=== PATIENT | male | born 1975 | race African-American/Black ===

== ENCOUNTER 2017-06-26 10:42 | Emergency (ER) | payer MEDICAID ==
[~2017-06-26] VITALS: Ht 175.3 cm; Wt 84.0 kg
[~2017-06-26 10:42] MED LIST: ALBU18HF2 IH; ALBU6.7H INH; AMLO2.5T45 PO; ASPI-1159 PO; ATOR80TA; CARV12.545 PO; CLOP75TA33 PO; DOCU-150 PO; FAMO20TA8 PO; HYDR-4009 PO; ISOS20TA8 PO; LOSA25TA12 PO; METO-539 PO; NICO1PAT15 TP; NITR0.4T49 SL; PANT40TA4 PO; PRAS10TA6 PO; RANO500T3 PO; TIOT18CA3 INH; WARF5TAB73 PO
[2017-06-26] MEDS ORDERED: ASPIRIN 81MG TABLET PO ONE (13:30)
[2017-06-26 14:38] LABS: BASOPHILS % 0.6 % (0.0-2.0); EOSINOPHILS % 0.5 % (0.0-5.0); HEMATOCRIT. 44.1 % (42.0-52.0); HEMOGLOBIN. 14.5 g/dL (14.0-18.0); LYMPHOCYTES % 26.5 % (20.0-50.0); MEAN CORPUSCULAR HEMOGLOBIN 30.9 pg (28.0-32.0); MEAN CORPUSCULAR VOLUME 93.7 fL (80.0-94.0); MEAN PLATELET VOLUME 9.2 fl (7.4-10.4); MONOCYTES % 10.7 % (2.0-8.0); NEUTROPHILS % 61.7 % (40.0-76.0); PLATELET 249 x1000/uL (130-400); RED CELL DISTRIBUTION WIDTH 15.8 % (11.6-14.6)
[2017-06-26 14:54] LABS: CHLORIDE 105 mEq/L (98-107); TROPONIN I < 0.02 ng/mL (0.00-0.04)
[2017-06-26 15:21] LABS: INR 1.1; PROTHROMBIN TIME 11.5 sec (9.4-11.6)
[2017-06-26 15:55] VITALS: BP 136/81
== END 2017-06-26 17:57 | disposition left against medical advice (07) ==
LOC: ER 11:32 → EDBEDREQ 15:49 → EDBEDREQTM 15:49 → ER 17:57 → CANBEDREQ 18:39
DX: R07.9 Chest pain, unspecified (principal); R11.2 Nausea with vomiting, unspecified; R06.9 Unspecified abnormalities of breathing; I11.0 Hypertensive heart disease with heart failure; I50.9 Heart failure, unspecified; J45.909 Unspecified asthma, uncomplicated; I25.10 Atherosclerotic heart disease of native coronary artery without angina pectoris; G40.909 Epilepsy, unspecified, not intractable, without status epilepticus; F17.200 Nicotine dependence, unspecified, uncomplicated; E78.00 Pure hypercholesterolemia, unspecified; E11.9 Type 2 diabetes mellitus without complications; F12.10 Cannabis abuse, uncomplicated; Z79.01 Long term (current) use of anticoagulants; Z79.82 Long term (current) use of aspirin; Z88.0 Allergy status to penicillin; Z95.5 Presence of coronary angioplasty implant and graft; Z91.018 Allergy to other foods
CPT/HCPCS: 36415; 71045; 80053; 83880; 84484; 85025; 85610; 93005; 99285

== ENCOUNTER 2017-11-03 06:21 | Emergency (ER) | payer MEDICAID ==
[~2017-11-03 06:21] MED LIST changes: +WARF-53 PO; -WARF5TAB73 PO
== END 2017-11-03 07:33 | disposition left against medical advice (07) ==
LOC: ER 07:20
DX: R07.9 Chest pain, unspecified (principal); Z53.21 Procedure and treatment not carried out due to patient leaving prior to being seen by health care provider

== ENCOUNTER 2017-11-05 14:36 | Inpatient (IN) | payer MEDICAID ==
[~2017-11-05] VITALS: Ht 175.3 cm; Wt 83.5 kg
[2017-11-05] MEDS ORDERED: ASPIRIN 81MG TABLET PO STA (14:58)
[2017-11-05] MEDS ORDERED: ONDANSETRON HCL 4MG/2ML VIAL IV STA (14:58)
[2017-11-05] MEDS ORDERED: MORPHINE SULFATE 4 MG/ML CPJ (NOT FOR IM USE) IV STA (14:58)
[2017-11-05] MEDS ORDERED: IPRATROPIUM/ALBUTEROL 0.5-3(2.5)MG/3ML NEB HHN ONE (15:00)
[2017-11-05] MEDS ORDERED: LEVOFLOXACIN 500MG TABLET PO ONE (15:00)
[2017-11-05] MEDS ORDERED: PREDNISONE 20MG TABLET PO ONE (15:00)
[2017-11-05 15:19] LABS: BASOPHILS % 0.7 % (0.0-2.0); EOSINOPHILS % 0.3 % (0.0-5.0); HEMATOCRIT. 44.6 % (42.0-52.0); HEMOGLOBIN. 15.1 g/dL (14.0-18.0); MEAN CORPUSCULAR HEMOGLOBIN 31.3 pg (28.0-32.0); MEAN CORPUSCULAR VOLUME 92.6 fL (80.0-94.0); MEAN PLATELET VOLUME 9.4 fl (7.4-10.4); PLATELET 204 x1000/uL (130-400); RED BLOOD CELL COUNT 4.81 mill/uL (4.7-6.1); RED CELL DISTRIBUTION WIDTH 16.8 % (11.6-14.6)
[2017-11-05 15:20] LABS: CHLORIDE 105 mEq/L (98-107)
[2017-11-05 15:25] LABS: D-DIMER 0.22 mg/L FEU (<0.50); ETHANOL BLOOD < 10 mg/dL; PARTIAL THROMBOPLASTIN TIME 31.9 sec (23.4-31.0)
[2017-11-05 15:30] LABS: PROTHROMBIN TIME 31.4 sec (9.4-11.6)
[2017-11-05 15:50] LABS: CLARITY URINE CLEAR (CLEAR); COLOR URINE DARK YELLOW (YELLOW); KETONES URINE 1+ (NEGATIVE); LEUKOCYTE ESTERASE URINE TRACE (NEGATIVE); NITRITE URINE NEGATIVE (NEGATIVE); OCCULT BLOOD URINE NEGATIVE (NEGATIVE); PH URINE 5.5 (4.5-8.0); PROTEIN URINE 1+ (NEGATIVE); SPECIFIC GRAVITY URINE 1.033 (1.005-1.030)
[2017-11-05 16:02] LABS: *COCAINE SCREEN URINE NEGATIVE (NEGATIVE); METHADONE URINE SCREEN NEGATIVE (NEGATIVE)
[2017-11-05 16:03] LABS: OPIATES URINE SCREEN PRESUMTIVE POSITIVE (NEGATIVE); PHENCYCLIDINE URINE SCREEN NEGATIVE (NEGATIVE)
[2017-11-05 16:06] LABS: *AMPHETAMINES SCREEN URINE NEGATIVE (NEGATIVE); *BARBITURATES SCREEN URINE NEGATIVE (NEGATIVE); *BENZODIAZEPINES SCREEN URINE NEGATIVE (NEGATIVE); CANNABINOID URINE SCREEN PRESUMTIVE POSITIVE (NEGATIVE)
[2017-11-05 19:03] VITALS: BP 124/77
[2017-11-05] MEDS ORDERED: IPRATROPIUM/ALBUTEROL 0.5-3(2.5)MG/3ML NEB INH PRN (19:15)
[2017-11-05] MEDS ORDERED: MAGNESIUM/ALUMINUM HYDROXIDE/SIMETHICONE 30ML UDC PO PRN (19:15)
[2017-11-05] MEDS ORDERED: LORAZEPAM 2MG/ML CPJ IV PRN (19:15)
[2017-11-05] MEDS ORDERED: CLONIDINE 0.1MG TABLET PO PRN (19:15)
[2017-11-05] MEDS ORDERED: HYDROCODONE/ACETAMINOPHEN 5/325MG TABLET PO PRN (19:15)
[2017-11-05] MEDS ORDERED: ACETAMINOPHEN 325MG TABLET PO PRN (19:15)
[2017-11-05] MEDS ORDERED: GUAIFENESIN 200MG/10ML SUGAR FREE UDC PO PRN (19:15)
[2017-11-05] MEDS ORDERED: DOCUSATE SODIUM 100MG CAPSULE PO PRN (19:15)
[2017-11-05 19:51] VITALS: BP 123/74
[2017-11-05 20:00] VITALS: BP 123/74
[2017-11-05] MEDS: ONDANSETRON HCL 4MG/2ML VIAL IV PRN (20:15)
[2017-11-05] MEDS: MORPHINE SULFATE 4 MG/ML CPJ (NOT FOR IM USE) IV PRN (20:42)
[2017-11-05] MEDS ORDERED: NA PHOS,M-B/NA PHOS,DI-BA ENEMA 118ML PR PRN (21:00)
[2017-11-06] VITALS: BP 116/60
[2017-11-06 00:23] LABS: CHLORIDE 105 mEq/L (98-107)
[2017-11-06] MEDS: MORPHINE SULFATE 4 MG/ML CPJ (NOT FOR IM USE) IV PRN ×6 (01:00→22:43)
[2017-11-06] MEDS ORDERED: FURO20TA4 PO (03:24)
[2017-11-06] MEDS ORDERED: LEVE1000 MT (03:24)
[2017-11-06] MEDS ORDERED: DILT30TA38 PO (03:24)
[2017-11-06 04:00] VITALS: BP 115/64
[2017-11-06] MEDS: ONDANSETRON HCL 4MG/2ML VIAL IV PRN ×3 (06:36→20:41)
[2017-11-06 07:34] LABS: BASOPHILS % 0.5 % (0.0-2.0); EOSINOPHILS % 0.1 % (0.0-5.0); HEMATOCRIT. 42.4 % (42.0-52.0); HEMOGLOBIN. 14.3 g/dL (14.0-18.0); LYMPHOCYTES % 20.8 % (20.0-50.0); MEAN CORPUSCULAR HEMOGLOBIN 31.2 pg (28.0-32.0); MEAN CORPUSCULAR VOLUME 92.6 fL (80.0-94.0); MEAN PLATELET VOLUME 9.9 fl (7.4-10.4); NEUTROPHILS % 69.6 % (40.0-76.0); PLATELET 186 x1000/uL (130-400); RED BLOOD CELL COUNT 4.57 mill/uL (4.7-6.1); RED CELL DISTRIBUTION WIDTH 16.8 % (11.6-14.6)
[2017-11-06 07:49] LABS: CHLORIDE 107 mEq/L (98-107)
[2017-11-06 08:00] VITALS: BP 106/62
[2017-11-06 08:07] LABS: LDL CHOLESTEROL 51 mg/dL (5-100)
[2017-11-06 08:08] LABS: HDL CHOLESTEROL 48 mg/dL (40-59); T4 FREE 1.02 ng/dL (0.76-1.46)
[2017-11-06] MEDS: AMLODIPINE 5MG TABLET PO SCH ×2 (10:00→20:50)
[2017-11-06] MEDS: METOPROLOL TARTRATE 25MG TABLET PO SCH ×2 (10:15→20:50)
[2017-11-06] MEDS: ISOSORBIDE MONONITRATE 30MG TABLET SR 24HR PO SCH (10:15)
[2017-11-06] MEDS: CLOPIDOGREL 75MG TABLET PO SCH (11:00)
[2017-11-06] MEDS: ASPIRIN 81MG EC TABLET PO SCH (11:00)
[2017-11-06 12:00] VITALS: BP 109/65
[2017-11-06 12:19] LABS: INR 3.1; PROTHROMBIN TIME 31.7 sec (9.4-11.6)
[2017-11-06 16:00] VITALS: BP 105/54
[2017-11-06] MEDS ORDERED: BENZONATATE 100MG CAPSULE PO PRN (17:15)
[2017-11-06] MEDS ORDERED: AZITHROMYCIN 500 MG TABLET PO NR (17:15)
[2017-11-06] MEDS ORDERED: WARFARIN SODIUM 5MG TABLET PO SCH (18:30)
[2017-11-06 20:00] VITALS: BP 109/73
[2017-11-06] MEDS: FAMOTIDINE 20MG/2ML VIAL IV SCH (20:42)
[2017-11-06] MEDS ORDERED: ATORVASTATIN CALCIUM 40MG TABLET PO SCH (21:00)
[2017-11-06] MEDS: IPRATROPIUM/ALBUTEROL 0.5-3(2.5)MG/3ML NEB HHN SCH (21:04)
[2017-11-07] VITALS (7 sets, daily range): BP systolic 100–118; BP diastolic 60–77
[2017-11-07] MEDS: IPRATROPIUM/ALBUTEROL 0.5-3(2.5)MG/3ML NEB HHN SCH ×2 (01:23→09:28)
[2017-11-07] MEDS: ONDANSETRON HCL 4MG/2ML VIAL IV PRN ×2 (03:14→08:22)
[2017-11-07] MEDS: MORPHINE SULFATE 4 MG/ML CPJ (NOT FOR IM USE) IV PRN (03:22)
[2017-11-07] MEDS: AMLODIPINE 5MG TABLET PO SCH (08:22)
[2017-11-07] MEDS: FAMOTIDINE 20MG/2ML VIAL IV SCH (08:22)
[2017-11-07] MEDS: ISOSORBIDE MONONITRATE 30MG TABLET SR 24HR PO SCH (08:23)
[2017-11-07] MEDS: ASPIRIN 81MG EC TABLET PO SCH (08:24)
[2017-11-07] MEDS: METOPROLOL TARTRATE 25MG TABLET PO SCH (08:24)
[2017-11-07] MEDS: CLOPIDOGREL 75MG TABLET PO SCH (08:24)
[2017-11-07] MEDS ORDERED: AZITHROMYCIN 500 MG TABLET PO SCH (09:00)
[2017-11-07] MEDS ORDERED: MONTELUKAST SODIUM 10MG TABLET PO SCH (17:00)
== END 2017-11-07 10:40 | disposition home or self-care (01) | DRG 133 ==
LOC: EDBEDREQ 16:17 → ER 16:31 → ENRESERV 16:55 → 6WST 18:10
PROVIDERS: ADMIT Internal Medicine; ATTEND Internal Medicine
DX: J96.00 Acute respiratory failure, unspecified whether with hypoxia or hypercapnia (principal); D68.9 Coagulation defect, unspecified; I50.9 Heart failure, unspecified; J45.901 Unspecified asthma with (acute) exacerbation; K21.9 Gastro-esophageal reflux disease without esophagitis; I10 Essential (primary) hypertension; E78.5 Hyperlipidemia, unspecified; E05.90 Thyrotoxicosis, unspecified without thyrotoxic crisis or storm; Z72.0 Tobacco use; J06.9 Acute upper respiratory infection, unspecified; M85.08 Fibrous dysplasia (monostotic), other site; I25.10 Atherosclerotic heart disease of native coronary artery without angina pectoris; G40.909 Epilepsy, unspecified, not intractable, without status epilepticus
CPT/HCPCS: 36415; 71045; 80048; 80053; 80061; 80305; 81003; 82962; 83690; 83880; 84439; 84443; 84484; 85025; 85379; 85610; 85730; 93005; 94640; 96374; 96375; 99285; 99406; G0482; J2270; J2405; J3490; J7512; J7620

== ENCOUNTER 2018-03-23 06:12 | Emergency (ER) | payer MEDICAID ==
[~2018-03-23] VITALS: Ht 175.3 cm; Wt 86.3 kg
[~2018-03-23 06:12] MED LIST changes: -ALBU18HF2 IH; -ALBU6.7H INH; -ATOR80TA; -CARV12.545 PO; +CLOP75TA16 PO; -CLOP75TA33 PO; +DILT30TA38 PO; -DOCU-150 PO; +HYDR-4009 MT; -HYDR-4009 PO; -ISOS20TA8 PO; +LACT10SO7 PO; +LEVE1000 MT; +LIP40 PO; -LOSA25TA12 PO; -METO-539 PO; +NEPVIT PO; -NICO1PAT15 TP; -NITR0.4T49 SL; -PANT40TA4 PO; -PRAS10TA6 PO; -RANO500T3 PO; -WARF-53 PO; +WARF7.5T22 MT
[2018-03-23] MEDS ORDERED: HYDROCODONE/ACETAMINOPHEN 5/325MG TABLET PO STA (09:49)
[2018-03-23 10:11] LABS: INR 1.2; PROTHROMBIN TIME 11.8 sec (9.1-11.1)
[2018-03-23 10:15] LABS: BASOPHILS % 0.5 % (0.0-2.0); EOSINOPHILS % 0.4 % (0.0-5.0); HEMATOCRIT. 41.5 % (42.0-52.0); HEMOGLOBIN. 13.8 g/dL (14.0-18.0); LYMPHOCYTES % 28.6 % (20.0-50.0); MEAN CORPUSCULAR HEMOGLOBIN 31.2 pg (28.0-32.0); MEAN CORPUSCULAR VOLUME 93.5 fL (80.0-94.0); MEAN PLATELET VOLUME 9.3 fl (7.4-10.4); MONOCYTES % 9.2 % (2.0-8.0); NEUTROPHILS % 61.3 % (40.0-76.0); PLATELET 237 x1000/uL (130-400); RED BLOOD CELL COUNT 4.44 mill/uL (4.7-6.1); RED CELL DISTRIBUTION WIDTH 16.8 % (11.6-14.6)
[2018-03-23 10:16] LABS: CHLORIDE 107 mEq/L (98-107)
[2018-03-23] MEDS ORDERED: ONDANSETRON 4MG/5ML UDC PO ONE (10:30)
[2018-03-23 10:35] LABS: CLARITY URINE CLEAR (CLEAR); COLOR URINE YELLOW (YELLOW); KETONES URINE NEGATIVE (NEGATIVE); LEUKOCYTE ESTERASE URINE NEGATIVE (NEGATIVE); NITRITE URINE NEGATIVE (NEGATIVE); OCCULT BLOOD URINE NEGATIVE (NEGATIVE); PROTEIN URINE NEGATIVE (NEGATIVE); SPECIFIC GRAVITY URINE 1.025 (1.005-1.030); UROBILINOGEN URINE 0.2 E.U./dL (0.2-1.0)
[2018-03-23 10:56] LABS: *AMPHETAMINES SCREEN URINE NEGATIVE (NEGATIVE); *BENZODIAZEPINES SCREEN URINE NEGATIVE (NEGATIVE); *COCAINE SCREEN URINE NEGATIVE (NEGATIVE); CANNABINOID URINE SCREEN PRESUMTIVE POSITIVE (NEGATIVE); METHADONE URINE SCREEN NEGATIVE (NEGATIVE); OPIATES URINE SCREEN NEGATIVE (NEGATIVE)
[2018-03-23 11:05] LABS: *BARBITURATES SCREEN URINE NEGATIVE (NEGATIVE); PHENCYCLIDINE URINE SCREEN NEGATIVE (NEGATIVE)
[2018-03-23] MEDS ORDERED: ONDANSETRON HCL 4MG/2ML INJ IV PRN (11:45)
[2018-03-23] MEDS ORDERED: HYDROCODONE/ACETAMINOPHEN 5/325MG TABLET PO PRN (11:45)
[2018-03-23 12:21] LABS: CREATINE KINASE 95 IU/L (39-308); CREATINE KINASE MB FRACTION < 1.0 ng/mL (0.5-3.6)
[2018-03-23] MEDS ORDERED: CARVEDILOL 3.125 MG TABLET PO SCH (12:45)
[2018-03-23] MEDS: MORPHINE SULFATE 4 MG/ML CPJ (NOT FOR IM USE) IV PRN ×2 (14:04→18:20)
[2018-03-23] MEDS ORDERED: ENOXAPARIN 80MG/0.8ML SYR SUBCUT SCH (17:00)
[2018-03-23] MEDS ORDERED: IPRATROPIUM/ALBUTEROL 0.5-3(2.5)MG/3ML NEB HHN PRN (17:15)
[2018-03-23] MEDS ORDERED: NICOTINE 14MG PATCH TD SCH (17:15)
[2018-03-23] MEDS ORDERED: BUDESONIDE 0.5MG/2ML NEB HHN SCH (17:15)
[2018-03-23] MEDS ORDERED: WARFARIN SODIUM 7.5MG TABLET PO SCH (18:00)
[2018-03-23 20:55] VITALS: BP 110/62
[2018-03-23] MEDS ORDERED: AMLODIPINE 2.5MG TABLET PO SCH (21:00)
[2018-03-24] MEDS ORDERED: CLOPIDOGREL 75MG TABLET PO SCH (09:00)
== END 2018-03-23 20:58 | disposition left against medical advice (07) ==
LOC: ER 06:12 → CANRESERV 19:19 → ENRESERV 19:19 → ER 20:58 → CANBEDREQ 21:07
DX: R07.89 Other chest pain (principal); R06.02 Shortness of breath; M79.602 Pain in left arm; I25.10 Atherosclerotic heart disease of native coronary artery without angina pectoris; I11.0 Hypertensive heart disease with heart failure; I50.22 Chronic systolic (congestive) heart failure; Z95.5 Presence of coronary angioplasty implant and graft; I25.2 Old myocardial infarction; E78.5 Hyperlipidemia, unspecified; Z91.19 Patient's noncompliance with other medical treatment and regimen; F17.210 Nicotine dependence, cigarettes, uncomplicated; F12.90 Cannabis use, unspecified, uncomplicated; G40.909 Epilepsy, unspecified, not intractable, without status epilepticus; J45.909 Unspecified asthma, uncomplicated; Z79.01 Long term (current) use of anticoagulants; Z79.82 Long term (current) use of aspirin; Z79.899 Other long term (current) drug therapy
CPT/HCPCS: 36415; 71045; 80053; 80305; 81003; 82550; 82553; 84484; 85025; 85610; 93005; 96374; 96375; 99285; J2270; J2405; Q0162

== ENCOUNTER 2018-04-09 10:35 | Emergency (ER) | payer MEDICAID | END 2018-04-09 11:11 | disposition left against medical advice (07) | LOC: ER 10:50 | DX: Z53.21 Procedure and treatment not carried out due to patient leaving prior to being seen by health care provider (principal) ==

== ENCOUNTER 2018-04-10 08:21 | Inpatient (IN) | payer MEDICAID ==
[~2018-04-10] VITALS: Ht 175.3 cm; Wt 93.0 kg
[2018-04-10] MEDS ORDERED: MORPHINE SULFATE 4 MG/ML CPJ (NOT FOR IM USE) IV STA (09:35)
[2018-04-10] MEDS ORDERED: ONDANSETRON HCL 4MG/2ML INJ IV STA (09:35)
[2018-04-10] MEDS ORDERED: FUROSEMIDE 40MG/4ML VIAL IV ONE (09:45)
[2018-04-10] MEDS ORDERED: NITROGLYCERIN OINT 1GM/INCH UDPKT TD ONE (09:45)
[2018-04-10] MEDS ORDERED: ASPIRIN 81MG TABLET PO ONE (09:45)
[2018-04-10 09:47] LABS: CHLORIDE 102 mEq/L (98-107)
[2018-04-10 09:49] LABS: BASOPHILS % 0.4 % (0.0-2.0); HEMATOCRIT. 41.8 % (42.0-52.0); HEMOGLOBIN. 14.1 g/dL (14.0-18.0); INR 2.2; LYMPHOCYTES % 15.6 % (20.0-50.0); MEAN CORPUSCULAR HEMOGLOBIN 31.9 pg (28.0-32.0); MEAN CORPUSCULAR VOLUME 94.3 fL (80.0-94.0); MEAN PLATELET VOLUME 9.4 fl (7.4-10.4); MONOCYTES % 7.6 % (2.0-8.0); NEUTROPHILS % 76.4 % (40.0-76.0); PARTIAL THROMBOPLASTIN TIME 30.7 sec (23.4-31.0); PLATELET 222 x1000/uL (130-400); PROTHROMBIN TIME 21.7 sec (9.1-11.1); RED BLOOD CELL COUNT 4.43 mill/uL (4.7-6.1); RED CELL DISTRIBUTION WIDTH 17.6 % (11.6-14.6)
[2018-04-10 09:54] LABS: ETHANOL BLOOD 58 mg/dL
[2018-04-10] MEDS: ONDANSETRON HCL 4MG/2ML INJ IV PRN ×2 (16:43→21:39)
[2018-04-10] MEDS: MORPHINE SULFATE 4 MG/ML CPJ (NOT FOR IM USE) IV PRN ×2 (16:43→20:52)
[2018-04-10] MEDS ORDERED: ACETAMINOPHEN 325MG TABLET PO PRN (17:00)
[2018-04-10] MEDS ORDERED: CLONIDINE 0.1MG TABLET PO PRN (17:00)
[2018-04-10 17:50] VITALS: BP 127/78
[2018-04-10] MEDS ORDERED: WARFARIN SODIUM 7.5MG TABLET PO SCH (18:00)
[2018-04-10 20:00] VITALS: BP 150/74
[2018-04-10 20:52] LABS: CREATINE KINASE MB FRACTION 1.7 ng/mL (0.5-3.6)
[2018-04-11] VITALS: BP 131/83
[2018-04-11] MEDS ORDERED: METO-396 MT (00:20)
[2018-04-11] MEDS: MORPHINE SULFATE 4 MG/ML CPJ (NOT FOR IM USE) IV PRN ×5 (01:04→22:06)
[2018-04-11 04:00] VITALS: BP 132/85
[2018-04-11] MEDS: ONDANSETRON HCL 4MG/2ML INJ IV PRN ×3 (06:37→22:06)
[2018-04-11 08:00] VITALS: BP 116/78
[2018-04-11] MEDS: NICOTINE 7MG PATCH TD SCH (08:50)
[2018-04-11 11:01] LABS: INR 2.7; PROTHROMBIN TIME 26.3 sec (9.1-11.1)
[2018-04-11 11:04] LABS: BASOPHILS % 0.5 % (0.0-2.0); EOSINOPHILS % 0.5 % (0.0-5.0); HEMATOCRIT. 44.4 % (42.0-52.0); HEMOGLOBIN. 14.9 g/dL (14.0-18.0); LYMPHOCYTES % 25.9 % (20.0-50.0); MEAN CORPUSCULAR HEMOGLOBIN 31.4 pg (28.0-32.0); MEAN CORPUSCULAR VOLUME 93.9 fL (80.0-94.0); MONOCYTES % 12.3 % (2.0-8.0); NEUTROPHILS % 60.8 % (40.0-76.0); RED BLOOD CELL COUNT 4.73 mill/uL (4.7-6.1); RED CELL DISTRIBUTION WIDTH 17.2 % (11.6-14.6)
[2018-04-11 11:38] LABS: CHLORIDE 101 mEq/L (98-107)
[2018-04-11 12:00] VITALS: BP 117/72
[2018-04-11 16:00] VITALS: BP 139/86
[2018-04-11] MEDS ORDERED: WARFARIN SODIUM 3MG TABLET PO SCH (18:00)
[2018-04-11 20:00] VITALS: BP 134/77
[2018-04-11] MEDS: LEVETIRACETAM 500MG TABLET PO SCH (21:11)
[2018-04-11] MEDS: ATORVASTATIN CALCIUM 40MG TABLET PO SCH (21:11)
[2018-04-11] MEDS: FAMOTIDINE 20MG TABLET PO SCH (21:11)
[2018-04-11] MEDS: LACTULOSE 20G/30ML UDC PO SCH (21:11)
[2018-04-11] MEDS: DILTIAZEM HCL 30MG TABLET PO SCH (21:15)
[2018-04-12] VITALS (7 sets, daily range): BP systolic 108–135; BP diastolic 64–87
[2018-04-12] MEDS: MORPHINE SULFATE 4 MG/ML CPJ (NOT FOR IM USE) IV PRN ×4 (02:35→23:22)
[2018-04-12] MEDS: LACTULOSE 20G/30ML UDC PO SCH ×3 (06:00→22:00)
[2018-04-12 06:57] LABS: INR 2.7; PROTHROMBIN TIME 26.8 sec (9.1-11.1)
[2018-04-12 07:05] LABS: BASOPHILS % 0.7 % (0.0-2.0); HEMATOCRIT. 41.6 % (42.0-52.0); HEMOGLOBIN. 14.2 g/dL (14.0-18.0); MEAN CORPUSCULAR HEMOGLOBIN 31.6 pg (28.0-32.0); MEAN CORPUSCULAR VOLUME 92.8 fL (80.0-94.0); MEAN PLATELET VOLUME 9.6 fl (7.4-10.4); MONOCYTES % 12.9 % (2.0-8.0); NEUTROPHILS % 51.4 % (40.0-76.0); PLATELET 216 x1000/uL (130-400); RED BLOOD CELL COUNT 4.48 mill/uL (4.7-6.1); RED CELL DISTRIBUTION WIDTH 17.1 % (11.6-14.6)
[2018-04-12 07:53] LABS: CHLORIDE 105 mEq/L (98-107)
[2018-04-12] MEDS: ONDANSETRON HCL 4MG/2ML INJ IV PRN ×2 (08:12→23:21)
[2018-04-12] MEDS: LEVETIRACETAM 500MG TABLET PO SCH ×2 (08:13→21:35)
[2018-04-12] MEDS: CLOPIDOGREL 75MG TABLET PO SCH (08:13)
[2018-04-12] MEDS: FOLIC ACID/VITAMIN B COMP W-C TABLET PO SCH (08:13)
[2018-04-12] MEDS: ASPIRIN 81MG TABLET PO SCH (08:13)
[2018-04-12] MEDS: DILTIAZEM HCL 30MG TABLET PO SCH ×2 (08:14→21:36)
[2018-04-12] MEDS: AMLODIPINE 2.5MG TABLET PO SCH (08:27)
[2018-04-12] MEDS: NICOTINE 21MG PATCH TD SCH (08:47)
[2018-04-12] MEDS: NICOTINE 7MG PATCH TD SCH (08:48)
[2018-04-12] MEDS ORDERED: WARFARIN SODIUM 7.5MG TABLET PO SCH (09:00)
[2018-04-12] MEDS: HYDROCODONE/ACETAMINOPHEN 5/325MG TABLET PO PRN ×2 (17:08→21:38)
[2018-04-12] MEDS ORDERED: WARFARIN SODIUM 3MG TABLET PO NR (18:00)
[2018-04-12] MEDS: FAMOTIDINE 20MG TABLET PO SCH (21:36)
[2018-04-12] MEDS: ATORVASTATIN CALCIUM 40MG TABLET PO SCH (21:46)
[2018-04-13 00:28] VITALS: BP 115/69
[2018-04-13] MEDS: HYDROCODONE/ACETAMINOPHEN 5/325MG TABLET PO PRN ×3 (03:45→12:33)
[2018-04-13 04:00] VITALS: BP 130/72
[2018-04-13 04:05] LABS: CLARITY URINE CLEAR (CLEAR); COLOR URINE YELLOW (YELLOW); KETONES URINE NEGATIVE (NEGATIVE); LEUKOCYTE ESTERASE URINE NEGATIVE (NEGATIVE); NITRITE URINE NEGATIVE (NEGATIVE); OCCULT BLOOD URINE NEGATIVE (NEGATIVE); PROTEIN URINE NEGATIVE (NEGATIVE); SPECIFIC GRAVITY URINE 1.026 (1.005-1.030)
[2018-04-13 04:38] LABS: *AMPHETAMINES SCREEN URINE NEGATIVE (NEGATIVE); *BARBITURATES SCREEN URINE NEGATIVE (NEGATIVE); *BENZODIAZEPINES SCREEN URINE NEGATIVE (NEGATIVE); CANNABINOID URINE SCREEN PRESUMTIVE POSITIVE (NEGATIVE); OPIATES URINE SCREEN PRESUMTIVE POSITIVE (NEGATIVE); PHENCYCLIDINE URINE SCREEN NEGATIVE (NEGATIVE)
[2018-04-13 04:39] LABS: *COCAINE SCREEN URINE NEGATIVE (NEGATIVE); METHADONE URINE SCREEN NEGATIVE (NEGATIVE)
[2018-04-13] MEDS: LACTULOSE 20G/30ML UDC PO SCH (05:19)
[2018-04-13] MEDS: MORPHINE SULFATE 4 MG/ML CPJ (NOT FOR IM USE) IV PRN ×2 (05:34→09:50)
[2018-04-13] MEDS: ONDANSETRON HCL 4MG/2ML INJ IV PRN ×3 (05:38→12:33)
[2018-04-13] MEDS: LEVETIRACETAM 500MG TABLET PO SCH (08:36)
[2018-04-13] MEDS: DILTIAZEM HCL 30MG TABLET PO SCH (08:36)
[2018-04-13] MEDS: FOLIC ACID/VITAMIN B COMP W-C TABLET PO SCH (08:36)
[2018-04-13] MEDS: CLOPIDOGREL 75MG TABLET PO SCH (08:36)
[2018-04-13] MEDS: ASPIRIN 81MG TABLET PO SCH (08:37)
[2018-04-13] MEDS: NICOTINE 21MG PATCH TD SCH (09:00)
[2018-04-13] MEDS: NICOTINE 7MG PATCH TD SCH (09:00)
[2018-04-13 09:23] VITALS: BP 112/70
[2018-04-13] MEDS: AMLODIPINE 2.5MG TABLET PO SCH (09:58)
[2018-04-13 12:50] VITALS: BP 127/79
[2018-04-13 15:01] VITALS: BP 112/70
== END 2018-04-13 15:25 | disposition home or self-care (01) | DRG 198 ==
LOC: ER 08:47 → 6WST 10:17 → EDBEDREQ 10:19 → ENRESERV 16:21
PROVIDERS: ADMIT Internal Medicine; ATTEND Internal Medicine
DX: R07.89 Other chest pain (principal); I25.10 Atherosclerotic heart disease of native coronary artery without angina pectoris; D68.9 Coagulation defect, unspecified; I11.0 Hypertensive heart disease with heart failure; I50.22 Chronic systolic (congestive) heart failure; Z95.5 Presence of coronary angioplasty implant and graft; J45.909 Unspecified asthma, uncomplicated; I25.5 Ischemic cardiomyopathy; G40.909 Epilepsy, unspecified, not intractable, without status epilepticus; F17.210 Nicotine dependence, cigarettes, uncomplicated; F17.200 Nicotine dependence, unspecified, uncomplicated; E78.5 Hyperlipidemia, unspecified; F10.129 Alcohol abuse with intoxication, unspecified; F12.90 Cannabis use, unspecified, uncomplicated; G89.4 Chronic pain syndrome; I25.2 Old myocardial infarction; Z79.01 Long term (current) use of anticoagulants; Z82.49 Family history of ischemic heart disease and other diseases of the circulatory system; Z88.8 Allergy status to other drugs, medicaments and biological substances; Z71.6 Tobacco abuse counseling
CPT/HCPCS: 36415; 71045; 80048; 80305; 82550; 82553; 83880; 84484; 86850; 86900; 93005; 93306; 96374; 96375; 99291; C1893; G0482; J1940; J2270; J2405

== ENCOUNTER 2018-04-27 08:31 | Inpatient (IN) | payer MEDICAID ==
[~2018-04-27] VITALS: Ht 175.3 cm; Wt 99.8 kg
[~2018-04-27 08:31] MED LIST changes: +METO-396 MT; -WARF7.5T22 MT
[2018-04-27 10:28] LABS: CHLORIDE 109 mEq/L (98-107)
[2018-04-27] MEDS ORDERED: MORPHINE SULFATE 4 MG/ML CPJ (NOT FOR IM USE) IV ONE (10:30)
[2018-04-27 10:31] LABS: BASOPHILS % 0.4 % (0.0-2.0); EOSINOPHILS % 0.1 % (0.0-5.0); HEMATOCRIT. 39.6 % (42.0-52.0); HEMOGLOBIN. 13.3 g/dL (14.0-18.0); LYMPHOCYTES % 26.1 % (20.0-50.0); MEAN CORPUSCULAR HEMOGLOBIN 31.5 pg (28.0-32.0); MEAN CORPUSCULAR VOLUME 94.2 fL (80.0-94.0); MEAN PLATELET VOLUME 9.4 fl (7.4-10.4); MONOCYTES % 6.8 % (2.0-8.0); NEUTROPHILS % 66.6 % (40.0-76.0); PLATELET 195 x1000/uL (130-400); RED BLOOD CELL COUNT 4.21 mill/uL (4.7-6.1); RED CELL DISTRIBUTION WIDTH 17.8 % (11.6-14.6)
[2018-04-27] MEDS ORDERED: MORPHINE SULFATE 10 MG/ML CPJ IV ONE (11:00)
[2018-04-27] MEDS ORDERED: ONDANSETRON HCL 4MG/2ML INJ IV ONE (11:00)
[2018-04-27] MEDS ORDERED: ONDANSETRON HCL 4MG/2ML INJ ONE (11:03)
[2018-04-27] MEDS ORDERED: DOCUSATE SODIUM 100MG CAPSULE PO PRN (12:30)
[2018-04-27] MEDS ORDERED: CLONIDINE 0.1MG TABLET PO PRN (12:30)
[2018-04-27] MEDS ORDERED: IPRATROPIUM/ALBUTEROL 0.5-3(2.5)MG/3ML NEB INH PRN (12:30)
[2018-04-27] MEDS ORDERED: ACETAMINOPHEN 325MG TABLET PO PRN (12:30)
[2018-04-27] MEDS ORDERED: LORAZEPAM 2MG/ML CPJ IV PRN ×2 (12:30→18:15)
[2018-04-27] MEDS ORDERED: ONDANSETRON HCL 4MG/2ML INJ IV PRN (12:30)
[2018-04-27] MEDS ORDERED: MAGNESIUM/ALUMINUM HYDROXIDE/SIMETHICONE 30ML UDC PO PRN (12:30)
[2018-04-27] MEDS ORDERED: GUAIFENESIN 200MG/10ML SUGAR FREE UDC PO PRN (12:30)
[2018-04-27 12:50] LABS: COLOR URINE YELLOW (YELLOW); KETONES URINE NEGATIVE (NEGATIVE); LEUKOCYTE ESTERASE URINE NEGATIVE (NEGATIVE); NITRITE URINE NEGATIVE (NEGATIVE); OCCULT BLOOD URINE NEGATIVE (NEGATIVE); PROTEIN URINE 1+ (NEGATIVE); SPECIFIC GRAVITY URINE 1.025 (1.005-1.030); UROBILINOGEN URINE 0.2 E.U./dL (0.2-1.0)
[2018-04-27 12:52] LABS: PARTIAL THROMBOPLASTIN TIME 25.4 sec (23.4-31.0); PROTHROMBIN TIME 10.2 sec (9.1-11.1)
[2018-04-27 12:55] LABS: CLARITY URINE CLEAR (CLEAR)
[2018-04-27] MEDS: HYDROCODONE/ACETAMINOPHEN 5/325MG TABLET PO PRN (13:21)
[2018-04-27 14:34] LABS: *AMPHETAMINES SCREEN URINE NEGATIVE (NEGATIVE); *BARBITURATES SCREEN URINE NEGATIVE (NEGATIVE); *BENZODIAZEPINES SCREEN URINE NEGATIVE (NEGATIVE); *COCAINE SCREEN URINE NEGATIVE (NEGATIVE); OPIATES URINE SCREEN NEGATIVE (NEGATIVE)
[2018-04-27 14:36] LABS: CANNABINOID URINE SCREEN PRESUMTIVE POSITIVE (NEGATIVE); METHADONE URINE SCREEN NEGATIVE (NEGATIVE); PHENCYCLIDINE URINE SCREEN NEGATIVE (NEGATIVE)
[2018-04-27 19:39] LABS: CHLORIDE 108 mEq/L (98-107)
[2018-04-27 19:50] LABS: CREATINE KINASE 138 IU/L (39-308)
[2018-04-27 19:51] LABS: CREATINE KINASE MB FRACTION 1.2 ng/mL (0.5-3.6)
[2018-04-27 23:49] LABS: CREATINE KINASE 135 IU/L (39-308); CREATINE KINASE MB FRACTION 1.3 ng/mL (0.5-3.6)
[2018-04-28] MEDS: HYDROCODONE/ACETAMINOPHEN 5/325MG TABLET PO PRN ×3 (02:24→08:32)
[2018-04-28 04:00] VITALS: BP 114/62
[2018-04-28] MEDS ORDERED: PANTOPRAZOLE 40MG DR TABLET PO SCH ×2 (04:16→07:40)
[2018-04-28 05:11] VITALS: BP_SYST 100; BP_SYST 123; BP_DIAS 65; BP_DIAS 78
[2018-04-28 08:27] LABS: BASOPHILS % 0.4 % (0.0-2.0); EOSINOPHILS % 0.4 % (0.0-5.0); LYMPHOCYTES % 14.7 % (20.0-50.0); MEAN CORPUSCULAR HEMOGLOBIN 31.5 pg (28.0-32.0); MEAN CORPUSCULAR VOLUME 94.2 fL (80.0-94.0); MEAN PLATELET VOLUME 9.6 fl (7.4-10.4); MONOCYTES % 8.3 % (2.0-8.0); NEUTROPHILS % 76.2 % (40.0-76.0); PLATELET 188 x1000/uL (130-400); RED BLOOD CELL COUNT 4.13 mill/uL (4.7-6.1)
[2018-04-28] MEDS ORDERED: HYDROCODONE/ACETAMINOPHEN 10/325MG TABLET PO PRN (08:45)
[2018-04-28] MEDS ORDERED: METOPROLOL TARTRATE 25MG TABLET PO SCH (09:00)
[2018-04-28] MEDS ORDERED: ASPIRIN 81MG EC TABLET PO SCH (09:00)
[2018-04-28] MEDS ORDERED: ENOXAPARIN 40MG/0.4ML SYR SUBCUT SCH (09:00)
[2018-04-28] MEDS ORDERED: CLOPIDOGREL 75MG TABLET PO SCH (09:00)
[2018-04-28] MEDS ORDERED: ATORVASTATIN CALCIUM 40MG TABLET PO SCH (21:00)
== END 2018-04-28 09:11 | disposition left against medical advice (07) | DRG 203 ==
LOC: ER 08:47 → 7WST 11:38 → EDBEDREQTM 11:40 → EDBEDREQ 11:40 → ENRESERV 04-28 00:14
PROVIDERS: ADMIT Internal Medicine; ATTEND Internal Medicine
DX: M94.0 Chondrocostal junction syndrome [Tietze] (principal); I11.0 Hypertensive heart disease with heart failure; I50.9 Heart failure, unspecified; I25.10 Atherosclerotic heart disease of native coronary artery without angina pectoris; E78.5 Hyperlipidemia, unspecified; G40.909 Epilepsy, unspecified, not intractable, without status epilepticus; I25.5 Ischemic cardiomyopathy; J44.9 Chronic obstructive pulmonary disease, unspecified; M95.4 Acquired deformity of chest and rib; F19.10 Other psychoactive substance abuse, uncomplicated; F17.210 Nicotine dependence, cigarettes, uncomplicated; Z53.21 Procedure and treatment not carried out due to patient leaving prior to being seen by health care provider; Z91.19 Patient's noncompliance with other medical treatment and regimen; Z88.8 Allergy status to other drugs, medicaments and biological substances; Z91.018 Allergy to other foods; Z79.899 Other long term (current) drug therapy; Z82.49 Family history of ischemic heart disease and other diseases of the circulatory system
CPT/HCPCS: 36415; 71045; 80048; 80061; 80305; 82550; 82553; 83735; 83880; 84443; 84484; 93005; 93970; 96374; 96375; 96376; 99285; J2060; J2270; J2405

== ENCOUNTER 2018-05-14 16:53 | Inpatient (IN) | payer MEDICAID ==
[~2018-05-14] VITALS: Ht 175.3 cm; Wt 88.9 kg
[2018-05-14] MEDS ORDERED: ONDANSETRON HCL 4MG/2ML INJ IV STA (18:11)
[2018-05-14] MEDS ORDERED: MORPHINE SULFATE 4 MG/ML CPJ (NOT FOR IM USE) IV STA (18:11)
[2018-05-14] MEDS ORDERED: FUROSEMIDE 40MG/4ML VIAL IV ONE (18:15)
[2018-05-14] MEDS ORDERED: ASPIRIN 81MG TABLET PO ONE (18:15)
[2018-05-14] MEDS ORDERED: HYDROCODONE/ACETAMINOPHEN 10/325MG TABLET PO ONE (18:45)
[2018-05-14 20:16] LABS: BASOPHILS % 0.9 % (0.0-2.0); EOSINOPHILS % 1.5 % (0.0-5.0); HEMATOCRIT. 43.8 % (42.0-52.0); HEMOGLOBIN. 14.4 g/dL (14.0-18.0); LYMPHOCYTES % 42.3 % (20.0-50.0); MEAN CORPUSCULAR HEMOGLOBIN 31.4 pg (28.0-32.0); MEAN CORPUSCULAR VOLUME 95.2 fL (80.0-94.0); MEAN PLATELET VOLUME 9.6 fl (7.4-10.4); MONOCYTES % 13.6 % (2.0-8.0); NEUTROPHILS % 41.7 % (40.0-76.0); PLATELET 198 x1000/uL (130-400); RED CELL DISTRIBUTION WIDTH 17.2 % (11.6-14.6)
[2018-05-14 20:20] LABS: CHLORIDE 110 mEq/L (98-107)
[2018-05-14 20:23] LABS: PARTIAL THROMBOPLASTIN TIME 25.2 sec (23.4-31.0); PROTHROMBIN TIME 10.3 sec (9.1-11.1)
[2018-05-14] MEDS ORDERED: POTASSIUM CHLORIDE 20MEQ TABLET SR PO ONE (21:00)
[2018-05-15] VITALS: BP 106/54
[2018-05-15 01:00] VITALS: BP 142/70
[2018-05-15] MEDS: MORPHINE SULFATE 10MG/5ML ORAL SOLN UDC PO PRN ×2 (02:48→08:28)
[2018-05-15] MEDS: NITROGLYCERIN OINT 1GM/INCH UDPKT TD SCH ×4 (07:17→21:47)
[2018-05-15 08:00] VITALS: BP 128/90
[2018-05-15] MEDS: LEVETIRACETAM 500MG/5ML CUP PO SCH ×2 (08:31→21:41)
[2018-05-15] MEDS: ASPIRIN 325MG EC TABLET PO SCH (08:31)
[2018-05-15] MEDS ORDERED: WARF7.5T48 PO (08:39)
[2018-05-15] MEDS ORDERED: AM500 PO (08:42)
[2018-05-15] MEDS: METOPROLOL TARTRATE 50MG TABLET PO SCH ×2 (08:44→21:42)
[2018-05-15 08:45] LABS: HEMATOCRIT 42.8 % (42.0-52.0); HEMOGLOBIN 14.4 g/dL (14.0-18.0); MEAN CORPUSCULAR HEMOGLOBIN 31.8 pg (28.0-32.0); MEAN CORPUSCULAR VOLUME 94.4 fL (80.0-94.0); PLATELET 215 x1000/uL (130-400); RED BLOOD CELL COUNT 4.53 mill/uL (4.7-6.1); RED CELL DISTRIBUTION WIDTH 17.9 % (11.6-14.6)
[2018-05-15 08:56] LABS: LDL CHOLESTEROL 67 mg/dL (5-100)
[2018-05-15 08:58] LABS: HDL CHOLESTEROL 45 mg/dL (40-59)
[2018-05-15 12:00] VITALS: BP 110/68
[2018-05-15] MEDS ORDERED: POTASSIUM CHLORIDE 20MEQ TABLET SR PO NR (12:43)
[2018-05-15] MEDS: CLOPIDOGREL 75MG TABLET PO SCH (13:03)
[2018-05-15] MEDS: HYDROMORPHONE HCL/PF 2MG/ML CPJ IV PRN ×2 (13:03→19:12)
[2018-05-15 16:00] VITALS: BP 123/81
[2018-05-15] MEDS ORDERED: CLONIDINE 0.1MG TABLET PO PRN (16:00)
[2018-05-15] MEDS ORDERED: CLONIDINE 0.2MG TABLET PO PRN (16:00)
[2018-05-15] MEDS: ONDANSETRON HCL 4MG/2ML INJ IV PRN (19:12)
[2018-05-15 20:00] VITALS: BP 136/83
[2018-05-15] MEDS: ATORVASTATIN CALCIUM 40MG TABLET PO SCH (21:41)
[2018-05-15] MEDS: FAMOTIDINE 20MG TABLET PO SCH (21:41)
[2018-05-15] MEDS: AMLODIPINE 2.5MG TABLET PO SCH (21:42)
[2018-05-15] MEDS: DILTIAZEM HCL 30MG TABLET PO SCH (21:42)
[2018-05-16] VITALS: BP 107/66
[2018-05-16] MEDS: ONDANSETRON HCL 4MG/2ML INJ IV PRN ×4 (02:26→21:23)
[2018-05-16] MEDS: HYDROMORPHONE HCL/PF 2MG/ML CPJ IV PRN ×4 (02:29→20:52)
[2018-05-16 03:02] LABS: *AMPHETAMINES SCREEN URINE NEGATIVE (NEGATIVE); *BARBITURATES SCREEN URINE NEGATIVE (NEGATIVE); *BENZODIAZEPINES SCREEN URINE NEGATIVE (NEGATIVE); *COCAINE SCREEN URINE NEGATIVE (NEGATIVE); METHADONE URINE SCREEN NEGATIVE (NEGATIVE); OPIATES URINE SCREEN PRESUMTIVE POSITIVE (NEGATIVE)
[2018-05-16 03:03] LABS: CANNABINOID URINE SCREEN PRESUMTIVE POSITIVE (NEGATIVE); PHENCYCLIDINE URINE SCREEN NEGATIVE (NEGATIVE)
[2018-05-16 04:00] VITALS: BP 104/70
[2018-05-16] MEDS: NITROGLYCERIN OINT 1GM/INCH UDPKT TD SCH ×3 (05:46→20:52)
[2018-05-16 06:38] LABS: BASOPHILS % 0.6 % (0.0-2.0); EOSINOPHILS % 1.7 % (0.0-5.0); HEMATOCRIT. 40.9 % (42.0-52.0); HEMOGLOBIN. 13.7 g/dL (14.0-18.0); LYMPHOCYTES % 32.7 % (20.0-50.0); MEAN CORPUSCULAR HEMOGLOBIN 31.7 pg (28.0-32.0); MEAN CORPUSCULAR VOLUME 94.7 fL (80.0-94.0); MEAN PLATELET VOLUME 9.3 fl (7.4-10.4); MONOCYTES % 13.8 % (2.0-8.0); NEUTROPHILS % 51.2 % (40.0-76.0); PLATELET 206 x1000/uL (130-400); RED BLOOD CELL COUNT 4.32 mill/uL (4.7-6.1); RED CELL DISTRIBUTION WIDTH 17.5 % (11.6-14.6)
[2018-05-16 06:46] LABS: CHLORIDE 107 mEq/L (98-107)
[2018-05-16 07:07] LABS: LDL CHOLESTEROL 69 mg/dL (5-100)
[2018-05-16 07:08] LABS: CREATINE KINASE 84 IU/L (39-308)
[2018-05-16 07:09] LABS: CREATINE KINASE MB FRACTION < 1.0 ng/mL (0.5-3.6); HDL CHOLESTEROL 43 mg/dL (40-59)
[2018-05-16 08:00] VITALS: BP 127/78
[2018-05-16] MEDS: CLOPIDOGREL 75MG TABLET PO SCH (08:31)
[2018-05-16] MEDS: LEVETIRACETAM 500MG/5ML CUP PO SCH ×2 (08:31→20:50)
[2018-05-16] MEDS: FOLIC ACID/VITAMIN B COMP W-C TABLET PO SCH (08:31)
[2018-05-16] MEDS: ASPIRIN 325MG EC TABLET PO SCH (08:31)
[2018-05-16] MEDS: METOPROLOL TARTRATE 50MG TABLET PO SCH ×2 (09:37→20:51)
[2018-05-16] MEDS: DILTIAZEM HCL 30MG TABLET PO SCH ×2 (09:37→20:51)
[2018-05-16] MEDS: AMLODIPINE 2.5MG TABLET PO SCH ×2 (09:37→20:51)
[2018-05-16 12:01] VITALS: BP 115/77
[2018-05-16 15:33] VITALS: BP 122/74
[2018-05-16] MEDS ORDERED: ENOXAPARIN 100MG/ML SYR SUBCUT NR (15:45)
[2018-05-16] MEDS ORDERED: ENOXAPARIN 100MG/ML SYR SUBCUT SCH (18:00)
[2018-05-16 20:00] VITALS: BP 126/80
[2018-05-16] MEDS: ATORVASTATIN CALCIUM 40MG TABLET PO SCH (20:50)
[2018-05-16] MEDS: ENOXAPARIN 100MG/ML SYR SUBCUT SCH (20:50)
[2018-05-16] MEDS: FAMOTIDINE 20MG TABLET PO SCH (20:51)
[2018-05-17] VITALS: BP 103/57
[2018-05-17] MEDS: ONDANSETRON HCL 4MG/2ML INJ IV PRN ×4 (03:12→20:56)
[2018-05-17] MEDS: HYDROMORPHONE HCL/PF 2MG/ML CPJ IV PRN ×5 (03:12→21:03)
[2018-05-17 04:00] VITALS: BP 107/73
[2018-05-17] MEDS ORDERED: ENOXAPARIN 100MG/ML SYR SUBCUT SCH (05:00)
[2018-05-17] MEDS: NITROGLYCERIN OINT 1GM/INCH UDPKT TD SCH (06:25)
[2018-05-17 08:00] VITALS: BP 102/58
[2018-05-17] MEDS: FOLIC ACID/VITAMIN B COMP W-C TABLET PO SCH (08:30)
[2018-05-17] MEDS: ASPIRIN 325MG EC TABLET PO SCH (08:30)
[2018-05-17] MEDS: CLOPIDOGREL 75MG TABLET PO SCH (08:30)
[2018-05-17] MEDS: LEVETIRACETAM 500MG/5ML CUP PO SCH ×2 (08:30→20:54)
[2018-05-17] MEDS: ENOXAPARIN 100MG/ML SYR SUBCUT SCH ×2 (08:32→20:56)
[2018-05-17] MEDS: DILTIAZEM HCL 30MG TABLET PO SCH ×2 (08:34→20:57)
[2018-05-17] MEDS: METOPROLOL TARTRATE 50MG TABLET PO SCH ×2 (08:34→20:57)
[2018-05-17] MEDS: AMLODIPINE 2.5MG TABLET PO SCH ×2 (08:35→20:56)
[2018-05-17 12:00] VITALS: BP 124/81
[2018-05-17] MEDS ORDERED: BISACODYL 10MG SUPP PR PRN (13:45)
[2018-05-17] MEDS ORDERED: METOCLOPRAMIDE HCL 10MG/2ML VIAL IV PRN (13:45)
[2018-05-17 16:00] VITALS: BP 121/84
[2018-05-17 20:00] VITALS: BP 115/66
[2018-05-17] MEDS: ATORVASTATIN CALCIUM 40MG TABLET PO SCH (20:56)
[2018-05-17] MEDS: FAMOTIDINE 20MG TABLET PO SCH (20:56)
[2018-05-17] MEDS ORDERED: LACTULOSE 20G/30ML UDC PO PRN (21:00)
[2018-05-18] VITALS (13 sets, daily range): BP systolic 95–127; BP diastolic 49–73
[2018-05-18] MEDS: HYDROMORPHONE HCL/PF 2MG/ML CPJ IV PRN ×3 (01:38→11:22)
[2018-05-18] MEDS ORDERED: SODIUM CHLORIDE 0.45% 1,000 ML IV SCH (06:00)
[2018-05-18] MEDS: ONDANSETRON HCL 4MG/2ML INJ IV PRN (06:31)
[2018-05-18 07:30] LABS: BASOPHILS % 1.1 % (0.0-2.0); EOSINOPHILS % 1.9 % (0.0-5.0); HEMATOCRIT. 42.7 % (42.0-52.0); HEMOGLOBIN. 14.1 g/dL (14.0-18.0); LYMPHOCYTES % 37.5 % (20.0-50.0); MEAN CORPUSCULAR HEMOGLOBIN 31.6 pg (28.0-32.0); MEAN CORPUSCULAR VOLUME 95.4 fL (80.0-94.0); MEAN PLATELET VOLUME 9.7 fl (7.4-10.4); MONOCYTES % 9.9 % (2.0-8.0); NEUTROPHILS % 49.6 % (40.0-76.0); PLATELET 216 x1000/uL (130-400); RED BLOOD CELL COUNT 4.48 mill/uL (4.7-6.1); RED CELL DISTRIBUTION WIDTH 17.4 % (11.6-14.6)
[2018-05-18 07:48] LABS: CHLORIDE 108 mEq/L (98-107)
[2018-05-18] MEDS: FOLIC ACID/VITAMIN B COMP W-C TABLET PO SCH (09:00)
[2018-05-18] MEDS: METOPROLOL TARTRATE 50MG TABLET PO SCH (09:00)
[2018-05-18] MEDS: CLOPIDOGREL 75MG TABLET PO SCH (09:00)
[2018-05-18] MEDS: AMLODIPINE 2.5MG TABLET PO SCH (09:00)
[2018-05-18] MEDS: LEVETIRACETAM 500MG/5ML CUP PO SCH (09:00)
[2018-05-18] MEDS: DILTIAZEM HCL 30MG TABLET PO SCH (09:00)
[2018-05-18] MEDS ORDERED: LIDOCAINE HCL/PF 1% 10 MG/ML 5ML VIAL ONE (09:07)
[2018-05-18] MEDS ORDERED: IODIXANOL 320MG/ML 100 ML BOTTLE IV ONE (09:07)
[2018-05-18] MEDS: ASPIRIN 325MG EC TABLET PO SCH (09:14)
[2018-05-18] MEDS ORDERED: MIDAZOLAM HCL 2 MG/2 ML VIAL ONE (09:53)
[2018-05-18] MEDS ORDERED: FENTANYL CITRATE/PF 50MCG/ML 2ML VIAL ONE (09:53)
[2018-05-18] MEDS ORDERED: DIPHENHYDRAMINE 50MG/ML VIAL ONE (09:54)
[2018-05-18] MEDS ORDERED: ONDANSETRON HCL 4MG/2ML INJ IV PRN (10:30)
[2018-05-18] MEDS ORDERED: ACETAMINOPHEN 325MG TABLET PO PRN (10:30)
[2018-05-18] MEDS ORDERED: MORPHINE SULFATE 10 MG/ML CPJ IV PRN (10:30)
[2018-05-18] MEDS ORDERED: ATROPINE SULFATE 1MG/10ML SYR IV PRN (10:30)
[2018-05-18] MEDS ORDERED: SODIUM CHLORIDE 0.45% 1,000 ML IV ONE (11:00)
[2018-05-18] MEDS ORDERED: ISOSORBIDE MONONITRATE 30MG TABLET SR 24HR PO SCH (11:00)
[2018-05-18] MEDS ORDERED: HEPARIN SODIUM 1,000 UNIT/1ML VIAL IV ONE (14:54)
[2018-05-18] MEDS ORDERED: NITROGLYCERIN 50MCG/ML 10ML VIAL (CATH LAB) IV ONE (16:16)
[2018-05-18] MEDS ORDERED: NICARDIPINE 100MCG/ML 10ML VIAL (CATH LAB) IV ONE (16:16)
[2018-05-18] MEDS ORDERED: RANOLAZINE 500 MG TAB.SR.12H PO SCH (21:00)
== END 2018-05-18 18:10 | disposition home or self-care (01) | DRG 191 ==
LOC: EDBEDREQ 18:20 → ER 20:38 → 5WST 21:44 → EDBEDREQ 21:52 → EDBEDREQTM 21:52 → ENRESERV 22:47 → 3WST 05-18 10:52
PROVIDERS: ADMIT Internal Medicine; ATTEND Internal Medicine
PROC: 4A023N7 Measurement of Cardiac Sampling and Pressure, Left Heart, Percutaneous Approach (ICD-10-PCS; principal; 2018-05-18)
PROC: B2111ZZ Fluoroscopy of Multiple Coronary Arteries using Low Osmolar Contrast (ICD-10-PCS; 2018-05-18)
PROC: B2151ZZ Fluoroscopy of Left Heart using Low Osmolar Contrast (ICD-10-PCS; 2018-05-18)
DX: I25.10 Atherosclerotic heart disease of native coronary artery without angina pectoris (principal); I11.0 Hypertensive heart disease with heart failure; E87.1 Hypo-osmolality and hyponatremia; I25.82 Chronic total occlusion of coronary artery; I50.9 Heart failure, unspecified; E78.00 Pure hypercholesterolemia, unspecified; E87.6 Hypokalemia; I25.5 Ischemic cardiomyopathy; E78.5 Hyperlipidemia, unspecified; F12.90 Cannabis use, unspecified, uncomplicated; F17.200 Nicotine dependence, unspecified, uncomplicated; G40.909 Epilepsy, unspecified, not intractable, without status epilepticus; F10.10 Alcohol abuse, uncomplicated; J45.909 Unspecified asthma, uncomplicated; Z79.01 Long term (current) use of anticoagulants; Z82.49 Family history of ischemic heart disease and other diseases of the circulatory system; I25.2 Old myocardial infarction; Z91.14 Patient's other noncompliance with medication regimen; Z91.19 Patient's noncompliance with other medical treatment and regimen; Z95.5 Presence of coronary angioplasty implant and graft; Z88.1 Allergy status to other antibiotic agents; Z88.8 Allergy status to other drugs, medicaments and biological substances; Z79.82 Long term (current) use of aspirin; Z79.1 Long term (current) use of non-steroidal anti-inflammatories (NSAID); Z79.899 Other long term (current) drug therapy
CPT/HCPCS: 36415; 71045; 80061; 80305; 82550; 82553; 83735; 83880; 84443; 84484; 85027; 85379; 93005; 93458; 93970; 96374; 99285; C1769; C1887; C1893; J1170; J1200; J1644; J1650; J1940; J2250; J2270; J2405; J2765; J3010; J3490; Q9967

== ENCOUNTER 2018-06-21 20:42 | Emergency (ER) | payer MEDICAID ==
[~2018-06-21] VITALS: Ht 175.3 cm; Wt 92.2 kg
[~2018-06-21 20:42] MED LIST changes: -DILT30TA38 PO; -LACT10SO7 PO; -NEPVIT PO
[2018-06-21] MEDS ORDERED: KETOROLAC 60MG/2ML VIAL IM STA (23:21)
[2018-06-22 00:03] LABS: BASOPHILS % 0.9 % (0.0-2.0); EOSINOPHILS % 0.6 % (0.0-5.0); HEMATOCRIT. 42.3 % (42.0-52.0); HEMOGLOBIN. 14.2 g/dL (14.0-18.0); LYMPHOCYTES % 38.6 % (20.0-50.0); MEAN CORPUSCULAR HEMOGLOBIN 31.6 pg (28.0-32.0); MEAN CORPUSCULAR VOLUME 94.2 fL (80.0-94.0); MEAN PLATELET VOLUME 8.9 fl (7.4-10.4); NEUTROPHILS % 52.9 % (40.0-76.0); PLATELET 245 x1000/uL (130-400); RED BLOOD CELL COUNT 4.49 mill/uL (4.7-6.1); RED CELL DISTRIBUTION WIDTH 16.8 % (11.6-14.6)
[2018-06-22 00:08] LABS: CHLORIDE 112 mEq/L (98-107)
[2018-06-22 04:01] VITALS: BP 108/59
== END 2018-06-22 04:05 | disposition home or self-care (01) ==
LOC: ER 20:42
DX: R07.89 Other chest pain (principal); I11.0 Hypertensive heart disease with heart failure; E11.9 Type 2 diabetes mellitus without complications; E78.00 Pure hypercholesterolemia, unspecified; G40.909 Epilepsy, unspecified, not intractable, without status epilepticus; I25.2 Old myocardial infarction; J45.909 Unspecified asthma, uncomplicated; I50.9 Heart failure, unspecified; F12.10 Cannabis abuse, uncomplicated; R00.0 Tachycardia, unspecified; Z95.5 Presence of coronary angioplasty implant and graft; Z88.8 Allergy status to other drugs, medicaments and biological substances; Z88.1 Allergy status to other antibiotic agents; Z91.018 Allergy to other foods; Z79.82 Long term (current) use of aspirin; F17.210 Nicotine dependence, cigarettes, uncomplicated
CPT/HCPCS: 36415; 71045; 80053; 83690; 84484; 85025; 93005; 96372; 99284; J1885

== ENCOUNTER 2018-08-12 22:57 | Emergency (ER) | payer MEDICAID ==
[~2018-08-12] VITALS: Ht 175.3 cm; Wt 98.0 kg
[2018-08-13] MEDS ORDERED: ASPIRIN 81MG TABLET PO ONE (01:45)
[2018-08-13] MEDS ORDERED: ONDANSETRON 4MG ODT PO ONE (01:45)
[2018-08-13 01:50] LABS: BASOPHILS % 0.5 % (0.0-2.0); EOSINOPHILS % 0.4 % (0.0-5.0); HEMATOCRIT. 44.2 % (42.0-52.0); HEMOGLOBIN. 14.7 g/dL (14.0-18.0); LYMPHOCYTES % 25.1 % (20.0-50.0); MEAN CORPUSCULAR HEMOGLOBIN 31.5 pg (28.0-32.0); MEAN CORPUSCULAR VOLUME 94.9 fL (80.0-94.0); MEAN PLATELET VOLUME 8.8 fl (7.4-10.4); MONOCYTES % 7.3 % (2.0-8.0); NEUTROPHILS % 66.7 % (40.0-76.0); PLATELET 232 x1000/uL (130-400); RED BLOOD CELL COUNT 4.66 mill/uL (4.7-6.1); RED CELL DISTRIBUTION WIDTH 16.4 % (11.6-14.6)
[2018-08-13 01:54] LABS: CHLORIDE 112 mEq/L (98-107)
[2018-08-13 01:57] LABS: PARTIAL THROMBOPLASTIN TIME 27.1 sec (23.4-31.0)
[2018-08-13 01:58] LABS: ETHANOL BLOOD 293 mg/dL
[2018-08-13 07:30] VITALS: BP 96/49
== END 2018-08-13 08:06 | disposition left against medical advice (07) ==
LOC: ER 22:57
DX: R07.89 Other chest pain (principal); F10.229 Alcohol dependence with intoxication, unspecified; I11.0 Hypertensive heart disease with heart failure; I50.9 Heart failure, unspecified; I25.10 Atherosclerotic heart disease of native coronary artery without angina pectoris; F12.10 Cannabis abuse, uncomplicated; F17.210 Nicotine dependence, cigarettes, uncomplicated; Y90.8 Blood alcohol level of 240 mg/100 ml or more; Z98.61 Coronary angioplasty status; Z91.018 Allergy to other foods; Z88.8 Allergy status to other drugs, medicaments and biological substances
CPT/HCPCS: 36415; 71045; 80053; 80320; 83690; 83880; 84484; 85025; 85610; 85730; 93005; 99284; Q0162; G0480

== ENCOUNTER 2018-09-06 22:12 | Inpatient (IN) | payer MEDICAID ==
[~2018-09-06] VITALS: Ht 175.3 cm; Wt 95.3 kg
[2018-09-07] MEDS ORDERED: ONDANSETRON HCL 4MG/2ML INJ IV STA (02:54)
[2018-09-07] MEDS ORDERED: MORPHINE SULFATE 4 MG/ML CPJ (NOT FOR IM USE) IV STA (02:54)
[2018-09-07] MEDS ORDERED: NITROGLYCERIN OINT 1GM/INCH UDPKT TD ONE (03:00)
[2018-09-07 03:13] LABS: BASOPHILS % 0.7 % (0.0-2.0); EOSINOPHILS % 0.7 % (0.0-5.0); HEMATOCRIT. 42.5 % (42.0-52.0); HEMOGLOBIN. 14.2 g/dL (14.0-18.0); MEAN CORPUSCULAR HEMOGLOBIN 31.8 pg (28.0-32.0); MEAN CORPUSCULAR VOLUME 95.1 fL (80.0-94.0); MEAN PLATELET VOLUME 8.7 fl (7.4-10.4); MONOCYTES % 10.2 % (2.0-8.0); NEUTROPHILS % 59.4 % (40.0-76.0); PLATELET 242 x1000/uL (130-400); RED BLOOD CELL COUNT 4.46 mill/uL (4.7-6.1); RED CELL DISTRIBUTION WIDTH 16.9 % (11.6-14.6)
[2018-09-07 03:18] LABS: CHLORIDE 114 mEq/L (98-107)
[2018-09-07] MEDS ORDERED: CLONIDINE 0.1MG TABLET PO PRN (08:45)
[2018-09-07] MEDS ORDERED: DOCUSATE SODIUM 100MG CAPSULE PO PRN (08:45)
[2018-09-07] MEDS ORDERED: HYDROCODONE/ACETAMINOPHEN 5/325MG TABLET PO PRN (08:45)
[2018-09-07] MEDS ORDERED: ACETAMINOPHEN 325MG TABLET PO PRN (08:45)
[2018-09-07] MEDS ORDERED: DIPHENHYDRAMINE 50MG/ML VIAL IV PRN (08:45)
[2018-09-07] MEDS ORDERED: MAGNESIUM/ALUMINUM HYDROXIDE/SIMETHICONE 30ML UDC PO PRN (08:45)
[2018-09-07] MEDS ORDERED: GUAIFENESIN 200MG/10ML SUGAR FREE UDC PO PRN (08:45)
[2018-09-07] MEDS ORDERED: IPRATROPIUM/ALBUTEROL 0.5-3(2.5)MG/3ML NEB INH PRN (08:45)
[2018-09-07 09:15] VITALS: BP 126/78
[2018-09-07 09:23] LABS: PHOSPHORUS 3.3 mg/dL (2.5-4.9)
[2018-09-07] MEDS ORDERED: ENOXAPARIN 30MG/0.3ML SYR SUBCUT SCH (10:00)
[2018-09-07] MEDS: AMLODIPINE 2.5MG TABLET PO SCH ×2 (11:15→16:21)
[2018-09-07] MEDS ORDERED: PANT40TA4 MT (11:36)
[2018-09-07] MEDS ORDERED: RIVA20TA MT (11:36)
[2018-09-07] MEDS ORDERED: FURO20TA4 MT (11:36)
[2018-09-07] MEDS ORDERED: RANO500T3 MT (11:36)
[2018-09-07] MEDS ORDERED: CLON-457 MT (11:36)
[2018-09-07] MEDS ORDERED: NICO-645 TP (11:36)
[2018-09-07] MEDS ORDERED: NITR0.4T49 SL (11:36)
[2018-09-07 11:50] VITALS: BP 115/75
[2018-09-07] MEDS: LEVETIRACETAM 500MG TABLET PO SCH ×2 (11:50→20:24)
[2018-09-07] MEDS: CLOPIDOGREL 75MG TABLET PO SCH (11:50)
[2018-09-07] MEDS: ASPIRIN 81MG EC TABLET PO SCH (11:50)
[2018-09-07] MEDS: MORPHINE SULFATE 4 MG/ML CPJ (NOT FOR IM USE) IV PRN ×4 (11:51→23:40)
[2018-09-07] MEDS: ONDANSETRON HCL 4MG/2ML INJ IV PRN ×2 (12:00→20:24)
[2018-09-07 12:01] VITALS: BP 115/75
[2018-09-07 16:00] VITALS: BP 111/63
[2018-09-07] MEDS ORDERED: RIVAROXABAN 10 MG TABLET PO SCH (17:00)
[2018-09-07 18:03] LABS: CREATINE KINASE 211 IU/L (39-308)
[2018-09-07 18:04] LABS: CREATINE KINASE MB FRACTION 1.5 ng/mL (0.5-3.6)
[2018-09-07 18:22] LABS: HEPATITIS B SURFACE ANTIGEN NEGATIVE
[2018-09-07 19:44] LABS: CLARITY URINE CLEAR (CLEAR); COLOR URINE YELLOW (YELLOW); KETONES URINE TRACE (NEGATIVE); LEUKOCYTE ESTERASE URINE NEGATIVE (NEGATIVE); NITRITE URINE NEGATIVE (NEGATIVE); OCCULT BLOOD URINE NEGATIVE (NEGATIVE); PH URINE 6.5 (4.5-8.0); PROTEIN URINE NEGATIVE (NEGATIVE); SPECIFIC GRAVITY URINE 1.027 (1.005-1.030)
[2018-09-07 19:51] LABS: HEPATITIS A AB IGM Equiv (NEGATIVE)
[2018-09-07 20:00] VITALS: BP 117/76
[2018-09-07 20:11] LABS: *AMPHETAMINES SCREEN URINE NEGATIVE (NEGATIVE); *BARBITURATES SCREEN URINE NEGATIVE (NEGATIVE); *BENZODIAZEPINES SCREEN URINE NEGATIVE (NEGATIVE); *COCAINE SCREEN URINE NEGATIVE (NEGATIVE); METHADONE URINE SCREEN NEGATIVE (NEGATIVE)
[2018-09-07 20:12] LABS: CANNABINOID URINE SCREEN PRESUMTIVE POSITIVE (NEGATIVE); OPIATES URINE SCREEN PRESUMTIVE POSITIVE (NEGATIVE); PHENCYCLIDINE URINE SCREEN NEGATIVE (NEGATIVE)
[2018-09-07] MEDS: METOPROLOL TARTRATE 25MG TABLET PO SCH (20:24)
[2018-09-08] VITALS: BP 122/79
[2018-09-08 04:00] VITALS: BP 110/73
[2018-09-08] MEDS: ONDANSETRON HCL 4MG/2ML INJ IV PRN (04:06)
[2018-09-08] MEDS: MORPHINE SULFATE 4 MG/ML CPJ (NOT FOR IM USE) IV PRN ×3 (04:06→12:11)
[2018-09-08 06:10] LABS: BASOPHILS % 0.7 % (0.0-2.0); EOSINOPHILS % 1.5 % (0.0-5.0); HEMOGLOBIN. 13.7 g/dL (14.0-18.0); LYMPHOCYTES % 36.3 % (20.0-50.0); MEAN CORPUSCULAR HEMOGLOBIN 31.9 pg (28.0-32.0); MEAN CORPUSCULAR VOLUME 95.1 fL (80.0-94.0); MEAN PLATELET VOLUME 8.7 fl (7.4-10.4); MONOCYTES % 11.9 % (2.0-8.0); NEUTROPHILS % 49.6 % (40.0-76.0); PLATELET 243 x1000/uL (130-400); RED BLOOD CELL COUNT 4.31 mill/uL (4.7-6.1); RED CELL DISTRIBUTION WIDTH 16.4 % (11.6-14.6)
[2018-09-08 08:00] VITALS: BP 110/64
[2018-09-08] MEDS: ASPIRIN 81MG EC TABLET PO SCH (08:11)
[2018-09-08] MEDS: AMLODIPINE 2.5MG TABLET PO SCH (08:11)
[2018-09-08] MEDS: CLOPIDOGREL 75MG TABLET PO SCH (08:11)
[2018-09-08] MEDS: METOPROLOL TARTRATE 25MG TABLET PO SCH (08:12)
[2018-09-08] MEDS: LEVETIRACETAM 500MG TABLET PO SCH (08:12)
[2018-09-08 08:27] LABS: CHLORIDE 112 mEq/L (98-107)
[2018-09-08 08:57] LABS: LDL CHOLESTEROL 69 mg/dL (5-100)
[2018-09-08 08:59] LABS: HDL CHOLESTEROL 42 mg/dL (40-59)
[2018-09-08 12:00] VITALS: BP 110/57
[2018-09-08] MEDS ORDERED: FUROSEMIDE 20MG TABLET PO SCH (12:00)
[2018-09-08 16:00] VITALS: BP 108/62
[2018-09-08 16:06] VITALS: BP 110/57
[2018-09-08] MEDS ORDERED: RANOLAZINE 500 MG TAB.SR.12H PO SCH (21:00)
[2018-09-08] MEDS ORDERED: FAMOTIDINE 20MG TABLET PO SCH (21:00)
[2018-09-08] MEDS ORDERED: ATORVASTATIN CALCIUM 40MG TABLET PO SCH (21:00)
[2018-09-09 04:13] LABS: HIV SCREEN 4G Non Reactive (Non Reactive)
== END 2018-09-08 16:50 | disposition home or self-care (01) | DRG 198 ==
LOC: ER 22:12 → 8WST 09-07 05:41 → EDBEDREQTM 09-07 05:44 → EDBEDREQ 09-07 05:44 → ENRESERV 09-07 08:05 → 8WST 09-07 09:56
PROVIDERS: ADMIT Internal Medicine; ATTEND Internal Medicine
DX: R07.89 Other chest pain (principal); I25.10 Atherosclerotic heart disease of native coronary artery without angina pectoris; I11.0 Hypertensive heart disease with heart failure; I50.20 Unspecified systolic (congestive) heart failure; E83.51 Hypocalcemia; E78.00 Pure hypercholesterolemia, unspecified; G40.909 Epilepsy, unspecified, not intractable, without status epilepticus; E78.5 Hyperlipidemia, unspecified; E83.52 Hypercalcemia; F12.90 Cannabis use, unspecified, uncomplicated; F17.210 Nicotine dependence, cigarettes, uncomplicated; J45.909 Unspecified asthma, uncomplicated; Z79.01 Long term (current) use of anticoagulants; Z82.49 Family history of ischemic heart disease and other diseases of the circulatory system; Z95.5 Presence of coronary angioplasty implant and graft; Z79.899 Other long term (current) drug therapy; Z79.82 Long term (current) use of aspirin; Z88.8 Allergy status to other drugs, medicaments and biological substances; Z87.81 Personal history of (healed) traumatic fracture
CPT/HCPCS: 36415; 71045; 80048; 80061; 80305; 82550; 82553; 83735; 83880; 84100; 84443; 84484; 85379; 86705; 86709; 86803; 87340; 87389; 93005; 93306; 93970; 96374; 96375; 97162; 97165; 99285; J1650; J2270; J2405

== ENCOUNTER 2018-09-24 23:19 | Emergency (ER) | payer MEDICAID ==
[~2018-09-24] VITALS: Ht 175.3 cm; Wt 93.0 kg
[~2018-09-24 23:19] MED LIST changes: +CLON-457 MT; +FURO20TA4 MT; +NICO-645 TP; +NITR0.4T49 SL; +PANT40TA4 MT; +RANO500T3 MT
[2018-09-25 01:08] LABS: BASOPHILS % 0.4 % (0.0-2.0); EOSINOPHILS % 0.4 % (0.0-5.0); HEMATOCRIT. 42.1 % (42.0-52.0); HEMOGLOBIN. 14.1 g/dL (14.0-18.0); LYMPHOCYTES % 24.7 % (20.0-50.0); MEAN CORPUSCULAR HEMOGLOBIN 32.1 pg (28.0-32.0); MEAN CORPUSCULAR VOLUME 95.6 fL (80.0-94.0); MEAN PLATELET VOLUME 9.5 fl (7.4-10.4); MONOCYTES % 9.4 % (2.0-8.0); NEUTROPHILS % 65.1 % (40.0-76.0); PLATELET 222 x1000/uL (130-400); RED CELL DISTRIBUTION WIDTH 16.3 % (11.6-14.6)
[2018-09-25 01:11] LABS: CHLORIDE 108 mEq/L (98-107)
[2018-09-25] MEDS ORDERED: LEVETIRACETAM 100MG/ML ORAL SYR PO ONE (04:15)
[2018-09-25] MEDS ORDERED: LEVETIRACETAM 500MG TABLET PO SCH (04:30)
[2018-09-25 05:35] VITALS: BP 97/56
== END 2018-09-25 06:00 | disposition home or self-care (01) ==
LOC: ER 23:19
DX: R07.89 Other chest pain (principal); J44.9 Chronic obstructive pulmonary disease, unspecified; R56.9 Unspecified convulsions; I50.9 Heart failure, unspecified; I25.10 Atherosclerotic heart disease of native coronary artery without angina pectoris; F12.10 Cannabis abuse, uncomplicated; F17.200 Nicotine dependence, unspecified, uncomplicated; Z95.5 Presence of coronary angioplasty implant and graft; Z79.899 Other long term (current) drug therapy; Z88.0 Allergy status to penicillin; Z88.8 Allergy status to other drugs, medicaments and biological substances
CPT/HCPCS: 36415; 71045; 83880; 84484; 93005; 99284

== ENCOUNTER 2018-10-16 22:17 | Emergency (ER) | payer MEDICAID ==
[~2018-10-16] VITALS: Ht 175.3 cm; Wt 96.0 kg
[2018-10-16 22:18] VITALS: BP 139/83
== END 2018-10-17 01:16 | disposition left against medical advice (07) ==
LOC: ER 22:17
DX: Z53.21 Procedure and treatment not carried out due to patient leaving prior to being seen by health care provider (principal)
CPT/HCPCS: 93005

== ENCOUNTER 2018-10-23 06:09 | Emergency (ER) | payer MEDICAID ==
[~2018-10-23] VITALS: Ht 175.3 cm; Wt 91.0 kg
[~2018-10-23 06:09] MED LIST changes: -ASPI-1159 PO; +ASPI-1393 PO; -CLOP75TA16 PO; +CLOP75TA4 PO
[2018-10-23] MEDS ORDERED: NITROGLYCERIN 0.4MG TABLET SL SL PRN (07:15)
[2018-10-23] MEDS ORDERED: ASPIRIN 81MG TABLET PO ONE (07:15)
[2018-10-23 07:27] LABS: BASOPHILS % 0.6 % (0.0-2.0); EOSINOPHILS % 0.2 % (0.0-5.0); HEMATOCRIT. 42.6 % (42.0-52.0); HEMOGLOBIN. 14.2 g/dL (14.0-18.0); LYMPHOCYTES % 16.8 % (20.0-50.0); MEAN CORPUSCULAR HEMOGLOBIN 32.2 pg (28.0-32.0); MEAN CORPUSCULAR VOLUME 96.2 fL (80.0-94.0); MEAN PLATELET VOLUME 8.9 fl (7.4-10.4); MONOCYTES % 6.6 % (2.0-8.0); NEUTROPHILS % 75.8 % (40.0-76.0); PLATELET 192 x1000/uL (130-400); RED BLOOD CELL COUNT 4.42 mill/uL (4.7-6.1); RED CELL DISTRIBUTION WIDTH 16.7 % (11.6-14.6)
[2018-10-23 07:34] LABS: CHLORIDE 111 mEq/L (98-107)
[2018-10-23 07:35] LABS: PROTHROMBIN TIME 10.4 sec (9.6-11.0)
[2018-10-23 07:38] LABS: ETHANOL BLOOD 157 mg/dL
[2018-10-23] MEDS ORDERED: ONDANSETRON HCL 4MG/2ML INJ IV ONE (08:00)
[2018-10-23] MEDS ORDERED: KETOROLAC 15MG/ML VIAL IV ONE (08:00)
[2018-10-23 08:30] VITALS: BP 117/75
[2018-10-23] MEDS ORDERED: ACETAMINOPHEN WITH CODEINE 300/30MG TABLET PO ONE (08:45)
== END 2018-10-23 08:51 | disposition left against medical advice (07) ==
LOC: ER 06:09
DX: R07.89 Other chest pain (principal); J45.909 Unspecified asthma, uncomplicated; E78.00 Pure hypercholesterolemia, unspecified; I10 Essential (primary) hypertension; F12.10 Cannabis abuse, uncomplicated; F17.200 Nicotine dependence, unspecified, uncomplicated; Z79.899 Other long term (current) drug therapy; Z88.8 Allergy status to other drugs, medicaments and biological substances; Z91.018 Allergy to other foods
CPT/HCPCS: 36415; 71045; 80053; 80320; 83880; 84484; 85025; 85610; 93005; 96374; 96375; 99284; J1885; J2405; Z7610; G0480

== ENCOUNTER 2019-01-15 02:17 | Emergency (ER) | payer MEDICAID ==
[~2019-01-15] VITALS: Ht 175.3 cm; Wt 91.0 kg
[~2019-01-15 02:17] MED LIST changes: -AMLO2.5T45 PO; +ATOR80TA PO; -FAMO20TA8 PO; -HYDR-4009 MT; -LEVE1000 MT; +LEVE1000 PO; -LIP40 PO; +MECL-109 PO; +METO-385 PO; -METO-396 MT; -PANT40TA4 MT; +RIVA20TA PO
[2019-01-15] MEDS ORDERED: NITROGLYCERIN OINT 1GM/INCH UDPKT TD ONE (03:00)
[2019-01-15 04:00] LABS: CHLORIDE 116 mEq/L (98-107)
[2019-01-15 04:04] LABS: ETHANOL BLOOD 204 mg/dL
[2019-01-15 04:10] LABS: BASOPHILS % 1.1 % (0.0-2.0); HEMATOCRIT. 40.6 % (42.0-52.0); HEMOGLOBIN. 13.9 g/dL (14.0-18.0); LYMPHOCYTES % 34.3 % (20.0-50.0); MEAN CORPUSCULAR HEMOGLOBIN 32.5 pg (28.0-32.0); MEAN CORPUSCULAR VOLUME 94.9 fL (80.0-94.0); MEAN PLATELET VOLUME 9.3 fl (7.4-10.4); MONOCYTES % 7.6 % (2.0-8.0); PLATELET 200 x1000/uL (130-400); RED BLOOD CELL COUNT 4.28 mill/uL (4.7-6.1); RED CELL DISTRIBUTION WIDTH 16.1 % (11.6-14.6)
[2019-01-15] MEDS ORDERED: CLONIDINE 0.1MG TABLET PO PRN (06:15)
[2019-01-15] MEDS ORDERED: HYDROCODONE/ACETAMINOPHEN 5/325MG TABLET PO PRN (06:15)
[2019-01-15] MEDS ORDERED: ONDANSETRON HCL 4MG/2ML INJ IV PRN (06:15)
[2019-01-15] MEDS ORDERED: MAGNESIUM/ALUMINUM HYDROXIDE/SIMETHICONE 30ML UDC PO PRN (06:15)
[2019-01-15] MEDS ORDERED: ACETAMINOPHEN 325MG TABLET PO PRN (06:15)
[2019-01-15] MEDS ORDERED: MORPHINE SULFATE 2 MG/ML CPJ (NOT FOR IM USE) IV PRN (06:15)
[2019-01-15] MEDS ORDERED: GUAIFENESIN 200MG/10ML SUGAR FREE UDC PO PRN (06:15)
[2019-01-15 07:37] VITALS: BP 101/70
[2019-01-15] MEDS ORDERED: AMLODIPINE 10MG TABLET PO SCH (09:00)
[2019-01-15] MEDS ORDERED: RIVAROXABAN 10 MG TABLET PO SCH (17:00)
[2019-01-16] MEDS ORDERED: ALBU6.7H9 INH (01:20)
[2019-01-16] MEDS ORDERED: PANT40SU PO (01:20)
== END 2019-01-15 08:08 | disposition left against medical advice (07) ==
LOC: ER 02:17 → EDBEDREQ 04:57 → EDBEDREQTM 04:57 → SUPCPDRO 06:07 → ENRESERV 07:46 → CANRESERV 07:46 → CANBEDREQ 07:58 → ER 08:08
DX: R07.89 Other chest pain (principal); R06.02 Shortness of breath; R11.2 Nausea with vomiting, unspecified; F10.129 Alcohol abuse with intoxication, unspecified; Y90.7 Blood alcohol level of 200-239 mg/100 ml; J45.909 Unspecified asthma, uncomplicated; E78.00 Pure hypercholesterolemia, unspecified; I10 Essential (primary) hypertension; F17.200 Nicotine dependence, unspecified, uncomplicated; F12.10 Cannabis abuse, uncomplicated; Z98.890 Other specified postprocedural states; Z79.82 Long term (current) use of aspirin; Z79.899 Other long term (current) drug therapy; Z88.8 Allergy status to other drugs, medicaments and biological substances
CPT/HCPCS: 36415; 71045; 80320; 83880; 84484; 93005; 99284; G0480

== ENCOUNTER 2019-01-15 18:11 | Inpatient (IN) | payer MEDICAID ==
[~2019-01-15] VITALS: Ht 175.3 cm; Wt 95.3 kg
[2019-01-15] MEDS ORDERED: ASPIRIN 81MG TABLET PO ONE (20:45)
[2019-01-15] MEDS ORDERED: ACETAMINOPHEN 325MG TABLET PO ONE (20:45)
[2019-01-15] MEDS ORDERED: ONDANSETRON HCL 4MG/2ML INJ IV ONE (21:30)
[2019-01-15] MEDS ORDERED: MORPHINE SULFATE 4 MG/ML CPJ (NOT FOR IM USE) IV ONE (21:30)
[2019-01-15 23:35] LABS: BASOPHILS % 0.5 % (0.0-2.0); EOSINOPHILS % 0.1 % (0.0-5.0); HEMATOCRIT. 42.8 % (42.0-52.0); HEMOGLOBIN. 14.3 g/dL (14.0-18.0); LYMPHOCYTES % 17.1 % (20.0-50.0); MEAN CORPUSCULAR HEMOGLOBIN 31.9 pg (28.0-32.0); MEAN CORPUSCULAR VOLUME 95.2 fL (80.0-94.0); MEAN PLATELET VOLUME 8.8 fl (7.4-10.4); MONOCYTES % 5.5 % (2.0-8.0); NEUTROPHILS % 76.8 % (40.0-76.0); PLATELET 184 x1000/uL (130-400); RED CELL DISTRIBUTION WIDTH 15.6 % (11.6-14.6)
[2019-01-15 23:46] LABS: CHLORIDE 110 mEq/L (98-107)
[2019-01-16 00:30] VITALS: BP 138/81
[2019-01-16] MEDS ORDERED: ALBU6.7H9 INH (01:20)
[2019-01-16] MEDS ORDERED: PANT40SU PO (01:20)
[2019-01-16] MEDS ORDERED: CLONIDINE 0.1MG TABLET PO PRN (02:15)
[2019-01-16] MEDS: MORPHINE SULFATE 2 MG/ML CPJ (NOT FOR IM USE) IV PRN ×6 (02:32→22:41)
[2019-01-16] MEDS: ONDANSETRON HCL 4MG/2ML INJ IV PRN ×3 (02:53→18:56)
[2019-01-16 04:00] VITALS: BP 112/74
[2019-01-16] MEDS ORDERED: DIPHENHYDRAMINE 50MG/ML VIAL IV PRN (06:30)
[2019-01-16] MEDS ORDERED: DOCUSATE SODIUM 100MG CAPSULE PO PRN (06:30)
[2019-01-16] MEDS ORDERED: GUAIFENESIN 200MG/10ML SUGAR FREE UDC PO PRN (06:30)
[2019-01-16] MEDS ORDERED: IPRATROPIUM/ALBUTEROL 0.5-3(2.5)MG/3ML NEB HHN PRN (06:30)
[2019-01-16] MEDS ORDERED: NA PHOS,M-B/NA PHOS,DI-BA ENEMA 118ML PR PRN (06:30)
[2019-01-16] MEDS ORDERED: LORAZEPAM 2MG/ML CPJ IV PRN (06:30)
[2019-01-16] MEDS ORDERED: ACETAMINOPHEN 325MG TABLET PO PRN (06:30)
[2019-01-16] MEDS ORDERED: HYDROCODONE/ACETAMINOPHEN 10/325MG TABLET PO PRN (06:30)
[2019-01-16] MEDS ORDERED: MAGNESIUM/ALUMINUM HYDROXIDE/SIMETHICONE 30ML UDC PO PRN (06:30)
[2019-01-16 07:00] LABS: BASOPHILS % 0.7 % (0.0-2.0); EOSINOPHILS % 0.7 % (0.0-5.0); HEMATOCRIT. 40.8 % (42.0-52.0); LYMPHOCYTES % 27.2 % (20.0-50.0); MEAN CORPUSCULAR HEMOGLOBIN 32.5 pg (28.0-32.0); MEAN PLATELET VOLUME 9.2 fl (7.4-10.4); MONOCYTES % 9.2 % (2.0-8.0); NEUTROPHILS % 62.2 % (40.0-76.0); PLATELET 175 x1000/uL (130-400); RED CELL DISTRIBUTION WIDTH 15.6 % (11.6-14.6)
[2019-01-16 07:40] LABS: CHLORIDE 110 mEq/L (98-107)
[2019-01-16 07:55] LABS: CREATINE KINASE 150 IU/L (39-308)
[2019-01-16 07:57] LABS: CREATINE KINASE MB FRACTION < 1.0 ng/mL (0.5-3.6)
[2019-01-16] MEDS: ASPIRIN 81MG EC TABLET PO SCH (08:46)
[2019-01-16] MEDS: NICOTINE 14MG PATCH TD SCH (08:46)
[2019-01-16] MEDS: CLOPIDOGREL 75MG TABLET PO SCH (08:47)
[2019-01-16] MEDS ORDERED: ENOXAPARIN 40MG/0.4ML SYR SUBCUT SCH (09:00)
[2019-01-16] MEDS ORDERED: ENOXAPARIN 30MG/0.3ML SYR SUBCUT SCH (09:00)
[2019-01-16 12:00] VITALS: BP 139/88
[2019-01-16] MEDS: SODIUM CHLORIDE 0.9% INJ 3ML FLUSH IVF SCH ×2 (14:05→20:43)
[2019-01-16 16:00] VITALS: BP 134/86
[2019-01-16 16:29] LABS: CREATINE KINASE 157 IU/L (39-308)
[2019-01-16 16:30] LABS: CREATINE KINASE MB FRACTION 1.1 ng/mL (0.5-3.6)
[2019-01-16 20:00] VITALS: BP 136/90
[2019-01-16] MEDS: LEVETIRACETAM 500MG TABLET PO SCH (20:42)
[2019-01-16] MEDS ORDERED: ATORVASTATIN CALCIUM 40MG TABLET PO SCH (21:00)
[2019-01-17] VITALS: BP 134/78
[2019-01-17 04:00] VITALS: BP 135/88
[2019-01-17] MEDS: SODIUM CHLORIDE 0.9% INJ 3ML FLUSH IVF SCH (05:57)
[2019-01-17] MEDS: MORPHINE SULFATE 2 MG/ML CPJ (NOT FOR IM USE) IV PRN (05:57)
[2019-01-17] MEDS: ONDANSETRON HCL 4MG/2ML INJ IV PRN (05:57)
[2019-01-17 07:54] LABS: BASOPHILS % 0.7 % (0.0-2.0); EOSINOPHILS % 1.1 % (0.0-5.0); HEMATOCRIT. 42.2 % (42.0-52.0); HEMOGLOBIN. 14.2 g/dL (14.0-18.0); LYMPHOCYTES % 30.3 % (20.0-50.0); MEAN CORPUSCULAR HEMOGLOBIN 32.1 pg (28.0-32.0); MEAN CORPUSCULAR VOLUME 95.5 fL (80.0-94.0); MEAN PLATELET VOLUME 9.6 fl (7.4-10.4); MONOCYTES % 12.3 % (2.0-8.0); NEUTROPHILS % 55.6 % (40.0-76.0); PLATELET 184 x1000/uL (130-400); RED BLOOD CELL COUNT 4.41 mill/uL (4.7-6.1); RED CELL DISTRIBUTION WIDTH 15.7 % (11.6-14.6)
[2019-01-17 08:00] VITALS: BP 134/85
[2019-01-17 08:42] LABS: CHLORIDE 110 mEq/L (98-107)
[2019-01-17] MEDS: NICOTINE 14MG PATCH TD SCH (09:03)
[2019-01-17] MEDS: ASPIRIN 81MG EC TABLET PO SCH (09:03)
[2019-01-17] MEDS: CLOPIDOGREL 75MG TABLET PO SCH (09:03)
[2019-01-17] MEDS: LEVETIRACETAM 500MG TABLET PO SCH (09:03)
[2019-01-17 09:10] LABS: LDL CHOLESTEROL 67 mg/dL (5-100)
[2019-01-17 09:12] LABS: HDL CHOLESTEROL 42 mg/dL (40-59); T4 FREE 1.07 ng/dL (0.76-1.46)
[2019-01-17 09:40] VITALS: BP 134/85
[2019-03-25] MEDS ORDERED: ACET325T52 PO ×2 (12:52→12:53)
[2019-03-25] MEDS ORDERED: METO-411 PO (12:55)
[2019-03-25] MEDS ORDERED: LEVE1000 PO (12:56)
[2019-03-25] MEDS ORDERED: FLUT16SP15 BOTHNSTRLS (13:17)
[2019-03-25] MEDS ORDERED: NICO-682 TP (13:18)
[2019-03-25] MEDS ORDERED: NICO-786 TD (13:23)
== END 2019-01-17 10:23 | disposition home or self-care (01) | DRG 198 ==
LOC: ER 18:11 → 7WST 23:26 → EDBEDREQ 23:27 → EDBEDREQTM 23:27 → ENRESERV 23:38
PROVIDERS: ADMIT Internal Medicine; ATTEND Internal Medicine
DX: R07.9 Chest pain, unspecified (principal); I25.10 Atherosclerotic heart disease of native coronary artery without angina pectoris; R65.10 Systemic inflammatory response syndrome (SIRS) of non-infectious origin without acute organ dysfunction; F17.210 Nicotine dependence, cigarettes, uncomplicated; J45.909 Unspecified asthma, uncomplicated; I10 Essential (primary) hypertension; I25.5 Ischemic cardiomyopathy; E78.5 Hyperlipidemia, unspecified; G40.909 Epilepsy, unspecified, not intractable, without status epilepticus; I25.2 Old myocardial infarction; Z95.5 Presence of coronary angioplasty implant and graft; Z88.8 Allergy status to other drugs, medicaments and biological substances; Z91.018 Allergy to other foods; Z79.899 Other long term (current) drug therapy; Z79.02 Long term (current) use of antithrombotics/antiplatelets; Z79.82 Long term (current) use of aspirin; Z71.6 Tobacco abuse counseling
CPT/HCPCS: 36415; 71045; 80048; 80061; 82550; 82553; 83880; 84439; 84443; 84484; 93005; 96374; 99285; J2270; J2405

== ENCOUNTER 2019-02-13 19:01 | Inpatient (IN) | payer MEDICAID ==
[~2019-02-13] VITALS: Ht 170.2 cm; Wt 96.2 kg
[~2019-02-13 19:01] MED LIST changes: +ALBU6.7H9 INH; +PANT40SU PO
[2019-02-13] MEDS ORDERED: ASPIRIN 81MG TABLET PO ONE (20:30)
[2019-02-13 23:10] LABS: EOSINOPHILS % 0.7 % (0.0-5.0); HEMATOCRIT. 42.2 % (42.0-52.0); HEMOGLOBIN. 14.1 g/dL (14.0-18.0); LYMPHOCYTES % 29.9 % (20.0-50.0); MEAN CORPUSCULAR HEMOGLOBIN 32.3 pg (28.0-32.0); MEAN CORPUSCULAR VOLUME 96.6 fL (80.0-94.0); MEAN PLATELET VOLUME 8.8 fl (7.4-10.4); MONOCYTES % 8.9 % (2.0-8.0); NEUTROPHILS % 59.5 % (40.0-76.0); PLATELET 184 x1000/uL (130-400); RED BLOOD CELL COUNT 4.37 mill/uL (4.7-6.1); RED CELL DISTRIBUTION WIDTH 15.4 % (11.6-14.6)
[2019-02-14 00:31] LABS: CHLORIDE 117 mEq/L (98-107)
[2019-02-14] MEDS ORDERED: FUROSEMIDE 20MG/2ML VIAL IVP ONE (01:00)
[2019-02-14] MEDS ORDERED: CLONIDINE 0.1MG TABLET PO PRN (06:30)
[2019-02-14] MEDS ORDERED: IPRATROPIUM/ALBUTEROL 0.5-3(2.5)MG/3ML NEB HHN PRN (06:30)
[2019-02-14] MEDS ORDERED: ENOXAPARIN 40MG/0.4ML SYR SUBCUT SCH (06:30)
[2019-02-14] MEDS ORDERED: DOCUSATE SODIUM 100MG CAPSULE PO PRN (06:30)
[2019-02-14] MEDS ORDERED: GUAIFENESIN 200MG/10ML SUGAR FREE UDC PO PRN (06:30)
[2019-02-14] MEDS ORDERED: ACETAMINOPHEN 650MG SUPP PR PRN (06:30)
[2019-02-14] MEDS ORDERED: DIPHENHYDRAMINE 50MG/ML VIAL IV PRN (06:30)
[2019-02-14] MEDS ORDERED: MAGNESIUM/ALUMINUM HYDROXIDE/SIMETHICONE 30ML UDC PO PRN (06:30)
[2019-02-14] MEDS ORDERED: ACETAMINOPHEN 325MG TABLET PO PRN (06:30)
[2019-02-14] MEDS ORDERED: MEDICATION NOT ON FORMULARY EA (Metoprolol Succinate 50 MG) PO SCH (06:30)
[2019-02-14] MEDS ORDERED: NA PHOS,M-B/NA PHOS,DI-BA ENEMA 118ML PR PRN (06:30)
[2019-02-14] MEDS ORDERED: NITROGLYCERIN 0.4MG TABLET SL SL PRN (06:30)
[2019-02-14 06:48] LABS: CHLORIDE 113 mEq/L (98-107)
[2019-02-14 08:00] VITALS: BP 139/72
[2019-02-14] MEDS ORDERED: REGADENOSON 0.4 MG/5 ML IV ONE (08:45)
[2019-02-14] MEDS ORDERED: LEVETIRACETAM PO SCH (09:00)
[2019-02-14] MEDS ORDERED: ASPIRIN 81MG EC TABLET PO SCH (09:00)
[2019-02-14] MEDS ORDERED: FUROSEMIDE 20MG TABLET PO SCH (09:00)
[2019-02-14] MEDS: ENOXAPARIN 30MG/0.3ML SYR SUBCUT SCH ×2 (10:01→21:41)
[2019-02-14] MEDS: LEVETIRACETAM 250MG TABLET PO SCH ×2 (10:01→21:35)
[2019-02-14] MEDS: MORPHINE SULFATE 2 MG/ML CPJ (NOT FOR IM USE) IV PRN ×4 (10:01→23:15)
[2019-02-14] MEDS: ASPIRIN 81MG EC TABLET PO SCH (10:02)
[2019-02-14] MEDS: METOPROLOL TARTRATE 50MG TABLET PO SCH ×2 (10:02→21:36)
[2019-02-14] MEDS: FUROSEMIDE 40MG TABLET PO SCH (10:02)
[2019-02-14] MEDS: CLOPIDOGREL 75MG TABLET PO SCH (10:02)
[2019-02-14] MEDS: ONDANSETRON HCL 4MG/2ML INJ IV PRN ×2 (10:07→18:45)
[2019-02-14] MEDS: CARVEDILOL 3.125 MG TABLET PO SCH ×2 (10:37→21:37)
[2019-02-14] MEDS: RANOLAZINE 500 MG TAB.SR.12H PO SCH ×2 (12:26→21:36)
[2019-02-14 12:31] VITALS: BP 103/54
[2019-02-14] MEDS: NITROGLYCERIN OINT 1GM/INCH UDPKT TD SCH ×2 (14:00→21:47)
[2019-02-14] MEDS: SODIUM CHLORIDE 0.9% INJ 3ML FLUSH IVF SCH ×2 (15:32→21:46)
[2019-02-14 15:56] LABS: CREATINE KINASE 135 IU/L (39-308); CREATINE KINASE MB FRACTION 1.3 ng/mL (0.5-3.6)
[2019-02-14 16:15] VITALS: BP 160/62
[2019-02-14] MEDS: HYDROCODONE/ACETAMINOPHEN 5/325MG TABLET PO PRN ×2 (17:06→21:38)
[2019-02-14 19:50] LABS: CLARITY URINE CLEAR (CLEAR); COLOR URINE YELLOW (YELLOW); KETONES URINE TRACE (NEGATIVE); LEUKOCYTE ESTERASE URINE NEGATIVE (NEGATIVE); NITRITE URINE NEGATIVE (NEGATIVE); OCCULT BLOOD URINE NEGATIVE (NEGATIVE); PH URINE 6.5 (4.5-8.0); PROTEIN URINE NEGATIVE (NEGATIVE); SPECIFIC GRAVITY URINE 1.025 (1.005-1.030)
[2019-02-14 20:18] LABS: *AMPHETAMINES SCREEN URINE NEGATIVE (NEGATIVE); *BARBITURATES SCREEN URINE NEGATIVE (NEGATIVE); *BENZODIAZEPINES SCREEN URINE NEGATIVE (NEGATIVE); *COCAINE SCREEN URINE NEGATIVE (NEGATIVE); METHADONE URINE SCREEN NEGATIVE (NEGATIVE); OPIATES URINE SCREEN PRESUMTIVE POSITIVE (NEGATIVE)
[2019-02-14 20:19] LABS: CANNABINOID URINE SCREEN PRESUMTIVE POSITIVE (NEGATIVE); PHENCYCLIDINE URINE SCREEN NEGATIVE (NEGATIVE)
[2019-02-14] MEDS ORDERED: ATORVASTATIN CALCIUM 40MG TABLET PO SCH (21:00)
[2019-02-14] MEDS ORDERED: MEDICATION NOT ON FORMULARY EA (Atorvastatin Calcium (Lipitor) 80 MG) PO SCH (21:00)
[2019-02-14] MEDS ORDERED: RIVAROXABAN 20 MG TABLET PO SCH (21:00)
[2019-02-14] MEDS: LEVETIRACETAM 500MG TABLET PO SCH (21:35)
[2019-02-15 00:01] LABS: CREATINE KINASE 116 IU/L (39-308); CREATINE KINASE MB FRACTION < 1.0 ng/mL (0.5-3.6)
[2019-02-15] MEDS: MORPHINE SULFATE 2 MG/ML CPJ (NOT FOR IM USE) IV PRN ×4 (03:04→17:11)
[2019-02-15] MEDS: NITROGLYCERIN OINT 1GM/INCH UDPKT TD SCH (06:00)
[2019-02-15] MEDS: SODIUM CHLORIDE 0.9% INJ 3ML FLUSH IVF SCH ×2 (07:11→15:20)
[2019-02-15 07:40] LABS: CHLORIDE 110 mEq/L (98-107)
[2019-02-15 07:57] LABS: LDL CHOLESTEROL 61 mg/dL (5-100)
[2019-02-15 07:58] LABS: HDL CHOLESTEROL 39 mg/dL (40-59)
[2019-02-15 08:12] VITALS: BP 139/93
[2019-02-15 08:25] LABS: BASOPHILS % 0.2 % (0.0-2.0); EOSINOPHILS % 1.4 % (0.0-5.0); HEMATOCRIT. 41.6 % (42.0-52.0); LYMPHOCYTES % 40.2 % (20.0-50.0); MEAN CORPUSCULAR HEMOGLOBIN 32.3 pg (28.0-32.0); MEAN CORPUSCULAR VOLUME 96.1 fL (80.0-94.0); MEAN PLATELET VOLUME 10.4 fl (7.4-10.4); MONOCYTES % 13.1 % (2.0-8.0); NEUTROPHILS % 45.1 % (40.0-76.0); PLATELET 153 x1000/uL (130-400); RED BLOOD CELL COUNT 4.33 mill/uL (4.7-6.1); RED CELL DISTRIBUTION WIDTH 15.8 % (11.6-14.6)
[2019-02-15] MEDS: LEVETIRACETAM 250MG TABLET PO SCH (09:00)
[2019-02-15] MEDS ORDERED: REGADENOSON 0.4 MG/5 ML IV ONE (10:42)
[2019-02-15 12:07] VITALS: BP 168/97
[2019-02-15] MEDS: RANOLAZINE 500 MG TAB.SR.12H PO SCH (12:23)
[2019-02-15] MEDS: CLOPIDOGREL 75MG TABLET PO SCH (12:23)
[2019-02-15] MEDS: ASPIRIN 81MG EC TABLET PO SCH (12:23)
[2019-02-15] MEDS: FUROSEMIDE 40MG TABLET PO SCH (12:24)
[2019-02-15] MEDS: LEVETIRACETAM 500MG TABLET PO SCH (12:25)
[2019-02-15] MEDS: METOPROLOL TARTRATE 50MG TABLET PO SCH (12:26)
[2019-02-15] MEDS: CARVEDILOL 3.125 MG TABLET PO SCH (12:26)
[2019-02-15] MEDS: ENOXAPARIN 30MG/0.3ML SYR SUBCUT SCH (12:27)
[2019-02-15 16:24] VITALS: BP 138/93
[2019-02-15] MEDS: ONDANSETRON HCL 4MG/2ML INJ IV PRN (17:09)
[2019-02-15 17:11] VITALS: BP 138/93
[2019-02-15] MEDS ORDERED: CARVEDILOL 6.25 MG TABLET PO SCH (21:00)
[2019-03-25] MEDS ORDERED: ACET325T52 PO ×2 (12:52→12:53)
[2019-03-25] MEDS ORDERED: METO-411 PO (12:55)
[2019-03-25] MEDS ORDERED: LEVE1000 PO (12:56)
[2019-03-25] MEDS ORDERED: FLUT16SP15 BOTHNSTRLS (13:17)
[2019-03-25] MEDS ORDERED: NICO-682 TP (13:18)
[2019-03-25] MEDS ORDERED: NICO-786 TD (13:23)
== END 2019-02-15 19:20 | disposition home or self-care (01) | DRG 198 ==
LOC: ER 19:37 → EDBEDREQTM 02-14 00:55 → EDBEDREQ 02-14 00:55 → ENRESERV 02-14 07:05 → 7WST 02-14 08:40
PROVIDERS: ADMIT Family Medicine; ATTEND Family Medicine
DX: I25.110 Atherosclerotic heart disease of native coronary artery with unstable angina pectoris (principal); I11.0 Hypertensive heart disease with heart failure; E87.5 Hyperkalemia; I50.22 Chronic systolic (congestive) heart failure; I25.5 Ischemic cardiomyopathy; E78.5 Hyperlipidemia, unspecified; F17.200 Nicotine dependence, unspecified, uncomplicated; G44.40 Drug-induced headache, not elsewhere classified, not intractable; J44.9 Chronic obstructive pulmonary disease, unspecified; T46.3X5A Adverse effect of coronary vasodilators, initial encounter; Z79.02 Long term (current) use of antithrombotics/antiplatelets; Z79.82 Long term (current) use of aspirin; Z79.899 Other long term (current) drug therapy; Z71.6 Tobacco abuse counseling; Z95.5 Presence of coronary angioplasty implant and graft; Y92.89 Other specified places as the place of occurrence of the external cause; Z88.8 Allergy status to other drugs, medicaments and biological substances; Z91.018 Allergy to other foods
CPT/HCPCS: 36415; 71045; 78452; 80048; 80061; 80305; 81003; 82550; 82553; 83880; 84484; 93005; 93017; 93306; 99285; A9500; J1650; J1940; J2270; J2405; J2785

== ENCOUNTER 2019-03-01 20:22 | Inpatient (IN) | payer MEDICAID ==
[~2019-03-01] VITALS: Ht 175.3 cm; Wt 93.0 kg
[2019-03-01] MEDS ORDERED: ONDANSETRON HCL 4MG/2ML INJ IV STA (21:04)
[2019-03-01] MEDS ORDERED: MORPHINE SULFATE 4 MG/ML CPJ (NOT FOR IM USE) IV STA (21:04)
[2019-03-01] MEDS ORDERED: ASPIRIN 81MG TABLET PO ONE (21:15)
[2019-03-01 21:44] LABS: BASOPHILS % 0.7 % (0.0-2.0); EOSINOPHILS % 0.7 % (0.0-5.0); HEMATOCRIT. 41.8 % (42.0-52.0); HEMOGLOBIN. 14.2 g/dL (14.0-18.0); LYMPHOCYTES % 26.7 % (20.0-50.0); MEAN CORPUSCULAR HEMOGLOBIN 32.5 pg (28.0-32.0); MEAN CORPUSCULAR VOLUME 95.7 fL (80.0-94.0); MEAN PLATELET VOLUME 9.8 fl (7.4-10.4); MONOCYTES % 9.3 % (2.0-8.0); NEUTROPHILS % 62.6 % (40.0-76.0); PLATELET 183 x1000/uL (130-400); RED BLOOD CELL COUNT 4.36 mill/uL (4.7-6.1); RED CELL DISTRIBUTION WIDTH 15.8 % (11.6-14.6)
[2019-03-01 21:47] LABS: CHLORIDE 114 mEq/L (98-107)
[2019-03-01 21:49] LABS: PROTHROMBIN TIME 10.1 sec (9.6-11.0)
[2019-03-01 21:55] LABS: PARTIAL THROMBOPLASTIN TIME < 20.0 sec (23.4-31.0)
[2019-03-01] MEDS ORDERED: MAGNESIUM/ALUMINUM HYDROXIDE/SIMETHICONE 30ML UDC PO PRN (22:45)
[2019-03-01] MEDS ORDERED: ACETAMINOPHEN 325MG TABLET PO PRN (22:45)
[2019-03-01] MEDS ORDERED: GUAIFENESIN 200MG/10ML SUGAR FREE UDC PO PRN (22:45)
[2019-03-01] MEDS ORDERED: LORAZEPAM 2MG/ML CPJ IV PRN (22:45)
[2019-03-01] MEDS ORDERED: CLONIDINE 0.1MG TABLET PO PRN (22:45)
[2019-03-01] MEDS ORDERED: DOCUSATE SODIUM 100MG CAPSULE PO PRN (22:45)
[2019-03-02] VITALS (8 sets, daily range): BP systolic 102–140; BP diastolic 66–88
[2019-03-02] MEDS: MORPHINE SULFATE 2 MG/ML CPJ (NOT FOR IM USE) IV PRN ×4 (06:17→22:05)
[2019-03-02 06:34] LABS: CHLORIDE 113 mEq/L (98-107)
[2019-03-02 06:45] LABS: BASOPHILS % 0.5 % (0.0-2.0); EOSINOPHILS % 1.3 % (0.0-5.0); HEMATOCRIT. 39.1 % (42.0-52.0); HEMOGLOBIN. 13.3 g/dL (14.0-18.0); LYMPHOCYTES % 34.8 % (20.0-50.0); MEAN CORPUSCULAR HEMOGLOBIN 32.6 pg (28.0-32.0); MEAN PLATELET VOLUME 9.5 fl (7.4-10.4); MONOCYTES % 10.7 % (2.0-8.0); NEUTROPHILS % 52.7 % (40.0-76.0); PLATELET 198 x1000/uL (130-400); RED BLOOD CELL COUNT 4.07 mill/uL (4.7-6.1); RED CELL DISTRIBUTION WIDTH 15.8 % (11.6-14.6)
[2019-03-02] MEDS: ASPIRIN 81MG EC TABLET PO SCH (08:36)
[2019-03-02] MEDS: CARVEDILOL 6.25 MG TABLET PO SCH ×2 (08:36→21:47)
[2019-03-02] MEDS: CLOPIDOGREL 75MG TABLET PO SCH (08:36)
[2019-03-02] MEDS ORDERED: RANOLAZINE 500 MG TAB.SR.12H PO SCH (09:00)
[2019-03-02] MEDS: ONDANSETRON HCL 4MG/2ML INJ IV PRN ×2 (10:58→17:12)
[2019-03-02] MEDS ORDERED: RIVAROXABAN 10 MG TABLET PO SCH (17:00)
[2019-03-02] MEDS ORDERED: ATORVASTATIN CALCIUM 40MG TABLET PO SCH (21:00)
[2019-03-02] MEDS: LEVETIRACETAM 500MG/5ML CUP PO SCH (21:47)
[2019-03-02] MEDS: RANOLAZINE 500 MG TAB.SR.12H PO SCH (21:47)
[2019-03-03] VITALS: BP 117/79
[2019-03-03 03:59] LABS: *AMPHETAMINES SCREEN URINE NEGATIVE (NEGATIVE); *BARBITURATES SCREEN URINE NEGATIVE (NEGATIVE); *BENZODIAZEPINES SCREEN URINE NEGATIVE (NEGATIVE)
[2019-03-03 04:00] VITALS: BP 121/83
[2019-03-03 04:00] LABS: *COCAINE SCREEN URINE NEGATIVE (NEGATIVE); CANNABINOID URINE SCREEN PRESUMTIVE POSITIVE (NEGATIVE); OPIATES URINE SCREEN PRESUMTIVE POSITIVE (NEGATIVE); PHENCYCLIDINE URINE SCREEN NEGATIVE (NEGATIVE)
[2019-03-03 04:01] LABS: METHADONE URINE SCREEN NEGATIVE (NEGATIVE)
[2019-03-03 05:37] LABS: CHLORIDE 110 mEq/L (98-107)
[2019-03-03 05:45] LABS: LDL CHOLESTEROL 76 mg/dL (5-100)
[2019-03-03 05:47] LABS: CREATINE KINASE 84 IU/L (39-308); CREATINE KINASE MB FRACTION 1.1 ng/mL (0.5-3.6); HDL CHOLESTEROL 41 mg/dL (40-59)
[2019-03-03] MEDS: ONDANSETRON HCL 4MG/2ML INJ IV PRN ×2 (06:02→10:25)
[2019-03-03] MEDS: MORPHINE SULFATE 2 MG/ML CPJ (NOT FOR IM USE) IV PRN ×2 (06:02→10:20)
[2019-03-03 06:17] LABS: BASOPHILS % 0.7 % (0.0-2.0); EOSINOPHILS % 1.1 % (0.0-5.0); HEMATOCRIT. 42.1 % (42.0-52.0); HEMOGLOBIN. 14.1 g/dL (14.0-18.0); LYMPHOCYTES % 29.8 % (20.0-50.0); MEAN CORPUSCULAR HEMOGLOBIN 32.2 pg (28.0-32.0); MEAN CORPUSCULAR VOLUME 96.3 fL (80.0-94.0); MEAN PLATELET VOLUME 9.9 fl (7.4-10.4); MONOCYTES % 11.4 % (2.0-8.0); PLATELET 198 x1000/uL (130-400); RED BLOOD CELL COUNT 4.37 mill/uL (4.7-6.1)
[2019-03-03 08:00] VITALS: BP 140/89
[2019-03-03] MEDS: ASPIRIN 81MG EC TABLET PO SCH (08:48)
[2019-03-03] MEDS: LEVETIRACETAM 500MG/5ML CUP PO SCH (08:48)
[2019-03-03] MEDS: CARVEDILOL 6.25 MG TABLET PO SCH (08:48)
[2019-03-03] MEDS: CLOPIDOGREL 75MG TABLET PO SCH (08:49)
[2019-03-03] MEDS: RANOLAZINE 500 MG TAB.SR.12H PO SCH (08:49)
[2019-03-03 12:10] VITALS: BP 124/84
[2019-03-25] MEDS ORDERED: ACET325T52 PO ×2 (12:52→12:53)
[2019-03-25] MEDS ORDERED: METO-411 PO (12:55)
[2019-03-25] MEDS ORDERED: LEVE1000 PO (12:56)
[2019-03-25] MEDS ORDERED: FLUT16SP15 BOTHNSTRLS (13:17)
[2019-03-25] MEDS ORDERED: NICO-682 TP (13:18)
[2019-03-25] MEDS ORDERED: NICO-786 TD (13:23)
== END 2019-03-03 13:10 | disposition home or self-care (01) | DRG 198 ==
LOC: ER 20:22 → 8WST 22:29 → EDBEDREQTM 22:34 → EDBEDREQ 22:34 → ENRESERV 23:19 → 8WST 03-02 01:02
PROVIDERS: ADMIT Hospitalist; ATTEND Hospitalist
DX: I25.119 Atherosclerotic heart disease of native coronary artery with unspecified angina pectoris (principal); D68.69 Other thrombophilia; I25.82 Chronic total occlusion of coronary artery; I11.0 Hypertensive heart disease with heart failure; I50.9 Heart failure, unspecified; I51.3 Intracardiac thrombosis, not elsewhere classified; F17.200 Nicotine dependence, unspecified, uncomplicated; J44.9 Chronic obstructive pulmonary disease, unspecified; E78.00 Pure hypercholesterolemia, unspecified; G40.909 Epilepsy, unspecified, not intractable, without status epilepticus; F12.90 Cannabis use, unspecified, uncomplicated; J45.909 Unspecified asthma, uncomplicated; E78.1 Pure hyperglyceridemia; K21.9 Gastro-esophageal reflux disease without esophagitis; Z79.899 Other long term (current) drug therapy; Z88.8 Allergy status to other drugs, medicaments and biological substances; Z79.01 Long term (current) use of anticoagulants; Z95.5 Presence of coronary angioplasty implant and graft; I25.2 Old myocardial infarction; Z79.82 Long term (current) use of aspirin; Z71.6 Tobacco abuse counseling
CPT/HCPCS: 36415; 71045; 80061; 80305; 82550; 82553; 83735; 83880; 84484; 93005; 93306; 99285; C1893; J2270; J2405

== ENCOUNTER 2019-05-20 16:59 | Inpatient (IN) | payer MEDICAID ==
[~2019-05-20] VITALS: Ht 175.3 cm; Wt 95.7 kg
[~2019-05-20 16:59] MED LIST changes: -ALBU6.7H9 INH; -ASPI-1393 PO; +ASPI-1497 PO; -CLON-457 MT; +FLUT16SP15 BOTHNSTRLS; -MECL-109 PO; -METO-385 PO; +METO-396 PO; +METO-411 PO; -NICO-645 TP
[2019-05-20] MEDS ORDERED: METHYLPREDNISOLONE SOD SUCC 125 MG/2 ML VIAL IV STA (17:44)
[2019-05-20] MEDS ORDERED: MORPHINE SULFATE 4 MG/ML CPJ (NOT FOR IM USE) IV STA (17:44)
[2019-05-20] MEDS ORDERED: SODIUM CHLORIDE 0.9% 1,000 ML IV ONE (17:44)
[2019-05-20] MEDS ORDERED: ONDANSETRON HCL 4MG/2ML INJ IV STA (17:44)
[2019-05-20] MEDS ORDERED: ACETAMINOPHEN 325MG TABLET PO STA (17:44)
[2019-05-20 18:18] LABS: CLARITY URINE CLEAR (CLEAR); COLOR URINE DARK YELLOW (YELLOW); KETONES URINE 1+ (NEGATIVE); LEUKOCYTE ESTERASE URINE TRACE (NEGATIVE); NITRITE URINE NEGATIVE (NEGATIVE); OCCULT BLOOD URINE NEGATIVE (NEGATIVE); PROTEIN URINE 1+ (NEGATIVE); SPECIFIC GRAVITY URINE 1.031 (1.005-1.030)
[2019-05-20 18:22] LABS: BG BASE EXCESS -0.6 mmol/L (-2.0-2.0); BG CARBOXYHEMOGLOBIN 2.6 % (0.5-1.5); BG DEOXYHEMOGLOBIN 5.2 % (0.0-5.0); BG FRACTION INSPIRED OXYGEN 21; BG HCO3 ACT 22.6 mmol/L (22.0-26.0); BG METHEMOGLOBIN 0.3 % (0.0-1.5); BG OXYGEN SATURATION 94.6 % (92.0-98.5); BG OXYHEMOGLOBIN 91.9 % (94.0-97.0); BG PCO2 33.7 mmHg (35.0-45.0); BG PH 7.445 (7.350-7.450); BG PO2 68.6 mmHg (75.0-100.0); BG SAMPLE SITE RIGHT BRACHIAL; BG VENT MODE ROOM AIR
[2019-05-20 18:28] LABS: *AMPHETAMINES SCREEN URINE NEGATIVE (NEGATIVE); *BARBITURATES SCREEN URINE NEGATIVE (NEGATIVE); *BENZODIAZEPINES SCREEN URINE NEGATIVE (NEGATIVE); *COCAINE SCREEN URINE NEGATIVE (NEGATIVE); METHADONE URINE SCREEN NEGATIVE (NEGATIVE); OPIATES URINE SCREEN PRESUMTIVE POSITIVE (NEGATIVE)
[2019-05-20 18:29] LABS: CANNABINOID URINE SCREEN PRESUMTIVE POSITIVE (NEGATIVE); PHENCYCLIDINE URINE SCREEN NEGATIVE (NEGATIVE)
[2019-05-20 18:46] LABS: HEMATOCRIT. 47.6 % (42.0-52.0); HEMOGLOBIN. 16.2 g/dL (14.0-18.0); MEAN CORPUSCULAR VOLUME 93.8 fL (80.0-94.0); MEAN PLATELET VOLUME 9.2 fl (7.4-10.4); PLATELET 171 x1000/uL (130-400); RED BLOOD CELL COUNT 5.08 mill/uL (4.7-6.1); RED CELL DISTRIBUTION WIDTH 15.4 % (11.6-14.6)
[2019-05-20 18:52] LABS: CHLORIDE 102 mEq/L (98-107)
[2019-05-20 18:56] LABS: ETHANOL BLOOD < 10 mg/dL; INR 1.1; PARTIAL THROMBOPLASTIN TIME 29.7 sec (23.4-31.0); PROTHROMBIN TIME 10.8 sec (9.6-11.0)
[2019-05-20 19:43] LABS: PLATELET ESTIMATE NORMAL
[2019-05-20] MEDS ORDERED: IPRATROPIUM/ALBUTEROL 0.5-3(2.5)MG/3ML NEB HHN ONE (21:15)
[2019-05-20] MEDS ORDERED: LEVOFLOXACIN 500MG PREMIX 100 ML IV ONE (21:15)
[2019-05-20] MEDS ORDERED: KETOROLAC 30MG/ML VIAL IV ONE (21:15)
[2019-05-20] MEDS ORDERED: MORPHINE SULFATE 4 MG/ML CPJ (NOT FOR IM USE) IV ONE (22:45)
[2019-05-20] MEDS ORDERED: ONDANSETRON HCL 4MG/2ML INJ IV ONE (22:45)
[2019-05-21] VITALS (7 sets, daily range): BP systolic 100–146; BP diastolic 61–90
[2019-05-21] MEDS: IPRATROPIUM/ALBUTEROL 0.5-3(2.5)MG/3ML NEB HHN SCH ×3 (01:00→20:52)
[2019-05-21] MEDS ORDERED: HYDROCODONE/ACETAMINOPHEN 10/325MG TABLET PO PRN (01:00)
[2019-05-21] MEDS ORDERED: CLONIDINE 0.1MG TABLET PO PRN (01:15)
[2019-05-21] MEDS ORDERED: NITROGLYCERIN 0.4MG TABLET SL SL PRN (01:15)
[2019-05-21] MEDS ORDERED: FURO40TA5 PO (01:15)
[2019-05-21] MEDS ORDERED: METO-396 PO (01:18)
[2019-05-21] MEDS ORDERED: NICO-645 TP (01:23)
[2019-05-21] MEDS ORDERED: CLON0.1T PO (01:29)
[2019-05-21] MEDS ORDERED: PANT40TA4 PO (01:33)
[2019-05-21] MEDS ORDERED: IPRATROPIUM/ALBUTEROL 0.5-3(2.5)MG/3ML NEB HHN PRN (01:45)
[2019-05-21] MEDS ORDERED: POTASSIUM CHLORIDE 20MEQ TABLET SR PO SCH (01:49)
[2019-05-21] MEDS: MORPHINE SULFATE 2 MG/ML CPJ (NOT FOR IM USE) IV PRN ×8 (02:07→23:25)
[2019-05-21] MEDS: ONDANSETRON HCL 4MG/2ML INJ IV PRN ×2 (02:25→23:23)
[2019-05-21] MEDS: PANTOPRAZOLE 40MG DR TABLET PO SCH (08:36)
[2019-05-21] MEDS: IPRATROPIUM BROMIDE (0.02%) 0.5MG/2.5ML NEB HHN SCH ×2 (08:40→11:53)
[2019-05-21] MEDS ORDERED: MEDICATION NOT ON FORMULARY EA (Metoprolol Succinate 25 MG) PO SCH (09:00)
[2019-05-21] MEDS ORDERED: FUROSEMIDE 40MG TABLET PO SCH (09:00)
[2019-05-21] MEDS ORDERED: MEDICATION NOT ON FORMULARY EA (Levetiracetam (Keppra) 1,000 MG) PO SCH (09:00)
[2019-05-21] MEDS ORDERED: MEDICATION NOT ON FORMULARY EA (Tiotropium Bromide (Spiriva) 1 CAP) INH SCH (09:00)
[2019-05-21] MEDS ORDERED: NICOTINE 14 MG TP SCH (09:00)
[2019-05-21 09:31] LABS: HEMATOCRIT. 46.8 % (42.0-52.0); HEMOGLOBIN. 15.9 g/dL (14.0-18.0); MEAN CORPUSCULAR VOLUME 94.3 fL (80.0-94.0); MEAN PLATELET VOLUME 9.2 fl (7.4-10.4); PLATELET 166 x1000/uL (130-400); RED BLOOD CELL COUNT 4.96 mill/uL (4.7-6.1)
[2019-05-21 09:51] LABS: CHLORIDE 108 mEq/L (98-107)
[2019-05-21] MEDS: ASPIRIN 81MG EC TABLET PO SCH (10:30)
[2019-05-21] MEDS: LEVETIRACETAM 500MG TABLET PO SCH ×2 (10:30→19:09)
[2019-05-21] MEDS: METOPROLOL TARTRATE 25MG TABLET PO SCH ×2 (10:31→21:04)
[2019-05-21] MEDS: CLOPIDOGREL 75MG TABLET PO SCH (10:31)
[2019-05-21] MEDS: NICOTINE 14MG PATCH TOP SCH (10:32)
[2019-05-21] MEDS ORDERED: IPRATROPIUM/ALBUTEROL 0.5-3(2.5)MG/3ML NEB HHN SCH (12:00)
[2019-05-21] MEDS ORDERED: METHYLPREDNISOLONE SOD SUCC 40 MG/ML VIAL IV SCH (13:00)
[2019-05-21] MEDS: GUAIFENESIN 600MG ER TABLET PO SCH ×2 (13:30→21:04)
[2019-05-21 13:59] LABS: PLATELET ESTIMATE NORMAL
[2019-05-21] MEDS: AZITHROMYCIN 500 MG in DEXT 5% WATER 250 ML IV SCH (18:00)
[2019-05-21] MEDS: BUDESONIDE 0.5MG/2ML NEB HHN SCH (20:51)
[2019-05-21] MEDS: RIVAROXABAN 20 MG TABLET PO SCH (21:03)
[2019-05-22 04:00] VITALS: BP 103/73
[2019-05-22] MEDS: MORPHINE SULFATE 2 MG/ML CPJ (NOT FOR IM USE) IV PRN ×4 (04:35→21:49)
[2019-05-22] MEDS: BENZONATATE 100MG CAPSULE PO PRN ×3 (04:35→16:49)
[2019-05-22] MEDS: IPRATROPIUM/ALBUTEROL 0.5-3(2.5)MG/3ML NEB HHN SCH ×4 (05:17→20:52)
[2019-05-22] MEDS: ONDANSETRON HCL 4MG/2ML INJ IV PRN ×2 (05:30→10:55)
[2019-05-22 08:00] VITALS: BP 103/59
[2019-05-22] MEDS: ASPIRIN 81MG EC TABLET PO SCH (08:15)
[2019-05-22] MEDS: CLOPIDOGREL 75MG TABLET PO SCH (08:15)
[2019-05-22] MEDS: LEVETIRACETAM 500MG TABLET PO SCH ×2 (08:15→16:49)
[2019-05-22] MEDS: GUAIFENESIN 600MG ER TABLET PO SCH ×2 (08:15→21:48)
[2019-05-22] MEDS: NICOTINE 14MG PATCH TOP SCH (08:15)
[2019-05-22] MEDS: PANTOPRAZOLE 40MG DR TABLET PO SCH (08:16)
[2019-05-22] MEDS: METOPROLOL TARTRATE 25MG TABLET PO SCH ×2 (08:16→21:00)
[2019-05-22 08:39] LABS: CHLORIDE 107 mEq/L (98-107)
[2019-05-22] MEDS: LORAZEPAM 2MG/ML CPJ IV PRN ×3 (10:44→21:49)
[2019-05-22] MEDS: BUDESONIDE 0.5MG/2ML NEB HHN SCH ×2 (11:20→20:52)
[2019-05-22 12:00] VITALS: BP 116/77
[2019-05-22 16:00] VITALS: BP 134/74
[2019-05-22] MEDS: AZITHROMYCIN 500 MG in DEXT 5% WATER 250 ML IV SCH (16:18)
[2019-05-22] MEDS ORDERED: FUROSEMIDE 40MG/4ML VIAL IVP NR (16:45)
[2019-05-22] MEDS ORDERED: GUAIFENESIN-DM 200MG-20MG/10ML UDC PO PRN (16:45)
[2019-05-22] MEDS ORDERED: METHYLPREDNISOLONE SOD SUCC 40 MG/ML VIAL IV NR (16:45)
[2019-05-22 20:00] VITALS: BP 106/61
[2019-05-22] MEDS ORDERED: FAMOTIDINE 20MG TABLET PO SCH (21:00)
[2019-05-22] MEDS: RIVAROXABAN 20 MG TABLET PO SCH (21:48)
[2019-05-23] VITALS (7 sets, daily range): BP systolic 99–126; BP diastolic 62–85
[2019-05-23] MEDS: LORAZEPAM 2MG/ML CPJ IV PRN (03:32)
[2019-05-23] MEDS: MORPHINE SULFATE 2 MG/ML CPJ (NOT FOR IM USE) IV PRN ×5 (03:32→21:21)
[2019-05-23] MEDS: IPRATROPIUM/ALBUTEROL 0.5-3(2.5)MG/3ML NEB HHN SCH ×5 (04:00→21:31)
[2019-05-23] MEDS: BUDESONIDE 0.5MG/2ML NEB HHN SCH ×2 (07:51→21:32)
[2019-05-23] MEDS: FAMOTIDINE 40MG TABLET PO SCH ×2 (08:31→21:18)
[2019-05-23] MEDS: GUAIFENESIN 600MG ER TABLET PO SCH ×2 (08:33→21:17)
[2019-05-23] MEDS: CLOPIDOGREL 75MG TABLET PO SCH (08:33)
[2019-05-23] MEDS: ASPIRIN 81MG EC TABLET PO SCH (08:33)
[2019-05-23] MEDS: METOPROLOL TARTRATE 25MG TABLET PO SCH ×2 (08:34→21:19)
[2019-05-23] MEDS: LEVETIRACETAM 500MG TABLET PO SCH ×2 (08:34→17:01)
[2019-05-23] MEDS: NICOTINE 14MG PATCH TOP SCH (08:35)
[2019-05-23] MEDS: ONDANSETRON HCL 4MG/2ML INJ IV PRN ×2 (09:13→17:14)
[2019-05-23] MEDS: METHYLPREDNISOLONE SOD SUCC 40 MG/ML VIAL IV SCH ×2 (15:43→21:17)
[2019-05-23] MEDS: AZITHROMYCIN 500 MG in DEXT 5% WATER 250 ML IV SCH (17:00)
[2019-05-23] MEDS: BENZONATATE 100MG CAPSULE PO PRN (17:01)
[2019-05-23 17:03] LABS: HEMOGLOBIN. 16.3 g/dL (14.0-18.0); MEAN CORPUSCULAR HEMOGLOBIN 31.9 pg (28.0-32.0); MEAN CORPUSCULAR VOLUME 93.8 fL (80.0-94.0); MEAN PLATELET VOLUME 9.6 fl (7.4-10.4); PLATELET 177 x1000/uL (130-400); RED BLOOD CELL COUNT 5.12 mill/uL (4.7-6.1); RED CELL DISTRIBUTION WIDTH 14.6 % (11.6-14.6)
[2019-05-23] MEDS: RIVAROXABAN 20 MG TABLET PO SCH (21:17)
[2019-05-23 23:29] LABS: ATYPICAL LYMPHOCYTES 4; PLATELET ESTIMATE NORMAL
[2019-05-24] MEDS: IPRATROPIUM/ALBUTEROL 0.5-3(2.5)MG/3ML NEB HHN SCH ×2 (00:34→09:16)
[2019-05-24] MEDS: BENZONATATE 100MG CAPSULE PO PRN (01:32)
[2019-05-24] MEDS: ONDANSETRON HCL 4MG/2ML INJ IV PRN (01:32)
[2019-05-24] MEDS: MORPHINE SULFATE 2 MG/ML CPJ (NOT FOR IM USE) IV PRN ×3 (01:34→10:34)
[2019-05-24 04:00] VITALS: BP 116/72
[2019-05-24] MEDS: METHYLPREDNISOLONE SOD SUCC 40 MG/ML VIAL IV SCH (06:11)
[2019-05-24 08:00] VITALS: BP 115/74
[2019-05-24] MEDS: CLOPIDOGREL 75MG TABLET PO SCH (08:25)
[2019-05-24] MEDS: GUAIFENESIN 600MG ER TABLET PO SCH (08:26)
[2019-05-24] MEDS: LEVETIRACETAM 500MG TABLET PO SCH (08:26)
[2019-05-24] MEDS: ASPIRIN 81MG EC TABLET PO SCH (08:26)
[2019-05-24] MEDS: NICOTINE 14MG PATCH TOP SCH (08:26)
[2019-05-24] MEDS: FAMOTIDINE 40MG TABLET PO SCH (08:26)
[2019-05-24] MEDS: METOPROLOL TARTRATE 25MG TABLET PO SCH (08:27)
[2019-05-24] MEDS: BUDESONIDE 0.5MG/2ML NEB HHN SCH (09:16)
[2019-05-24] MEDS ORDERED: BENZ-16 MT (11:02)
[2019-05-24] MEDS ORDERED: P20 MT (11:02)
[2019-05-24 12:10] VITALS: BP 116/77
[2019-09-17] MEDS ORDERED: ALBU6.7H9 INH (03:21)
== END 2019-05-24 12:47 | disposition home or self-care (01) | DRG 720 ==
LOC: ER 16:59 → 7WST 21:44 → EDBEDREQTM 21:48 → EDBEDREQ 21:48 → ENRESERV 23:22
PROVIDERS: ADMIT Internal Medicine; ATTEND Internal Medicine
DX: A41.9 Sepsis, unspecified organism (principal); I50.23 Acute on chronic systolic (congestive) heart failure; E87.1 Hypo-osmolality and hyponatremia; G40.409 Other generalized epilepsy and epileptic syndromes, not intractable, without status epilepticus; I42.9 Cardiomyopathy, unspecified; J44.1 Chronic obstructive pulmonary disease with (acute) exacerbation; I25.10 Atherosclerotic heart disease of native coronary artery without angina pectoris; J06.9 Acute upper respiratory infection, unspecified; E87.6 Hypokalemia; F12.90 Cannabis use, unspecified, uncomplicated; I11.0 Hypertensive heart disease with heart failure; Z60.2 Problems related to living alone; F17.210 Nicotine dependence, cigarettes, uncomplicated; Z82.49 Family history of ischemic heart disease and other diseases of the circulatory system; Z88.8 Allergy status to other drugs, medicaments and biological substances; Z95.5 Presence of coronary angioplasty implant and graft; Z95.810 Presence of automatic (implantable) cardiac defibrillator; Z91.018 Allergy to other foods; Z79.01 Long term (current) use of anticoagulants; Z79.82 Long term (current) use of aspirin; Z79.899 Other long term (current) drug therapy
CPT/HCPCS: 36415; 36600; 71045; 80048; 80053; 80305; 80320; 81003; 82375; 82805; 83605; 83880; 84145; 84484; 85025; 87804; 93005; 94640; 96365; 96375; 96376; 99285; 99406; C1893; J0456; J1885; J1940; J1956; J2060; J2270; J2405; J2920; J2930; J7030; J7060; J7626; G0480

== ENCOUNTER 2019-05-27 12:26 | Emergency (ER) | payer MEDICAID ==
[~2019-05-27] VITALS: Ht 175.3 cm; Wt 95.0 kg
[~2019-05-27 12:26] MED LIST changes: +BENZ-16 MT; +CLON0.1T PO; -FLUT16SP15 BOTHNSTRLS; -FURO20TA4 MT; +FURO40TA5 PO; -METO-411 PO; +NICO-645 TP; +P20 MT; -PANT40SU PO; +PANT40TA4 PO; -RANO500T3 MT
[2019-05-27] MEDS ORDERED: SODIUM CHLORIDE 0.9% 1,000 ML IV ONE (13:08)
[2019-05-27] MEDS ORDERED: LORAZEPAM 1MG TABLET PO ONE (13:15)
[2019-05-27] MEDS ORDERED: ASPIRIN 81MG TABLET PO ONE (13:15)
[2019-05-27 13:31] LABS: BASOPHILS % 1.4 % (0.0-2.0); EOSINOPHILS % 0.3 % (0.0-5.0); HEMATOCRIT. 44.8 % (42.0-52.0); HEMOGLOBIN. 15.3 g/dL (14.0-18.0); LYMPHOCYTES % 32.9 % (20.0-50.0); MEAN CORPUSCULAR HEMOGLOBIN 32.4 pg (28.0-32.0); MEAN PLATELET VOLUME 9.4 fl (7.4-10.4); MONOCYTES % 10.6 % (2.0-8.0); NEUTROPHILS % 54.8 % (40.0-76.0); PLATELET 224 x1000/uL (130-400); RED BLOOD CELL COUNT 4.71 mill/uL (4.7-6.1); RED CELL DISTRIBUTION WIDTH 14.2 % (11.6-14.6)
[2019-05-27 14:01] LABS: *AMPHETAMINES SCREEN URINE NEGATIVE (NEGATIVE)
[2019-05-27 14:02] LABS: *BARBITURATES SCREEN URINE NEGATIVE (NEGATIVE); *BENZODIAZEPINES SCREEN URINE NEGATIVE (NEGATIVE)
[2019-05-27 14:03] LABS: METHADONE URINE SCREEN NEGATIVE (NEGATIVE)
[2019-05-27 14:04] LABS: CANNABINOID URINE SCREEN PRESUMTIVE POSITIVE (NEGATIVE); OPIATES URINE SCREEN PRESUMTIVE POSITIVE (NEGATIVE)
[2019-05-27 14:11] LABS: PHENCYCLIDINE URINE SCREEN NEGATIVE (NEGATIVE)
[2019-05-27 14:12] LABS: *COCAINE SCREEN URINE NEGATIVE (NEGATIVE)
[2019-05-27 14:56] LABS: CHLORIDE 109 mEq/L (98-107)
[2019-05-27 15:00] LABS: ETHANOL BLOOD < 10 mg/dL
[2019-05-27] MEDS ORDERED: IBUPROFEN 600MG TABLET PO ONE (16:30)
[2019-05-27 17:03] VITALS: BP 107/71
== END 2019-05-27 18:30 | disposition home or self-care (01) ==
LOC: ER 12:26 → CANBEDREQ 20:14
DX: R07.89 Other chest pain (principal); G40.909 Epilepsy, unspecified, not intractable, without status epilepticus; J44.9 Chronic obstructive pulmonary disease, unspecified; I25.10 Atherosclerotic heart disease of native coronary artery without angina pectoris; I50.9 Heart failure, unspecified; F12.10 Cannabis abuse, uncomplicated; F17.210 Nicotine dependence, cigarettes, uncomplicated; Z88.8 Allergy status to other drugs, medicaments and biological substances; Z98.61 Coronary angioplasty status; Z79.82 Long term (current) use of aspirin; Z91.018 Allergy to other foods
CPT/HCPCS: 36415; 71045; 80053; 80305; 80320; 83880; 84443; 84484; 85025; 93005; 99284; J7030; Z7610; G0480

== ENCOUNTER 2019-06-13 12:40 | Inpatient (IN) | payer MEDICAID ==
[~2019-06-13] VITALS: Ht 172.7 cm; Wt 91.9 kg
[2019-06-13] MEDS ORDERED: ASPIRIN 81MG TABLET PO ONE (13:30)
[2019-06-13] MEDS ORDERED: ONDANSETRON HCL 4MG/2ML INJ IV ONE (14:45)
[2019-06-13] MEDS ORDERED: MORPHINE SULFATE 4 MG/ML CPJ (NOT FOR IM USE) IV ONE (14:45)
[2019-06-13 14:47] LABS: BASOPHILS % 0.5 % (0.0-2.0); EOSINOPHILS % 0.3 % (0.0-5.0); HEMATOCRIT. 43.3 % (42.0-52.0); HEMOGLOBIN. 14.5 g/dL (14.0-18.0); MEAN CORPUSCULAR VOLUME 95.3 fL (80.0-94.0); MEAN PLATELET VOLUME 9.3 fl (7.4-10.4); MONOCYTES % 4.8 % (2.0-8.0); NEUTROPHILS % 64.4 % (40.0-76.0); PLATELET 192 x1000/uL (130-400); RED BLOOD CELL COUNT 4.54 mill/uL (4.7-6.1); RED CELL DISTRIBUTION WIDTH 15.6 % (11.6-14.6)
[2019-06-13 14:53] LABS: CHLORIDE 110 mEq/L (98-107)
[2019-06-13] MEDS: MORPHINE SULFATE 2 MG/ML CPJ (NOT FOR IM USE) IV NR ×2 (19:14→20:43)
[2019-06-13] MEDS ORDERED: POTASSIUM CHLORIDE 20MEQ TABLET SR PO NR (19:51)
[2019-06-13 20:00] VITALS: BP 121/78
[2019-06-14] MEDS: MORPHINE SULFATE 2 MG/ML CPJ (NOT FOR IM USE) IV PRN ×3 (01:10→21:31)
[2019-06-14] MEDS: DOCUSATE SODIUM 250MG CAPSULE PO SCH ×2 (06:44→17:00)
[2019-06-14] MEDS: ONDANSETRON HCL 4MG/2ML INJ IV PRN ×2 (06:44→21:30)
[2019-06-14 10:20] VITALS: BP 136/79
[2019-06-14] MEDS ORDERED: NITROGLYCERIN 0.4MG TABLET SL SL PRN (10:30)
[2019-06-14] MEDS ORDERED: ACETAMINOPHEN 325MG TABLET PO PRN (10:30)
[2019-06-14] MEDS ORDERED: ONDANSETRON HCL 4MG/2ML INJ IV PRN (10:30)
[2019-06-14] MEDS ORDERED: KETOROLAC 30MG/ML VIAL IV PRN (10:30)
[2019-06-14] MEDS ORDERED: IPRATROPIUM/ALBUTEROL 0.5-3(2.5)MG/3ML NEB HHN PRN (10:30)
[2019-06-14 12:39] LABS: BASOPHILS % 0.7 % (0.0-2.0); EOSINOPHILS % 0.7 % (0.0-5.0); HEMATOCRIT. 48.6 % (42.0-52.0); HEMOGLOBIN. 16.1 g/dL (14.0-18.0); LYMPHOCYTES % 32.5 % (20.0-50.0); MEAN CORPUSCULAR HEMOGLOBIN 31.9 pg (28.0-32.0); MEAN CORPUSCULAR VOLUME 96.2 fL (80.0-94.0); MEAN PLATELET VOLUME 9.6 fl (7.4-10.4); MONOCYTES % 11.7 % (2.0-8.0); NEUTROPHILS % 54.4 % (40.0-76.0); PLATELET 210 x1000/uL (130-400); RED BLOOD CELL COUNT 5.05 mill/uL (4.7-6.1); RED CELL DISTRIBUTION WIDTH 15.1 % (11.6-14.6)
[2019-06-14 12:55] LABS: CHLORIDE 109 mEq/L (98-107)
[2019-06-14] MEDS ORDERED: MORPHINE SULFATE 2 MG/ML CPJ (NOT FOR IM USE) IV NR (13:15)
[2019-06-14] MEDS: LOSARTAN POTASSIUM 25 MG TABLET PO SCH (13:29)
[2019-06-14] MEDS ORDERED: HYDROCODONE/ACETAMINOPHEN 5/325MG TABLET PO PRN (13:30)
[2019-06-14] MEDS: NITROGLYCERIN OINT 1GM/INCH UDPKT TD SCH ×2 (14:27→21:29)
[2019-06-14] MEDS ORDERED: APIXABAN 5 MG TABLET PO SCH (17:00)
[2019-06-14 20:00] VITALS: BP 121/78
[2019-06-14] MEDS: BUDESONIDE 0.5MG/2ML NEB HHN SCH (20:32)
[2019-06-14] MEDS: LEVETIRACETAM 500MG/5ML CUP PO SCH (21:29)
[2019-06-14] MEDS: CARVEDILOL 6.25 MG TABLET PO SCH (21:30)
[2019-06-14] MEDS: ZOLPIDEM TARTRATE 5MG TABLET PO PRN (22:57)
[2019-06-15] VITALS (8 sets, daily range): BP systolic 106–136; BP diastolic 46–85
[2019-06-15] MEDS: BUDESONIDE 0.5MG/2ML NEB HHN SCH (01:00)
[2019-06-15] MEDS: MORPHINE SULFATE 2 MG/ML CPJ (NOT FOR IM USE) IV PRN ×5 (02:53→21:29)
[2019-06-15] MEDS: ONDANSETRON HCL 4MG/2ML INJ IV PRN ×4 (03:02→21:39)
[2019-06-15] MEDS: NITROGLYCERIN OINT 1GM/INCH UDPKT TD SCH ×5 (05:15→21:06)
[2019-06-15] MEDS: CLOPIDOGREL 75MG TABLET PO SCH (08:52)
[2019-06-15] MEDS: LEVETIRACETAM 500MG/5ML CUP PO SCH ×2 (08:52→20:22)
[2019-06-15] MEDS: LOSARTAN POTASSIUM 25 MG TABLET PO SCH ×2 (08:52→08:56)
[2019-06-15] MEDS: DOCUSATE SODIUM 250MG CAPSULE PO SCH ×2 (08:52→17:00)
[2019-06-15] MEDS: FUROSEMIDE 40MG TABLET PO SCH (08:53)
[2019-06-15] MEDS: CARVEDILOL 6.25 MG TABLET PO SCH ×2 (08:53→20:23)
[2019-06-15] MEDS: ASPIRIN 81MG TABLET PO SCH (08:53)
[2019-06-15] MEDS ORDERED: HEPARIN SODIUM 1,000 UNIT/1ML VIAL IV ONE (11:54)
[2019-06-15 12:13] LABS: BASOPHILS % 0.7 % (0.0-2.0); EOSINOPHILS % 1.3 % (0.0-5.0); HEMATOCRIT. 47.2 % (42.0-52.0); HEMOGLOBIN. 15.6 g/dL (14.0-18.0); LYMPHOCYTES % 32.3 % (20.0-50.0); MEAN CORPUSCULAR HEMOGLOBIN 31.8 pg (28.0-32.0); MEAN CORPUSCULAR VOLUME 96.3 fL (80.0-94.0); MONOCYTES % 12.9 % (2.0-8.0); NEUTROPHILS % 52.8 % (40.0-76.0); RED CELL DISTRIBUTION WIDTH 15.2 % (11.6-14.6)
[2019-06-15 12:21] LABS: CHLORIDE 107 mEq/L (98-107)
[2019-06-15 13:40] LABS: PLATELET 191 x1000/uL (130-400)
[2019-06-15] MEDS ORDERED: IODIXANOL 320MG/ML 100 ML BOTTLE IV ONE (13:40)
[2019-06-15] MEDS ORDERED: LIDOCAINE HCL 1% 20ML VIAL (Pyxis) INJ ONE (13:40)
[2019-06-15] MEDS ORDERED: FENTANYL CITRATE/PF 50MCG/ML 2ML VIAL ONE (14:04)
[2019-06-15] MEDS ORDERED: MIDAZOLAM HCL 2 MG/2 ML VIAL ONE (14:04)
[2019-06-15] MEDS ORDERED: ATROPINE SULFATE 1MG/10ML SYR IV PRN (14:45)
[2019-06-15] MEDS ORDERED: ACETAMINOPHEN 325MG TABLET PO PRN (14:45)
[2019-06-15] MEDS: APIXABAN 5 MG TABLET PO SCH (17:21)
[2019-06-15] MEDS: ZOLPIDEM TARTRATE 5MG TABLET PO PRN (21:39)
[2019-06-16] VITALS (8 sets, daily range): BP systolic 101–136; BP diastolic 58–83
[2019-06-16] MEDS: MORPHINE SULFATE 2 MG/ML CPJ (NOT FOR IM USE) IV PRN ×3 (01:32→10:36)
[2019-06-16] MEDS: ONDANSETRON HCL 4MG/2ML INJ IV PRN ×4 (01:40→10:37)
[2019-06-16] MEDS: NITROGLYCERIN OINT 1GM/INCH UDPKT TD SCH ×2 (05:04→11:22)
[2019-06-16 06:41] LABS: BASOPHILS % 0.9 % (0.0-2.0); EOSINOPHILS % 2.1 % (0.0-5.0); HEMATOCRIT. 45.4 % (42.0-52.0); HEMOGLOBIN. 15.3 g/dL (14.0-18.0); LYMPHOCYTES % 34.3 % (20.0-50.0); MEAN CORPUSCULAR HEMOGLOBIN 32.2 pg (28.0-32.0); MEAN CORPUSCULAR VOLUME 95.4 fL (80.0-94.0); MONOCYTES % 13.1 % (2.0-8.0); NEUTROPHILS % 49.6 % (40.0-76.0); PLATELET 185 x1000/uL (130-400); RED BLOOD CELL COUNT 4.76 mill/uL (4.7-6.1)
[2019-06-16 06:43] LABS: CHLORIDE 107 mEq/L (98-107)
[2019-06-16] MEDS: BUDESONIDE 0.5MG/2ML NEB HHN SCH (07:49)
[2019-06-16] MEDS: CLOPIDOGREL 75MG TABLET PO SCH (08:49)
[2019-06-16] MEDS: LEVETIRACETAM 500MG/5ML CUP PO SCH (08:49)
[2019-06-16] MEDS: LOSARTAN POTASSIUM 25 MG TABLET PO SCH (08:49)
[2019-06-16] MEDS: APIXABAN 5 MG TABLET PO SCH (08:49)
[2019-06-16] MEDS: DOCUSATE SODIUM 250MG CAPSULE PO SCH (08:49)
[2019-06-16] MEDS: CARVEDILOL 6.25 MG TABLET PO SCH (08:49)
[2019-06-16] MEDS: FUROSEMIDE 40MG TABLET PO SCH (08:49)
[2019-06-16] MEDS: ASPIRIN 81MG TABLET PO SCH (08:50)
== END 2019-06-16 13:41 | disposition home or self-care (01) | DRG 190 ==
LOC: ER 12:40 → 5WST 15:52 → ENRESERV 06-14 07:24 → 7WST 06-14 22:49 → 3WST 06-15 14:51
PROVIDERS: ADMIT Internal Medicine; ATTEND Internal Medicine
PROC: 4A023N7 Measurement of Cardiac Sampling and Pressure, Left Heart, Percutaneous Approach (ICD-10-PCS; principal; 2019-06-15)
PROC: B2111ZZ Fluoroscopy of Multiple Coronary Arteries using Low Osmolar Contrast (ICD-10-PCS; 2019-06-15)
DX: I21.4 Non-ST elevation (NSTEMI) myocardial infarction (principal); I50.23 Acute on chronic systolic (congestive) heart failure; I11.0 Hypertensive heart disease with heart failure; E78.5 Hyperlipidemia, unspecified; E87.6 Hypokalemia; F17.210 Nicotine dependence, cigarettes, uncomplicated; G40.909 Epilepsy, unspecified, not intractable, without status epilepticus; I25.5 Ischemic cardiomyopathy; I25.10 Atherosclerotic heart disease of native coronary artery without angina pectoris; F15.90 Other stimulant use, unspecified, uncomplicated; K21.9 Gastro-esophageal reflux disease without esophagitis; J44.9 Chronic obstructive pulmonary disease, unspecified; Z79.01 Long term (current) use of anticoagulants; Z85.528 Personal history of other malignant neoplasm of kidney; Z95.5 Presence of coronary angioplasty implant and graft; Z82.3 Family history of stroke; Z82.49 Family history of ischemic heart disease and other diseases of the circulatory system; Z88.8 Allergy status to other drugs, medicaments and biological substances; Z91.018 Allergy to other foods; Z79.899 Other long term (current) drug therapy; Z79.82 Long term (current) use of aspirin; Z87.01 Personal history of pneumonia (recurrent)
CPT/HCPCS: 36415; 71045; 80048; 80053; 83880; 84484; 85025; 93005; 93306; 93454; 93971; 94640; 96375; 96376; 99285; C1760; C1769; C1887; C1893; J1644; J1885; J2250; J2270; J2405; J3010; J3490; J7626; Q9967

== ENCOUNTER 2019-07-29 00:17 | Emergency (ER) | payer MEDICAID ==
[~2019-07-29] VITALS: Ht 175.3 cm; Wt 96.6 kg
[2019-07-29 00:32] VITALS: BP 122/85
== END 2019-07-29 03:00 | disposition left against medical advice (07) ==
LOC: ER 00:17
DX: Z53.21 Procedure and treatment not carried out due to patient leaving prior to being seen by health care provider (principal)
CPT/HCPCS: 93005

== ENCOUNTER 2019-12-05 19:15 | Emergency (ER) | payer MEDICAID ==
[~2019-12-05] VITALS: Ht 175.3 cm; Wt 88.0 kg
[~2019-12-05 19:15] MED LIST changes: +ALBU6.7H9 INH
[2019-12-05 20:52] LABS: BASOPHILS % 0.5 % (0.0-2.0); EOSINOPHILS % 0.1 % (0.0-5.0); HEMOGLOBIN. 15.4 g/dL (14.0-18.0); LYMPHOCYTES % 22.1 % (20.0-50.0); MEAN CORPUSCULAR VOLUME 96.6 fL (80.0-94.0); MEAN PLATELET VOLUME 10.3 fl (7.4-10.4); MONOCYTES % 7.2 % (2.0-8.0); NEUTROPHILS % 70.1 % (40.0-76.0); PLATELET 180 x1000/uL (130-400); RED BLOOD CELL COUNT 4.66 mill/uL (4.7-6.1); RED CELL DISTRIBUTION WIDTH 14.9 % (11.6-14.6)
[2019-12-05 20:58] LABS: CHLORIDE 108 mEq/L (98-107)
[2019-12-05] MEDS ORDERED: ASPIRIN 81MG TABLET PO ONE (21:30)
[2019-12-06 02:35] VITALS: BP 136/74
== END 2019-12-06 02:36 | disposition home or self-care (01) ==
LOC: ER 19:33
DX: R07.89 Other chest pain (principal); R06.00 Dyspnea, unspecified; I11.9 Hypertensive heart disease without heart failure; E78.00 Pure hypercholesterolemia, unspecified; G40.909 Epilepsy, unspecified, not intractable, without status epilepticus; I25.2 Old myocardial infarction; I25.10 Atherosclerotic heart disease of native coronary artery without angina pectoris; Z86.718 Personal history of other venous thrombosis and embolism; Z79.01 Long term (current) use of anticoagulants; Z88.8 Allergy status to other drugs, medicaments and biological substances; Z91.018 Allergy to other foods
CPT/HCPCS: 36415; 71045; 80053; 83880; 84484; 85025; 93005; 99285; Z7610

== ENCOUNTER 2019-12-23 15:05 | Inpatient (IN) | payer MEDICAID ==
[~2019-12-23] VITALS: Ht 175.3 cm; Wt 90.0 kg
[2019-12-23] MEDS ORDERED: NITROGLYCERIN OINT 1GM/INCH UDPKT TD ONE (16:00)
[2019-12-23 16:31] LABS: BASOPHILS % 0.6 % (0.0-2.0); EOSINOPHILS % 0.5 % (0.0-5.0); HEMATOCRIT. 50.9 % (42.0-52.0); HEMOGLOBIN. 17.2 g/dL (14.0-18.0); LYMPHOCYTES % 23.5 % (20.0-50.0); MEAN CORPUSCULAR HEMOGLOBIN 32.4 pg (28.0-32.0); MEAN CORPUSCULAR VOLUME 95.6 fL (80.0-94.0); MEAN PLATELET VOLUME 8.9 fl (7.4-10.4); NEUTROPHILS % 63.4 % (40.0-76.0); PLATELET 298 x1000/uL (130-400); RED BLOOD CELL COUNT 5.32 mill/uL (4.7-6.1); RED CELL DISTRIBUTION WIDTH 14.7 % (11.6-14.6)
[2019-12-23 16:34] LABS: CHLORIDE 106 mEq/L (98-107)
[2019-12-23 16:37] LABS: INR 1.1; PROTHROMBIN TIME 11.4 sec (9.6-11.0)
[2019-12-23] MEDS ORDERED: ONDANSETRON HCL 4MG/2ML INJ IV STA (17:57)
[2019-12-23] MEDS ORDERED: MORPHINE SULFATE 4 MG/ML CPJ (NOT FOR IM USE) IV STA (17:57)
[2019-12-23] MEDS ORDERED: ACETAMINOPHEN 325MG TABLET PO PRN (20:15)
[2019-12-23] MEDS ORDERED: CLONIDINE 0.1MG TABLET PO PRN (20:15)
[2019-12-23] MEDS ORDERED: DIPHENHYDRAMINE 50MG/ML VIAL IV PRN (20:15)
[2019-12-23 20:36] LABS: PHOSPHORUS 3.2 mg/dL (2.5-4.9)
[2019-12-23 22:35] VITALS: BP 119/82
[2019-12-23 22:40] VITALS: BP 119/82
[2019-12-23 23:48] LABS: CREATINE KINASE 54 IU/L (39-308)
[2019-12-23 23:49] LABS: CREATINE KINASE MB FRACTION < 1.0 ng/mL (0.5-3.6)
[2019-12-23] MEDS: MORPHINE SULFATE 2 MG/ML CPJ (NOT FOR IM USE) IV PRN (23:56)
[2019-12-23] MEDS: ONDANSETRON HCL 4MG/2ML INJ IV PRN (23:57)
[2019-12-24] VITALS: BP 119/82
[2019-12-24] MEDS ORDERED: ATROV INH (01:21)
[2019-12-24] MEDS ORDERED: APIX5TAB PO (01:21)
[2019-12-24] MEDS ORDERED: MORP15TA54 PO (01:21)
[2019-12-24] MEDS ORDERED: AMLO5TAB88 PO (01:21)
[2019-12-24] MEDS ORDERED: RANO10003 PO (01:21)
[2019-12-24 04:00] VITALS: BP 97/67
[2019-12-24 05:08] LABS: HEMOGLOBIN. 16.1 g/dL (14.0-18.0); MEAN CORPUSCULAR HEMOGLOBIN 32.2 pg (28.0-32.0); MEAN CORPUSCULAR VOLUME 96.2 fL (80.0-94.0); MEAN PLATELET VOLUME 9.4 fl (7.4-10.4); PLATELET 276 x1000/uL (130-400); RED BLOOD CELL COUNT 4.99 mill/uL (4.7-6.1); RED CELL DISTRIBUTION WIDTH 14.6 % (11.6-14.6)
[2019-12-24 05:31] LABS: CHLORIDE 106 mEq/L (98-107)
[2019-12-24 05:38] LABS: LDL CHOLESTEROL 79 mg/dL (5-100)
[2019-12-24 05:39] LABS: CREATINE KINASE 57 IU/L (39-308); HDL CHOLESTEROL 34 mg/dL (40-59)
[2019-12-24 05:42] LABS: CREATINE KINASE MB FRACTION < 1.0 ng/mL (0.5-3.6)
[2019-12-24] MEDS: MORPHINE SULFATE 2 MG/ML CPJ (NOT FOR IM USE) IV PRN ×4 (06:52→22:29)
[2019-12-24] MEDS: ONDANSETRON HCL 4MG/2ML INJ IV PRN ×3 (06:53→19:40)
[2019-12-24 08:59] VITALS: BP 96/64
[2019-12-24] MEDS ORDERED: HEPARIN 5000 UNITS/ML VIAL SUBCUT SCH (09:00)
[2019-12-24] MEDS: ASPIRIN 81MG EC TABLET PO SCH (10:21)
[2019-12-24] MEDS ORDERED: LORAZEPAM 2MG/ML CPJ IM PRN (11:15)
[2019-12-24] MEDS ORDERED: LEVETIRACETAM 500MG TABLET PO SCH ×2 (11:15→12:00)
[2019-12-24] MEDS ORDERED: LORAZEPAM 2MG/ML CPJ IV PRN (11:30)
[2019-12-24] MEDS ORDERED: DILANTIN PO (11:32)
[2019-12-24] MEDS ORDERED: COR3 PO (11:32)
[2019-12-24 12:22] VITALS: BP 124/88
[2019-12-24] MEDS: LEVETIRACETAM 500MG TABLET PO SCH ×2 (12:29→21:17)
[2019-12-24] MEDS: PANTOPRAZOLE 40MG DR TABLET PO SCH (13:38)
[2019-12-24] MEDS: PHENYTOIN SODIUM EXTENDED 100MG CAPSULE PO SCH ×2 (13:38→21:17)
[2019-12-24] MEDS: AMLODIPINE 5MG TABLET PO SCH (13:38)
[2019-12-24 16:29] VITALS: BP 102/64
[2019-12-24] MEDS ORDERED: APIXABAN 5 MG TABLET PO SCH (17:00)
[2019-12-24] MEDS: CARVEDILOL 3.125 MG TABLET PO SCH (17:52)
[2019-12-24] MEDS: APIXABAN 5 MG TABLET PO SCH (17:52)
[2019-12-24 19:03] LABS: CLARITY URINE CLEAR (CLEAR); COLOR URINE YELLOW (YELLOW); KETONES URINE NEGATIVE (NEGATIVE); LEUKOCYTE ESTERASE URINE NEGATIVE (NEGATIVE); NITRITE URINE NEGATIVE (NEGATIVE); OCCULT BLOOD URINE NEGATIVE (NEGATIVE); PROTEIN URINE NEGATIVE (NEGATIVE); SPECIFIC GRAVITY URINE 1.032 (1.005-1.030)
[2019-12-24 19:57] LABS: *AMPHETAMINES SCREEN URINE NEGATIVE (NEGATIVE); *BARBITURATES SCREEN URINE NEGATIVE (NEGATIVE); *BENZODIAZEPINES SCREEN URINE NEGATIVE (NEGATIVE); *COCAINE SCREEN URINE NEGATIVE (NEGATIVE); METHADONE URINE SCREEN NEGATIVE (NEGATIVE); OPIATES URINE SCREEN PRESUMTIVE POSITIVE (NEGATIVE)
[2019-12-24 19:57] LABS: PLATELET ESTIMATE NORMAL
[2019-12-24 19:58] LABS: CANNABINOID URINE SCREEN PRESUMTIVE POSITIVE (NEGATIVE); PHENCYCLIDINE URINE SCREEN NEGATIVE (NEGATIVE)
[2019-12-24 20:30] VITALS: BP 104/68
[2019-12-24] MEDS: RANOLAZINE 500 MG TAB.SR.12H PO SCH (21:17)
[2019-12-24] MEDS: ATORVASTATIN CALCIUM 40MG TABLET PO SCH (21:25)
[2019-12-25 00:30] VITALS: BP 112/70
[2019-12-25 04:30] VITALS: BP 94/58
[2019-12-25] MEDS: ONDANSETRON HCL 4MG/2ML INJ IV PRN ×4 (04:36→23:08)
[2019-12-25] MEDS: MORPHINE SULFATE 2 MG/ML CPJ (NOT FOR IM USE) IV PRN ×5 (04:37→23:09)
[2019-12-25] MEDS: PHENYTOIN SODIUM EXTENDED 100MG CAPSULE PO SCH ×3 (06:37→21:13)
[2019-12-25 08:00] VITALS: BP 108/68
[2019-12-25] MEDS: APIXABAN 5 MG TABLET PO SCH ×2 (08:07→16:43)
[2019-12-25] MEDS: ASPIRIN 81MG EC TABLET PO SCH (08:07)
[2019-12-25] MEDS: PANTOPRAZOLE 40MG DR TABLET PO SCH (08:07)
[2019-12-25] MEDS: CARVEDILOL 3.125 MG TABLET PO SCH ×2 (08:08→16:43)
[2019-12-25] MEDS: AMLODIPINE 5MG TABLET PO SCH (08:08)
[2019-12-25] MEDS: LEVETIRACETAM 500MG TABLET PO SCH ×2 (08:08→21:12)
[2019-12-25] MEDS: RANOLAZINE 500 MG TAB.SR.12H PO SCH ×2 (08:08→21:12)
[2019-12-25 12:00] VITALS: BP 107/71
[2019-12-25 16:00] VITALS: BP 105/77
[2019-12-25 20:00] VITALS: BP 128/85
[2019-12-25] MEDS: ATORVASTATIN CALCIUM 40MG TABLET PO SCH (21:12)
[2019-12-25] MEDS: FAMOTIDINE 20MG TABLET PO SCH (21:13)
[2019-12-26] VITALS: BP 115/79
[2019-12-26 04:00] VITALS: BP 102/69
[2019-12-26] MEDS: PHENYTOIN SODIUM EXTENDED 100MG CAPSULE PO SCH (06:30)
[2019-12-26 07:03] LABS: CHLORIDE 108 mEq/L (98-107)
[2019-12-26 07:20] LABS: BASOPHILS % 1.1 % (0.0-2.0); EOSINOPHILS % 1.4 % (0.0-5.0); HEMATOCRIT. 43.2 % (42.0-52.0); HEMOGLOBIN. 14.4 g/dL (14.0-18.0); LYMPHOCYTES % 31.5 % (20.0-50.0); MEAN CORPUSCULAR HEMOGLOBIN 32.2 pg (28.0-32.0); MEAN CORPUSCULAR VOLUME 96.7 fL (80.0-94.0); MEAN PLATELET VOLUME 9.1 fl (7.4-10.4); MONOCYTES % 14.6 % (2.0-8.0); NEUTROPHILS % 51.4 % (40.0-76.0); PLATELET 207 x1000/uL (130-400); RED BLOOD CELL COUNT 4.47 mill/uL (4.7-6.1); RED CELL DISTRIBUTION WIDTH 14.4 % (11.6-14.6)
[2019-12-26 08:17] VITALS: BP 111/75
[2019-12-26] MEDS: ONDANSETRON HCL 4MG/2ML INJ IV PRN (08:58)
[2019-12-26] MEDS: AMLODIPINE 5MG TABLET PO SCH (08:59)
[2019-12-26] MEDS: FAMOTIDINE 20MG TABLET PO SCH (08:59)
[2019-12-26] MEDS: CARVEDILOL 3.125 MG TABLET PO SCH (08:59)
[2019-12-26] MEDS: ASPIRIN 81MG EC TABLET PO SCH (08:59)
[2019-12-26] MEDS: LEVETIRACETAM 500MG TABLET PO SCH (08:59)
[2019-12-26] MEDS: MORPHINE SULFATE 2 MG/ML CPJ (NOT FOR IM USE) IV PRN (08:59)
[2019-12-26] MEDS: RANOLAZINE 500 MG TAB.SR.12H PO SCH (09:02)
[2019-12-26] MEDS: APIXABAN 5 MG TABLET PO SCH (09:03)
[2019-12-26 11:50] VITALS: BP 113/73
[2019-12-26 12:00] VITALS: BP 113/73
== END 2019-12-26 15:01 | disposition home or self-care (01) | DRG 198 ==
LOC: ER 15:11 → EDBEDREQ 19:13 → ENRESERV 21:30 → 6WST 23:43
PROVIDERS: ADMIT Internal Medicine; ATTEND Internal Medicine
DX: I24.9 Acute ischemic heart disease, unspecified (principal); I25.5 Ischemic cardiomyopathy; I25.10 Atherosclerotic heart disease of native coronary artery without angina pectoris; N17.0 Acute kidney failure with tubular necrosis; I11.0 Hypertensive heart disease with heart failure; I50.9 Heart failure, unspecified; I25.82 Chronic total occlusion of coronary artery; J44.9 Chronic obstructive pulmonary disease, unspecified; I25.2 Old myocardial infarction; E78.5 Hyperlipidemia, unspecified; F17.210 Nicotine dependence, cigarettes, uncomplicated; Z79.01 Long term (current) use of anticoagulants; Z95.5 Presence of coronary angioplasty implant and graft; Z82.49 Family history of ischemic heart disease and other diseases of the circulatory system; Z79.02 Long term (current) use of antithrombotics/antiplatelets; Z79.82 Long term (current) use of aspirin; Z79.899 Other long term (current) drug therapy; Z88.8 Allergy status to other drugs, medicaments and biological substances; Z91.018 Allergy to other foods; Z86.718 Personal history of other venous thrombosis and embolism
CPT/HCPCS: 36415; 71045; 80048; 80053; 80061; 80305; 81003; 82550; 82553; 83735; 83880; 84100; 84443; 84484; 85025; 93005; 93970; 99285; J1644; J2270; J2405

== ENCOUNTER 2020-01-20 22:15 | Emergency (ER) | payer MEDICAID ==
[~2020-01-20] VITALS: Ht 175.3 cm; Wt 90.5 kg
[~2020-01-20 22:15] MED LIST changes: +AMLO5TAB88 PO; +APIX5TAB PO; +ATROV INH; -BENZ-16 MT; -CLON0.1T PO; -CLOP75TA4 PO; +COR3 PO; +DILANTIN PO; -FURO40TA5 PO; -METO-396 PO; -NICO-645 TP; -NITR0.4T49 SL; -P20 MT; +RANO10003 PO; -RIVA20TA PO; -TIOT18CA3 INH
[2020-01-21 04:17] LABS: BASOPHILS % 0.4 % (0.0-2.0); EOSINOPHILS % 0.2 % (0.0-5.0); HEMATOCRIT. 55.1 % (42.0-52.0); HEMOGLOBIN. 18.5 g/dL (14.0-18.0); LYMPHOCYTES % 22.8 % (20.0-50.0); MEAN CORPUSCULAR HEMOGLOBIN 32.3 pg (28.0-32.0); MEAN CORPUSCULAR VOLUME 96.3 fL (80.0-94.0); MEAN PLATELET VOLUME 9.5 fl (7.4-10.4); MONOCYTES % 8.2 % (2.0-8.0); NEUTROPHILS % 68.4 % (40.0-76.0); PLATELET 234 x1000/uL (130-400); RED BLOOD CELL COUNT 5.73 mill/uL (4.7-6.1); RED CELL DISTRIBUTION WIDTH 15.1 % (11.6-14.6)
[2020-01-21 04:25] LABS: CHLORIDE 102 mEq/L (98-107)
[2020-01-21] MEDS ORDERED: TRAMADOL 50MG TABLET PO NR (05:15)
[2020-01-21] MEDS ORDERED: IBUPROFEN 600MG TABLET PO NR (05:15)
[2020-01-21 06:04] VITALS: BP 113/78
== END 2020-01-21 06:20 | disposition left against medical advice (07) ==
LOC: ER 22:23
DX: I25.10 Atherosclerotic heart disease of native coronary artery without angina pectoris (principal); I11.0 Hypertensive heart disease with heart failure; I50.9 Heart failure, unspecified; E78.00 Pure hypercholesterolemia, unspecified; Z88.6 Allergy status to analgesic agent; Z88.8 Allergy status to other drugs, medicaments and biological substances; Z79.899 Other long term (current) drug therapy; Z79.82 Long term (current) use of aspirin
CPT/HCPCS: 36415; 71045; 80053; 83880; 84484; 85025; 93005; 99285

== ENCOUNTER 2020-01-22 17:33 | Inpatient (IN) | payer MEDICAID ==
[~2020-01-22] VITALS: Ht 175.3 cm; Wt 90.3 kg
[2020-01-22] MEDS ORDERED: SODIUM CHLORIDE 0.9% 250 ML IV ONE (18:15)
[2020-01-22 18:50] LABS: BASOPHILS % 0.6 % (0.0-2.0); EOSINOPHILS % 0.1 % (0.0-5.0); HEMATOCRIT. 47.8 % (42.0-52.0); HEMOGLOBIN. 16.2 g/dL (14.0-18.0); LYMPHOCYTES % 23.6 % (20.0-50.0); MEAN CORPUSCULAR HEMOGLOBIN 32.3 pg (28.0-32.0); MEAN PLATELET VOLUME 10.1 fl (7.4-10.4); MONOCYTES % 9.1 % (2.0-8.0); NEUTROPHILS % 66.6 % (40.0-76.0); PLATELET 210 x1000/uL (130-400); RED BLOOD CELL COUNT 5.03 mill/uL (4.7-6.1); RED CELL DISTRIBUTION WIDTH 14.9 % (11.6-14.6)
[2020-01-22 18:55] LABS: CHLORIDE 108 mEq/L (98-107)
[2020-01-22] MEDS ORDERED: KETOROLAC 30MG/ML VIAL IV ONE (19:00)
[2020-01-22] MEDS ORDERED: ONDANSETRON HCL 4MG/2ML INJ IV ONE ×2 (19:00)
[2020-01-22 20:41] LABS: *AMPHETAMINES SCREEN URINE NEGATIVE (NEGATIVE); *BARBITURATES SCREEN URINE NEGATIVE (NEGATIVE); *BENZODIAZEPINES SCREEN URINE NEGATIVE (NEGATIVE); *COCAINE SCREEN URINE NEGATIVE (NEGATIVE); CANNABINOID URINE SCREEN PRESUMTIVE POSITIVE (NEGATIVE)
[2020-01-22 20:42] LABS: METHADONE URINE SCREEN NEGATIVE (NEGATIVE); PHENCYCLIDINE URINE SCREEN NEGATIVE (NEGATIVE)
[2020-01-22 20:43] LABS: OPIATES URINE SCREEN PRESUMTIVE POSITIVE (NEGATIVE)
[2020-01-22 23:40] VITALS: BP 94/60
[2020-01-23] MEDS ORDERED: ONDANSETRON HCL 4MG/2ML INJ IV PRN (00:30)
[2020-01-23] MEDS ORDERED: MORPHINE SULFATE MT PRN (00:30)
[2020-01-23] MEDS ORDERED: MORP15TA67 MT (00:41)
[2020-01-23] MEDS: MORPHINE SULFATE 2 MG/ML CPJ (NOT FOR IM USE) IV PRN ×2 (01:47→05:44)
[2020-01-23 02:49] VITALS: BP 94/60
[2020-01-23 04:00] VITALS: BP 120/77
[2020-01-23] MEDS ORDERED: OMEPRAZOLE 20MG CAPSULE EXTENDED RELEASE PO SCH (07:10)
[2020-01-23 08:00] VITALS: BP 115/71
[2020-01-23] MEDS ORDERED: ASPIRIN 81MG EC TABLET PO SCH (09:00)
[2020-01-23] MEDS ORDERED: APIXABAN 5 MG TABLET PO SCH (09:00)
[2020-01-23] MEDS ORDERED: LEVETIRACETAM 500MG TABLET PO SCH (09:00)
[2020-01-23] MEDS ORDERED: METOPROLOL TARTRATE 25MG TABLET PO SCH (09:00)
[2020-01-23] MEDS ORDERED: LISINOPRIL 5MG TABLET PO SCH (09:00)
[2020-01-23] MEDS ORDERED: TRAMADOL 50MG TABLET PO PRN (09:00)
[2020-01-23] MEDS ORDERED: KETOROLAC 30MG/ML VIAL IV PRN (09:00)
== END 2020-01-23 09:45 | disposition left against medical advice (07) | DRG 194 ==
LOC: ER 17:33 → 8WST 21:13 → ENRESERV 21:47 → 8WST 01-23 05:25
PROVIDERS: ADMIT Internal Medicine; ATTEND Internal Medicine
DX: I11.0 Hypertensive heart disease with heart failure (principal); M94.0 Chondrocostal junction syndrome [Tietze]; I24.9 Acute ischemic heart disease, unspecified; Z53.29 Procedure and treatment not carried out because of patient's decision for other reasons; I50.23 Acute on chronic systolic (congestive) heart failure; I25.10 Atherosclerotic heart disease of native coronary artery without angina pectoris; J44.9 Chronic obstructive pulmonary disease, unspecified; Z95.5 Presence of coronary angioplasty implant and graft; Z88.6 Allergy status to analgesic agent; Z88.8 Allergy status to other drugs, medicaments and biological substances; Z91.018 Allergy to other foods; Z79.82 Long term (current) use of aspirin; Z79.899 Other long term (current) drug therapy; E87.5 Hyperkalemia; E78.5 Hyperlipidemia, unspecified; N17.0 Acute kidney failure with tubular necrosis; F12.90 Cannabis use, unspecified, uncomplicated
CPT/HCPCS: 36415; 71045; 80053; 80061; 80305; 80320; 83880; 84484; 85025; 93005; 99285; J1885; J2270; J2405; J7050; G0480

== ENCOUNTER 2020-05-19 10:52 | Inpatient (IN) | payer MEDICAID ==
[~2020-05-19] VITALS: Ht 180.3 cm; Wt 90.4 kg
[~2020-05-19 10:52] MED LIST changes: +MORP15TA67 MT; -PANT40TA4 PO; +PANT40TA51 PO
[2020-05-19] MEDS ORDERED: MORPHINE SULFATE 4 MG/ML CPJ (NOT FOR IM USE) IV ONE (11:45)
[2020-05-19 11:55] LABS: BASOPHILS % 0.6 % (0.0-2.0); EOSINOPHILS % 0.4 % (0.0-5.0); HEMATOCRIT. 47.6 % (42.0-52.0); HEMOGLOBIN. 15.7 g/dL (14.0-18.0); LYMPHOCYTES % 31.3 % (20.0-50.0); MEAN CORPUSCULAR HEMOGLOBIN 31.4 pg (28.0-32.0); MEAN CORPUSCULAR VOLUME 94.9 fL (80.0-94.0); MEAN PLATELET VOLUME 8.8 fl (7.4-10.4); MONOCYTES % 8.4 % (2.0-8.0); NEUTROPHILS % 59.3 % (40.0-76.0); PLATELET 225 x1000/uL (130-400); RED BLOOD CELL COUNT 5.01 mill/uL (4.7-6.1)
[2020-05-19 12:00] LABS: CHLORIDE 111 mEq/L (98-107)
[2020-05-19] MEDS ORDERED: ONDANSETRON HCL 4MG/2ML INJ IV ONE (13:15)
[2020-05-19] MEDS ORDERED: ACETAMINOPHEN 325MG TABLET PO PRN ×2 (15:00)
[2020-05-19] MEDS ORDERED: GUAIFENESIN 200MG/10ML SUGAR FREE UDC PO PRN (15:00)
[2020-05-19] MEDS ORDERED: ENOXAPARIN 40MG/0.4ML SYR SUBCUT SCH (15:00)
[2020-05-19] MEDS ORDERED: NITROGLYCERIN 0.4MG TABLET SL SL PRN (15:00)
[2020-05-19] MEDS ORDERED: NA PHOS,M-B/NA PHOS,DI-BA ENEMA 118ML PR PRN (15:00)
[2020-05-19] MEDS ORDERED: ONDANSETRON HCL 4MG/2ML INJ IV PRN (15:00)
[2020-05-19] MEDS ORDERED: DOCUSATE SODIUM 100MG CAPSULE PO PRN (15:00)
[2020-05-19] MEDS ORDERED: MAGNESIUM/ALUMINUM HYDROXIDE/SIMETHICONE 30ML UDC PO PRN (15:00)
[2020-05-19] MEDS ORDERED: ZOLPIDEM TARTRATE 5MG TABLET PO PRN (15:00)
[2020-05-19] MEDS ORDERED: KETOROLAC 15MG/ML VIAL IV PRN (15:00)
[2020-05-19] MEDS ORDERED: CLONIDINE 0.1MG TABLET PO PRN (15:00)
[2020-05-19] MEDS: CARVEDILOL 3.125 MG TABLET PO SCH (19:57)
[2020-05-19] MEDS: APIXABAN 5 MG TABLET PO SCH (19:58)
[2020-05-19 22:00] VITALS: BP 125/79
[2020-05-19] MEDS: FAMOTIDINE 20MG TABLET PO SCH (23:05)
[2020-05-20] VITALS: BP 107/68
[2020-05-20 04:00] VITALS: BP 131/74
[2020-05-20] MEDS: APIXABAN 5 MG TABLET PO SCH (07:14)
[2020-05-20] MEDS: CARVEDILOL 3.125 MG TABLET PO SCH (07:15)
[2020-05-20 08:00] VITALS: BP 124/78
[2020-05-20] MEDS ORDERED: ASPIRIN 81MG EC TABLET PO SCH (09:00)
[2020-05-20] MEDS ORDERED: LEVETIRACETAM 500MG TABLET PO SCH (09:00)
[2020-05-20] MEDS: FAMOTIDINE 20MG TABLET PO SCH (09:00)
== END 2020-05-20 09:40 | disposition left against medical advice (07) | DRG 198 ==
LOC: ER 11:01 → 5WST 14:29 → ENRESERV 20:11
PROVIDERS: ADMIT Internal Medicine; ATTEND Internal Medicine
DX: R07.89 Other chest pain (principal); J44.9 Chronic obstructive pulmonary disease, unspecified; E78.00 Pure hypercholesterolemia, unspecified; G40.909 Epilepsy, unspecified, not intractable, without status epilepticus; I50.9 Heart failure, unspecified; I11.0 Hypertensive heart disease with heart failure; F12.10 Cannabis abuse, uncomplicated; F17.210 Nicotine dependence, cigarettes, uncomplicated; I25.2 Old myocardial infarction; Z88.8 Allergy status to other drugs, medicaments and biological substances; Z88.5 Allergy status to narcotic agent; Z91.010 Allergy to peanuts; Z79.01 Long term (current) use of anticoagulants; Z79.899 Other long term (current) drug therapy; Z79.82 Long term (current) use of aspirin; Z76.5 Malingerer [conscious simulation]; Z86.79 Personal history of other diseases of the circulatory system; I48.0 Paroxysmal atrial fibrillation
CPT/HCPCS: 36415; 71045; 80053; 80061; 80185; 82550; 82553; 83036; 83880; 84484; 85025; 93005; 99285; J1885; J2270; J2405

== ENCOUNTER 2020-07-06 22:54 | Emergency (ER) | payer MEDICAID ==
[~2020-07-06] VITALS: Ht 175.3 cm; Wt 91.0 kg
[2020-07-06] MEDS ORDERED: ONDANSETRON HCL 4MG/2ML INJ IV STA (23:13)
[2020-07-06] MEDS ORDERED: MORPHINE SULFATE 4 MG/ML CPJ (NOT FOR IM USE) IV STA (23:13)
[2020-07-06] MEDS ORDERED: ASPIRIN 81MG TABLET PO ONE (23:15)
[2020-07-06 23:54] LABS: BASOPHILS % 0.6 % (0.0-2.0); EOSINOPHILS % 1.2 % (0.0-5.0); HEMATOCRIT. 42.6 % (42.0-52.0); HEMOGLOBIN. 14.3 g/dL (14.0-18.0); LYMPHOCYTES % 31.4 % (20.0-50.0); MEAN CORPUSCULAR HEMOGLOBIN 32.1 pg (28.0-32.0); MEAN CORPUSCULAR VOLUME 95.3 fL (80.0-94.0); MEAN PLATELET VOLUME 9.1 fl (7.4-10.4); MONOCYTES % 7.8 % (2.0-8.0); PLATELET 176 x1000/uL (130-400); RED BLOOD CELL COUNT 4.47 mill/uL (4.7-6.1); RED CELL DISTRIBUTION WIDTH 16.1 % (11.6-14.6)
[2020-07-06 23:55] LABS: CHLORIDE 116 mEq/L (98-107)
[2020-07-06 23:58] LABS: ETHANOL BLOOD 203 mg/dL
[2020-07-07 00:39] LABS: *AMPHETAMINES SCREEN URINE NEGATIVE (NEGATIVE); *COCAINE SCREEN URINE NEGATIVE (NEGATIVE); CANNABINOID URINE SCREEN PRESUMTIVE POSITIVE (NEGATIVE); METHADONE URINE SCREEN NEGATIVE (NEGATIVE); OPIATES URINE SCREEN NEGATIVE (NEGATIVE); PHENCYCLIDINE URINE SCREEN NEGATIVE (NEGATIVE)
[2020-07-07 00:40] LABS: *BARBITURATES SCREEN URINE NEGATIVE (NEGATIVE); *BENZODIAZEPINES SCREEN URINE NEGATIVE (NEGATIVE)
[2020-07-07 02:30] VITALS: BP 105/61
== END 2020-07-07 03:00 | disposition home or self-care (01) ==
LOC: ER 23:26
DX: R07.89 Other chest pain (principal); F10.129 Alcohol abuse with intoxication, unspecified; Y90.7 Blood alcohol level of 200-239 mg/100 ml; F12.10 Cannabis abuse, uncomplicated; I11.0 Hypertensive heart disease with heart failure; I50.9 Heart failure, unspecified; J45.909 Unspecified asthma, uncomplicated; Z79.899 Other long term (current) drug therapy
CPT/HCPCS: 36415; 71045; 80053; 80305; 80320; 83880; 84484; 85025; 93005; 96374; 96375; 99285; J2270; J2405; Z7610; G0480

== ENCOUNTER 2020-10-02 16:52 | Emergency (ER) | payer MEDICAID ==
[~2020-10-02] VITALS: Ht 175.3 cm; Wt 81.0 kg
[~2020-10-02 16:52] MED LIST changes: -DILANTIN PO; +FURO-151 PO; -MORP15TA67 MT
[2020-10-02 16:56] VITALS: BP 123/81
[2020-10-02 18:30] LABS: CLARITY URINE CLEAR (CLEAR); COLOR URINE YELLOW (YELLOW); KETONES URINE TRACE (NEGATIVE); LEUKOCYTE ESTERASE URINE NEGATIVE (NEGATIVE); NITRITE URINE NEGATIVE (NEGATIVE); OCCULT BLOOD URINE NEGATIVE (NEGATIVE); PROTEIN URINE NEGATIVE (NEGATIVE); SPECIFIC GRAVITY URINE 1.027 (1.005-1.030)
== END 2020-10-02 20:30 | disposition left against medical advice (07) ==
LOC: ER 16:52
DX: Z53.21 Procedure and treatment not carried out due to patient leaving prior to being seen by health care provider (principal); R07.9 Chest pain, unspecified
CPT/HCPCS: 81003; 93005

== ENCOUNTER 2020-12-27 17:19 | Emergency (ER) | payer MEDICAID ==
[~2020-12-27] VITALS: Ht 175.3 cm; Wt 91.0 kg
[~2020-12-27 17:19] MED LIST changes: +CLOP75TA33 PO; +LOSA25TA26 PO; +METO-385 PO
[2020-12-27 17:53] VITALS: BP 111/69
== END 2020-12-27 20:00 | disposition left against medical advice (07) ==
LOC: ER 17:19
DX: Z53.21 Procedure and treatment not carried out due to patient leaving prior to being seen by health care provider (principal)
CPT/HCPCS: 93005

== ENCOUNTER 2024-03-11 11:42 | Emergency (ER) | payer MEDICAID ==
[~2024-03-11] VITALS: Ht 177.8 cm; Wt 73.0 kg
[~2024-03-11 11:42] MED LIST changes: +ALBU6.7H3 INH; -ALBU6.7H9 INH; +NITR0.4T49 SL
[2024-03-11 11:43] VITALS: TEMP 98.2; O2SAT 98
[2024-03-11] MEDS: LEVETIRACETAM 1000MG PREMIX 100 ML IV ONE (12:15)
[2024-03-11 13:10] LABS: BASOPHILS % 1.1 % (0.0-2.0); DIFFERENTIAL COMMENT 0; EOSINOPHILS % 0.1 % (0.0-5.0); HEMATOCRIT. 42.8 % (42.0-52.0); HEMOGLOBIN. 13.9 g/dL (14.0-18.0); LYMPHOCYTES % 34.1 % (20.0-50.0); MEAN CORPUSCULAR HEMOGLOBIN 34.1 pg (28.0-32.0); MEAN CORPUSCULAR HGB CONC 32.5 g/dL (31.0-37.0); MEAN CORPUSCULAR VOLUME 105.1 fL (80.0-94.0); MEAN PLATELET VOLUME 9.3 fl (7.4-10.4); MONOCYTES % 5.9 % (2.0-8.0); NEUTROPHILS % 58.8 % (40.0-76.0); PLATELET 203 x1000/uL (130-400); RED BLOOD CELL COUNT 4.07 mill/uL (4.7-6.1); RED CELL DISTRIBUTION WIDTH 16.3 % (11.6-14.6); WHITE BLOOD COUNT 6.8 x1000/uL (4.5-11.0)
[2024-03-11] MEDS: FOLIC ACID 1 MG, THIAMINE HCL 100 MG, MVI, ADULT NO.1 10 ML in DEXTROSE 5% WATER 1,000 ML IV ONE (13:12)
[2024-03-11 13:23] LABS: CHLORIDE 113 mEq/L (98-107); POTASSIUM 3.4 mEq/L (3.5-5.1); SODIUM 148 mEq/L (136-145)
[2024-03-11 13:24] LABS: CARBON DIOXIDE 25 mEq/L (21-32)
[2024-03-11 13:29] LABS: GLUCOSE 66 mg/dL (70-105)
[2024-03-11 13:30] LABS: UREA NITROGEN BLOOD 15 mg/dL (9-23)
[2024-03-11 13:39] LABS: ETHANOL BLOOD 387 mg/dL (<10)
[2024-03-11 13:47] LABS: TROPONIN I HIGH SENSITIVITY 264 ng/L (3.0-53)
[2024-03-11 14:00] VITALS: BP 125/68; PULSE 65; RESP 20; O2SAT 100
[2024-03-11] MEDS: ASPIRIN 325MG EC TABLET PO ONE (14:13)
[2024-03-11 14:36] LABS: CLARITY URINE CLEAR (CLEAR); COLOR URINE YELLOW (YELLOW); GLUCOSE URINE NEGATIVE (NEGATIVE); KETONES URINE NEGATIVE (NEGATIVE); LEUKOCYTE ESTERASE URINE NEGATIVE (NEGATIVE); NITRITE URINE NEGATIVE (NEGATIVE); OCCULT BLOOD URINE NEGATIVE (NEGATIVE); PH URINE 5.5 (4.5-8.0); PROTEIN URINE TRACE (NEGATIVE); SPECIFIC GRAVITY URINE 1.006 (1.005-1.030); UROBILINOGEN URINE 0.2 E.U./dL (0.2-1.0)
[2024-03-11 15:00] LABS: *AMPHETAMINES SCREEN URINE NEGATIVE (NEGATIVE); *BARBITURATES SCREEN URINE NEGATIVE (NEGATIVE); *BENZODIAZEPINES SCREEN URINE NEGATIVE (NEGATIVE); *COCAINE SCREEN URINE NEGATIVE (NEGATIVE)
[2024-03-11 15:01] LABS: CANNABINOID URINE SCREEN PRESUMPTIVE POSITIVE (NEGATIVE); ECSTASY MDMA SCREEN URINE NEGATIVE (NEGATIVE); METHADONE URINE SCREEN NEGATIVE (NEGATIVE); OPIATES URINE SCREEN NEGATIVE (NEGATIVE); PHENCYCLIDINE URINE SCREEN NEGATIVE (NEGATIVE)
[2024-03-11 15:13] LABS: SQUAMOUS EPITHELIAL CELL URINE NONE SEEN /lpf (RARE/1+)
[2024-03-11 15:14] LABS: BACTERIA URINE NONE SEEN; RBC URINE NONE SEEN /hpf (0-2); WBC URINE 0-2 /hpf (0-2)
[2024-03-11] MEDS ORDERED: GUAIFENESIN 200MG/10ML SUGAR FREE UDC PO PRN (15:45)
[2024-03-11] MEDS ORDERED: ONDANSETRON HCL 4MG/2ML INJ IV PRN (15:45)
[2024-03-11] MEDS ORDERED: IPRATROPIUM/ALBUTEROL 0.5-3(2.5)MG/3ML NEB NEB PRN (15:45)
[2024-03-11] MEDS ORDERED: ACETAMINOPHEN 325MG TABLET PO PRN ×2 (15:45)
[2024-03-11] MEDS ORDERED: CLONIDINE 0.1MG TABLET PO PRN (15:45)
[2024-03-11] MEDS ORDERED: MAGNESIUM/ALUMINUM HYDROXIDE/SIMETHICONE 30ML UDC PO PRN (15:45)
[2024-03-11] MEDS ORDERED: NITROGLYCERIN 0.4MG TABLET SL SL PRN (15:45)
[2024-03-11] MEDS ORDERED: KETOROLAC 15MG/ML VIAL IV PRN ×2 (15:45→17:15)
[2024-03-11] MEDS ORDERED: DOCUSATE SODIUM 100MG CAPSULE PO PRN (15:45)
[2024-03-11] MEDS ORDERED: POTASSIUM CHLORIDE 20MEQ TABLET SR PO NR (16:00)
[2024-03-11 16:29] LABS: TROPONIN I HIGH SENSITIVITY 260 ng/L (3.0-53)
[2024-03-11 17:03] LABS: T4 FREE 1.15 ng/dL (0.89-1.76); THYROID STIMULATING HORMONE 0.15 uIU/mL (0.55-4.78)
[2024-03-11] MEDS ORDERED: ZOLPIDEM TARTRATE 5MG TABLET PO PRN (21:00)
[2024-03-11] MEDS ORDERED: LEVETIRACETAM 500MG TABLET PO SCH (21:00)
[2024-03-12] MEDS ORDERED: FURO40TA5 PO (02:03)
[2024-03-12] MEDS ORDERED: LEVE500T19 PO (02:03)
[2024-03-12] MEDS ORDERED: METO200T34 PO (02:03)
[2024-03-12] MEDS ORDERED: ATOR-2 PO ×2 (02:03→16:04)
[2024-03-12] MEDS ORDERED: ISOS120T13 PO (02:03)
[2024-03-12] MEDS ORDERED: SACU1TAB7 PO (02:03)
[2024-03-12] MEDS ORDERED: ENOXAPARIN 40MG/0.4ML SYR SUBCUT SCH (09:00)
[2024-03-12] MEDS ORDERED: ASPIRIN 81MG EC TABLET PO SCH (09:00)
[2024-03-12] MEDS ORDERED: PANTOPRAZOLE SODIUM 40 MG/VIAL IV SCH (09:00)
[2024-03-12] MEDS ORDERED: RANO500T6 PO (16:04)
[2024-03-12] MEDS ORDERED: APIX5TAB PO (16:05)
[2024-03-12] MEDS ORDERED: FOLI-43 PO (16:08)
[2024-03-12] MEDS ORDERED: N325 SL (16:08)
== END 2024-03-11 18:33 | disposition left against medical advice (07) ==
LOC: ER 11:42 → EDBEDREQTM 14:06 → EDBEDREQ 14:06 → ER 18:33
DX: F10.129 Alcohol abuse with intoxication, unspecified (principal); R56.9 Unspecified convulsions; E78.00 Pure hypercholesterolemia, unspecified; J44.1 Chronic obstructive pulmonary disease with (acute) exacerbation; I11.0 Hypertensive heart disease with heart failure; I50.9 Heart failure, unspecified; Z88.5 Allergy status to narcotic agent; Z88.8 Allergy status to other drugs, medicaments and biological substances; Z86.73 Personal history of transient ischemic attack (TIA), and cerebral infarction without residual deficits; Z79.82 Long term (current) use of aspirin; Z79.899 Other long term (current) drug therapy; Y90.8 Blood alcohol level of 240 mg/100 ml or more
CPT/HCPCS: 80061; 80305; 80048; 81003; 80320; 83036; 84439; 84443; 85025; 84484; 36415; 71045; 70450; 72125; 93970; 93005; 96367; 96365; 99285; J1953; J3490 ×2; J3411; J7070; Z7610 ×2; G0480

== ENCOUNTER 2024-03-11 23:10 | Inpatient (IN) | payer MEDICAID ==
[~2024-03-11] VITALS: Ht 175.3 cm; Wt 75.4 kg
[2024-03-11 23:20] VITALS: O2SAT 97
[2024-03-12 01:01] LABS: *AMPHETAMINES SCREEN URINE NEGATIVE (NEGATIVE); *BARBITURATES SCREEN URINE NEGATIVE (NEGATIVE); *BENZODIAZEPINES SCREEN URINE NEGATIVE (NEGATIVE); *COCAINE SCREEN URINE NEGATIVE (NEGATIVE)
[2024-03-12 01:02] LABS: CANNABINOID URINE SCREEN PRESUMPTIVE POSITIVE (NEGATIVE); ECSTASY MDMA SCREEN URINE NEGATIVE (NEGATIVE); METHADONE URINE SCREEN NEGATIVE (NEGATIVE); OPIATES URINE SCREEN NEGATIVE (NEGATIVE); PHENCYCLIDINE URINE SCREEN NEGATIVE (NEGATIVE)
[2024-03-12] MEDS: LEVETIRACETAM 500MG PREMIX 100 ML IV ONE (01:27)
[2024-03-12] MEDS ORDERED: LORAZEPAM 2MG/ML INJ IV PRN ×2 (01:45→17:45)
[2024-03-12] MEDS ORDERED: CLONIDINE 0.1MG TABLET PO PRN (01:45)
[2024-03-12] MEDS ORDERED: IPRATROPIUM/ALBUTEROL 0.5-3(2.5)MG/3ML NEB HHN PRN (01:45)
[2024-03-12] MEDS ORDERED: ACETAMINOPHEN 325MG TABLET PO PRN (01:45)
[2024-03-12 01:51] LABS: CHLORIDE 109 mEq/L (98-107); POTASSIUM 3.5 mEq/L (3.5-5.1); SODIUM 145 mEq/L (136-145)
[2024-03-12 01:52] LABS: CALCIUM 8.7 mg/dL (8.7-10.4); CARBON DIOXIDE 26 mEq/L (21-32)
[2024-03-12 01:57] LABS: CREATININE 0.9 mg/dL (0.6-1.3); GLUCOSE 137 mg/dL (70-105); UREA NITROGEN BLOOD 14 mg/dL (9-23); WHITE BLOOD COUNT 7.4 x1000/uL (4.5-11.0)
[2024-03-12 01:58] LABS: ETHANOL BLOOD 286 mg/dL (<10); HEMATOCRIT. 40.8 % (42.0-52.0); HEMOGLOBIN. 13.8 g/dL (14.0-18.0); MEAN CORPUSCULAR HEMOGLOBIN 36.3 pg (28.0-32.0); MEAN CORPUSCULAR HGB CONC 33.8 g/dL (31.0-37.0); MEAN CORPUSCULAR VOLUME 104.3 fL (80.0-94.0); MEAN PLATELET VOLUME 9.7 fl (7.4-10.4); NEUTROPHILS % 69.2 % (40.0-76.0); PLATELET 198 x1000/uL (130-400); RED BLOOD CELL COUNT 3.92 mill/uL (4.7-6.1); RED CELL DISTRIBUTION WIDTH 15.6 % (11.6-14.6)
[2024-03-12 01:59] LABS: BASOPHILS % 0.8 % (0.0-2.0); LYMPHOCYTES % 25.8 % (20.0-50.0)
[2024-03-12] MEDS ORDERED: ISOS120T13 PO (02:03)
[2024-03-12] MEDS ORDERED: SACU1TAB7 PO (02:03)
[2024-03-12] MEDS ORDERED: LEVE500T19 PO (02:03)
[2024-03-12] MEDS ORDERED: METO200T34 PO (02:03)
[2024-03-12] MEDS ORDERED: FURO40TA5 PO (02:03)
[2024-03-12] MEDS ORDERED: ATOR-2 PO ×2 (02:03→16:04)
[2024-03-12] MEDS: MVI, ADULT NO.1 10 ML, FOLIC ACID 1 MG, THIAMINE HCL 100 MG in SODIUM CHLORIDE 0.9% 1,0... IV SCH (03:59)
[2024-03-12 04:09] VITALS: BP 104/52; PULSE 77; RESP 18; TEMP 36.9474; O2SAT 97
[2024-03-12] MEDS: LEVETIRACETAM 1000MG PREMIX 100 ML IV SCH ×2 (06:30→21:05)
[2024-03-12 08:25] VITALS: BP 129/73; PULSE 84; RESP 18; TEMP 36.5848
[2024-03-12] MEDS ORDERED: LEVETIRACETAM 1,000MG in NACL 100ML PREMIX IV SCH (09:00)
[2024-03-12] MEDS ORDERED: MEDICATION NOT ON FORMULARY EA (Atorvastatin Calcium 1 TAB) PO SCH (09:00)
[2024-03-12] MEDS: CARVEDILOL 3.125 MG TABLET PO SCH (10:51)
[2024-03-12] MEDS: FAMOTIDINE 20MG TABLET PO SCH (10:51)
[2024-03-12] MEDS: ASPIRIN 81MG EC TABLET PO SCH (10:52)
[2024-03-12] MEDS: APIXABAN 5 MG TABLET PO SCH (10:52)
[2024-03-12] MEDS: MAGNESIUM/ALUMINUM HYDROXIDE/SIMETHICONE 30ML UDC PO PRN (11:07)
[2024-03-12] MEDS: THIAMINE HCL 100MG TABLET PO SCH (11:07)
[2024-03-12] MEDS: POTASSIUM CHLORIDE 20MEQ/PACKET PO SCH (11:07)
[2024-03-12] MEDS: MAGNESIUM OXIDE 400MG TABLET PO SCH (11:23)
[2024-03-12] MEDS: SACUBITRIL/VALSARTAN 49MG/51MG TABLET PO SCH (11:23)
[2024-03-12 12:00] VITALS: BP 132/79; PULSE 74; RESP 18; TEMP 36.9474; O2SAT 99
[2024-03-12 13:28] LABS: T4 FREE 1.03 ng/dL (0.89-1.76); THYROID STIMULATING HORMONE 0.83 uIU/mL (0.55-4.78)
[2024-03-12 13:57] LABS: VITAMIN B12 SERUM 580 pg/mL (211-911)
[2024-03-12 14:14] LABS: FOLIC ACID (FOLATE) SERUM 44.66 ng/mL (>5.38)
[2024-03-12 16:00] VITALS: BP 122/75; PULSE 75; RESP 18; TEMP 36.83628; O2SAT 99
[2024-03-12] MEDS ORDERED: RANO500T6 PO (16:04)
[2024-03-12] MEDS ORDERED: APIX5TAB PO (16:05)
[2024-03-12] MEDS ORDERED: FOLI-43 PO (16:08)
[2024-03-12] MEDS ORDERED: N325 SL (16:08)
[2024-03-12] MEDS ORDERED: KETOROLAC 15MG/ML VIAL IV PRN (17:30)
[2024-03-12] MEDS: FUROSEMIDE 40MG TABLET PO SCH (18:00)
[2024-03-12 18:52] LABS: CREATINE KINASE 271 IU/L (46-171)
[2024-03-12 20:00] VITALS: BP 130/83; PULSE 82; RESP 18; TEMP 37.00296; O2SAT 96
[2024-03-12] MEDS ORDERED: *PATIENT'S OWN MEDICATION STORAGE XX SCH (20:00)
[2024-03-12] MEDS ORDERED: FAMOTIDINE 20MG TABLET PO SCH (21:00)
[2024-03-12] MEDS: ATORVASTATIN CALCIUM 40MG TABLET PO SCH (21:05)
[2024-03-12 22:02] LABS: CREATINE KINASE 318 IU/L (46-171)
[2024-03-12 22:04] LABS: TROPONIN I HIGH SENSITIVITY 108 ng/L (3.0-53)
[2024-03-13] VITALS: BP 135/88; PULSE 78; RESP 20; TEMP 36.83628; O2SAT 95
[2024-03-13 01:36] LABS: CREATINE KINASE 330 IU/L (46-171)
[2024-03-13 01:56] LABS: TROPONIN I HIGH SENSITIVITY 73 ng/L (3.0-53)
[2024-03-13 04:00] VITALS: BP 127/86; PULSE 71; RESP 20; TEMP 36.83628; O2SAT 97
[2024-03-13 05:36] LABS: BASOPHILS % 0.4 % (0.0-2.0); DIFFERENTIAL COMMENT 0; EOSINOPHILS % 0.1 % (0.0-5.0); HEMATOCRIT. 37.9 % (42.0-52.0); HEMOGLOBIN. 13.2 g/dL (14.0-18.0); LYMPHOCYTES % 13.9 % (20.0-50.0); MEAN CORPUSCULAR HEMOGLOBIN 35.8 pg (28.0-32.0); MEAN CORPUSCULAR HGB CONC 34.9 g/dL (31.0-37.0); MEAN CORPUSCULAR VOLUME 102.4 fL (80.0-94.0); MEAN PLATELET VOLUME 10.1 fl (7.4-10.4); MONOCYTES % 7.6 % (2.0-8.0); PLATELET 179 x1000/uL (130-400); RED CELL DISTRIBUTION WIDTH 15.5 % (11.6-14.6); WHITE BLOOD COUNT 7.4 x1000/uL (4.5-11.0)
[2024-03-13 05:38] LABS: CHLORIDE 107 mEq/L (98-107); POTASSIUM 3.8 mEq/L (3.5-5.1); SODIUM 139 mEq/L (136-145)
[2024-03-13 05:39] LABS: CARBON DIOXIDE 28 mEq/L (21-32)
[2024-03-13 05:44] LABS: CREATININE 0.9 mg/dL (0.6-1.3); GLUCOSE 86 mg/dL (70-105); UREA NITROGEN BLOOD 12 mg/dL (9-23)
[2024-03-13 05:46] LABS: ALANINE AMINOTRANSFERASE 25 IU/L (10-49); ALBUMIN 3.7 g/dL (3.2-4.8); ASPARTATE AMINOTRANSFERASE 37 IU/L (<34); CREATINE KINASE 355 IU/L (46-171); PHOSPHORUS 2.1 mg/dL (2.5-4.9)
[2024-03-13 05:47] LABS: BILIRUBIN TOTAL 2.3 mg/dL (0.1-1.0); PROTEIN TOTAL 6.4 g/dL (6.0-8.3)
[2024-03-13 06:04] LABS: TROPONIN I HIGH SENSITIVITY 69 ng/L (3.0-53)
[2024-03-13] MEDS: LEVETIRACETAM 500MG TABLET PO SCH (08:55)
[2024-03-13] MEDS ORDERED: POTASSIUM PHOSPHATE 20 MMOL in SODIUM CHLORIDE 0.9% 243.3333 ML IV NR (10:00)
[2024-03-13 12:00] VITALS: BP 122/77; PULSE 60; RESP 19; TEMP 36.55848; O2SAT 100
[2024-03-13] MEDS: ONDANSETRON HCL 4MG/2ML INJ IV PRN (13:02)
[2024-03-13] MEDS: MAGNESIUM 2 G PREMIX 50 ML IV NR (13:06)
[2024-03-13] MEDS: MAGNESIUM OXIDE 400MG TABLET PO SCH (14:15)
[2024-03-13 16:00] VITALS: BP 124/79; PULSE 62; RESP 17; TEMP 36.55848; O2SAT 100
[2024-03-13] MEDS: POTASSIUM-SODIUM PHOSPHATE POWDER PACKET PO NR (17:29)
[2024-03-13 19:08] LABS: BILIRUBIN DIRECT 0.6 mg/dL (<=3.0)
== END 2024-03-13 19:37 | disposition left against medical advice (07) | DRG 42 ==
LOC: ER 23:10 → 5WST 03-12 01:24 → EDBEDREQTM 03-12 01:58 → EDBEDREQ 03-12 01:58 → 7EST 03-12 08:29
PROVIDERS: ADMIT Internal Medicine; ATTEND Internal Medicine
DX: G31.2 Degeneration of nervous system due to alcohol (principal); G92.8 Other toxic encephalopathy; I21.A1 Myocardial infarction type 2; I50.9 Heart failure, unspecified; I11.0 Hypertensive heart disease with heart failure; Y90.8 Blood alcohol level of 240 mg/100 ml or more; G40.909 Epilepsy, unspecified, not intractable, without status epilepticus; I25.10 Atherosclerotic heart disease of native coronary artery without angina pectoris; E78.00 Pure hypercholesterolemia, unspecified; J44.89 Other specified chronic obstructive pulmonary disease; D53.9 Nutritional anemia, unspecified; Z53.29 Procedure and treatment not carried out because of patient's decision for other reasons; F10.129 Alcohol abuse with intoxication, unspecified; I49.9 Cardiac arrhythmia, unspecified; Z88.5 Allergy status to narcotic agent; Z86.73 Personal history of transient ischemic attack (TIA), and cerebral infarction without residual deficits; Z91.148 Patient's other noncompliance with medication regimen for other reason; Z95.5 Presence of coronary angioplasty implant and graft; Z79.01 Long term (current) use of anticoagulants; Z79.82 Long term (current) use of aspirin; Z79.899 Other long term (current) drug therapy; Z88.1 Allergy status to other antibiotic agents; Z99.81 Dependence on supplemental oxygen
CPT/HCPCS: 36415; 80048; 80053; 80305; 80320; 82248; 82550; 82607; 82746; 83735; 84100; 84439; 84443; 84484; 85025; 93005; 97161; 99285; C1893; J1953; J2405; J3411; J3475; J3490; J7030; J7050; G0480

== ENCOUNTER 2024-03-20 03:46 | Emergency (ER) | payer MEDICAID ==
[~2024-03-20] VITALS: Ht 172.7 cm; Wt 79.0 kg
[~2024-03-20 03:46] MED LIST changes: -ALBU6.7H3 INH; -ASPI-1497 PO; +ATOR-2 PO; -ATOR80TA PO; -ATROV INH; -CLOP75TA33 PO; -COR3 PO; +FOLI-43 PO; -FURO-151 PO; +FURO40TA5 PO; +ISOS120T13 PO; -LOSA25TA26 PO; -METO-385 PO; +METO200T34 PO; +N325 SL; -NITR0.4T49 SL; -PANT40TA51 PO; -RANO10003 PO; +RANO500T6 PO; +SACU1TAB7 PO
[2024-03-20 03:50] VITALS: TEMP 98; O2SAT 99
[2024-03-20] MEDS: LEVETIRACETAM 1000MG PREMIX 100 ML IV ONE (04:17)
[2024-03-20] MEDS: HYDROCODONE/ACETAMINOPHEN 5/325MG TABLET PO STA (04:18)
[2024-03-20] MEDS: MORPHINE SULFATE 4 MG/ML INJ (FOR IV/IM USE) IV ONE (04:34)
[2024-03-20 04:37] VITALS: BP 124/86; PULSE 103; RESP 17; O2SAT 98
[2024-03-20] MEDS: ONDANSETRON HCL 4MG/2ML INJ IV ONE (04:42)
[2024-03-20] MEDS ORDERED: LEVE1000 MT (05:03)
== END 2024-03-20 05:21 | disposition home or self-care (01) ==
LOC: ER 03:46
DX: R56.9 Unspecified convulsions (principal); E78.00 Pure hypercholesterolemia, unspecified; F17.200 Nicotine dependence, unspecified, uncomplicated; I11.0 Hypertensive heart disease with heart failure; I50.9 Heart failure, unspecified; I25.2 Old myocardial infarction; J44.89 Other specified chronic obstructive pulmonary disease; Z79.899 Other long term (current) drug therapy; Z88.5 Allergy status to narcotic agent; Z88.8 Allergy status to other drugs, medicaments and biological substances
CPT/HCPCS: 99284; 96365; 96375; J1953; J2405; J2270